=== PATIENT | male | born 1970 | race African-American/Black ===

== ENCOUNTER 2018-01-17 12:11 | Inpatient (IN) | payer OTHER ==
[2018-01-17 12:35] VITALS: BMI 20.7
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
[2018-01-17] MEDS ORDERED: chlordiazePOXIDE HCL 25 MG CAPSULE PO ONE (14:57)
[2018-01-17] MEDS ORDERED: MAGNESIUM CITRATE 300 ML BOTTLE PO PRN (14:57)
[2018-01-17] MEDS ORDERED: MAGNESIUM HYDROX 2400MG/30ML ORAL SUSPENSION 30 ML CUP PO PRN (14:57)
[2018-01-17] MEDS ORDERED: guaiFENesin/D-METHORPHAN HB 10 ML UNIT-DOSE CUPS PO PRN (14:57)
[2018-01-17] MEDS ORDERED: MENTHOL/PHENOL 1 EACH UD MM PRN (14:57)
[2018-01-17] MEDS ORDERED: LOPERAMIDE HCL 2 MG CAPSULE PO PRN (14:57)
[2018-01-17] MEDS ORDERED: MAG HYDROX/AL HYDROX/SIMETH 30 ML UNIT-DOSE CUP PO PRN (14:57)
[2018-01-17] MEDS ORDERED: P-EPHED 60MG/TRIPROLIDI 2.5MG TABLET PO PRN (14:57)
[2018-01-17] MEDS ORDERED: chlordiazePOXIDE HCL 25 MG CAPSULE PO PRN (14:57)
[2018-01-17] MEDS ORDERED: METHADONE HCL 10 MG TABLET (FOR DETOX USE ONLY) PO ONE ×2 (14:57→23:00)
[2018-01-17] MEDS ORDERED: ACETAMINOPHEN 325 MG TABLET (FP) PO PRN (14:57)
[2018-01-17] MEDS ORDERED: IBUPROFEN 400 MG TABLET (FP) PO PRN (14:57)
[2018-01-17] MEDS ORDERED: hydrOXYzine PAMOATE 25 MG CAPSULE (FP) PO PRN (14:57)
[2018-01-17] MEDS: chlordiazePOXIDE HCL 25 MG CAPSULE PO SCH ×2 (17:02→22:05)
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
[2018-01-17] MEDS: MELATONIN 5 MG TABLETS PO SCH (22:05)
[2018-01-17] MEDS: BACITRACIN 15 GM TUBE TOPICAL OINTMENT TP SCH (22:05)
[2018-01-17] MEDS: TRIAMCINOLONE ACET 0.1% ORAL 5 GM TUBE DT SCH (22:06)
[2018-01-17] MEDS: THIAMINE HCL 100 MG TABLET (FP) PO SCH (22:06)
[2018-01-18] MEDS: chlordiazePOXIDE HCL 25 MG CAPSULE PO SCH ×4 (05:37→22:10)
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
[2018-01-18] MEDS ORDERED: BACITRACIN 0.9 GM PACKET ONE (09:13)
[2018-01-18] MEDS ORDERED: METHADONE HCL 10 MG TABLET (FOR DETOX USE ONLY) PO SCH (10:00)
[2018-01-18] MEDS: PRENATAL VITAMINS W/ FOLIC ACID TABLET (FP) PO SCH (10:15)
[2018-01-18] MEDS: BACITRACIN 15 GM TUBE TOPICAL OINTMENT TP SCH (10:16)
[2018-01-18 11:13] LABS: HEMATOCRIT 40.8 % (35.4-49); HEMOGLOBIN 13.5 GM/dL (11.7-16.9); MCH 28.3 pg (25.7-33.7); MEAN CELL VOLUME 85.7 fl (80-96); MEAN PLT VOLUME 7.2 fl (7.5-11.1); PLATELET COUNT 432 K/MM3 (134-434); RBC 4.77 M/mm3 (4.00-5.60); RDW 14.4 % (11.9-15.9); WHITE BLOOD COUNT 4.6 K/mm3 (4.0-10.0)
[2018-01-18 11:15] LABS: URINE APPEARANCE TURBID; URINE BILIRUBIN NEGATIVE (<2.0 mg/dL); URINE BLOOD NEGATIVE (NEGATIVE); URINE GLUCOSE (UA) NEGATIVE (NEGATIVE); URINE KETONE NEGATIVE (NEGATIVE); URINE LEUK ESTERASE NEGATIVE (NEGATIVE); URINE NITRITE NEGATIVE (NEGATIVE); URINE PROTEIN NEGATIVE (NEGATIVE); URINE UROBILINOGEN NEGATIVE mg/dL (0.2-1.0)
[2018-01-18 11:19] LABS: URINE COLOR DK YELLOW
[2018-01-18 11:20] LABS: CHLORIDE 107 mmol/L (98-107); POTASSIUM 4.2 mmol/L (3.5-5.1); SODIUM 143 mmol/L (136-145)
[2018-01-18 12:09] LABS: ALBUMIN 2.8 g/dl (3.4-5.0); ALK PHOS 93 U/L (45-117); ANION GAP 11 (8-16); BILIRUBIN,TOTAL 0.2 mg/dL (0.2-1.0); BLOOD UREA NITROGEN 14 mg/dL (7-18); CALCIUM 8.3 mg/dL (8.5-10.1); CO2 25 mmol/L (21-32); GLUCOSE,RANDOM 110 mg/dL (74-106); SGOT/AST 13 U/L (15-37); SGPT/ALT 16 U/L (12-78); TOT PROT 6.3 g/dl (6.4-8.2)
[2018-01-18 12:38] LABS: SICKLE CELL SCREEN NEGATIVE (NEGATIVE)
--- NOTE | 2018-01-18 13:09 | PN ---
[facility] CIWA - CIWA Score Nausea/Vomitin-Mild Nausea/No Vomiting Muscle Tremors: 4-Moderate,w/Arms Extend Anxiety: 4-Mod. Anxious/Guarded Agitation: 4-Moderately Restless Paroxysmal Sweats: 1-Minimal Palms Moist Orientation: 0-Oriented Tacttile Disturbances: 0-None Auditory Disturbances: 0-None Visual Disturbances: 0-None Headache: 0-None Present CIWA-Ar Total Score: 14 S COWS - Scale Resting Pulse: 0= [place] 80 or Below Sweatin= Chills/Flushing Restless Observation: 1= Difficult to Sit Still Pupil Size: 0= Normal to Room Light Bone or Joint Aches: 1= Mild Discomfort Runny Nose/ Eye Tearin= None GI Upset > 30mins: 1= Stomach Cramp Tremor Observation of Outstretched Hands: 1= Tremor [place], Not Seen Yawning Observation: 1= 1-2x During Session Anxiety or Irritability: 1=Feels Anxious/Irritable Goose Flesh Skin: 0=Smooth Skin COWS Score: 7 [facility] Progress Note (SOAP) Subjective: mild joint ache body ache tremor sweat mild gi distress Objective: 01/18/18 13:08 Vital Signs Temperature 99 F 01/18/18 10:00 Pulse Rate 85 01/18/18 10:00 Respiratory Rate 18 01/18/18 10:00 Blood Pressure 124/68 01/18/18 10:00 O2 Sat by Pulse Oximetry (%) Laboratory Last Values WBC 4.6 K/mm3 (4.0-10.0) 01/18/18 07:45 RBC 4.77 M/mm3 (4.00-5.60) 01/18/18 07:45 Hgb 13.5 GM/dL (11.7-16.9) 01/18/18 07:45 Hct 40.8 % (35.4-49) 01/18/18 07:45 MCV 85.7 fl (80-96) 01/18/18 07:45 MCH 28.3 pg (25.7-33.7) 01/18/18 07:45 MCHC 33.0 g/dl (32.0-35.9) 01/18/18 07:45 RDW 14.4 % (11.9-15.9) 01/18/18 07:45 Plt Count 432 K/MM3 (134-434) 01/18/18 07:45 MPV 7.2 fl (7.5-11.1) L 01/18/18 07:45 Sickle Cell Screen Negative (NEGATIVE) 01/18/18 07:45 Sodium 143 mmol/L (136-145) 01/18/18 07:45 Potassium 4.2 mmol/L (3.5-5.1) 01/18/18 07:45 Chloride 107 mmol/L (98-107) 01/18/18 07:45 Carbon Dioxide 25 mmol/L (21-32) 01/18/18 07:45 Anion Gap 11 (8-16) 01/18/18 07:45 BUN 14 mg/dL (7-18) 01/18/18 07:45 Creatinine 1.0 mg/dL (0.7-1.3) 01/18/18 07:45 Creat Clearance w eGFR > 60 (>60) 01/18/18 07:45 Random Glucose 110 mg/dL (74-106) H 01/18/18 07:45 Calcium 8.3 mg/dL (8.5-10.1) L 01/18/18 07:45 Total Bilirubin 0.2 mg/dL (0.2-1.0) 01/18/18 07:45 AST 13 U/L (15-37) L 01/18/18 07:45 ALT 16 U/L (12-78) 01/18/18 07:45 Alkaline Phosphatase 93 U/L (45-117) 01/18/18 07:45 Total Protein 6.3 g/dl (6.4-8.2) L 01/18/18 07:45 Albumin 2.8 g/dl (3.4-5.0) L 01/18/18 07:45 Urine Color Dk yellow 01/18/18 07:45 Urine Appearance Turbid 01/18/18 07:45 Urine pH 5.0 (5.0-8.0) 01/18/18 07:45 Ur Specific [place] 1.025 (1.001-1.035) 01/18/18 07:45 Urine Protein Negative (NEGATIVE) 01/18/18 07:45 Urine Glucose (UA) Negative (NEGATIVE) 01/18/18 07:45 Urine Ketones Negative (NEGATIVE) 01/18/18 07:45 Urine Blood Negative (NEGATIVE) 01/18/18 07:45 Urine Nitrite Negative (NEGATIVE) 01/18/18 07:45 Urine Bilirubin Negative (<2.0 mg/dL) 01/18/18 07:45 Urine Urobilinogen Negative mg/dL (0.2-1.0) 01/18/18 07:45 Ur Leukocyte Esterase Negative (NEGATIVE) 01/18/18 07:45 lab noted Assessment: 01/18/18 13:09 withdrawal sx Plan: continue detox
[2018-01-18] MEDS: TRIAMCINOLONE ACET 0.1% ORAL 5 GM TUBE DT SCH ×2 (17:04→22:10)
[2018-01-18] MEDS: MELATONIN 5 MG TABLETS PO SCH (22:10)
[2018-01-18] MEDS: THIAMINE HCL 100 MG TABLET (FP) PO SCH (22:10)
[2018-01-19] MEDS: chlordiazePOXIDE HCL 25 MG CAPSULE PO SCH ×2 (05:15→10:29)
--- NOTE | 2018-01-19 09:10 | EKG ---
Test Reason : Blood Pressure : / mmHG Vent. Rate : 078 BPM Atrial Rate : 078 BPM P-R Int : 150 ms QRS Dur : 082 ms QT Int : 386 ms P-R-T Axes : 085 084 075 degrees QTc Int : 440 ms NORMAL SINUS RHYTHM RIGHT ATRIAL ENLARGEMENT MINIMAL VOLTAGE CRITERIA FOR LVH, MAY BE NORMAL VARIANT BORDERLINE ECG NO PREVIOUS ECGS AVAILABLE Confirmed by MARY SAN MD ([id number]) on 01/19/2018 9:09:51 AM Referred By: Confirmed By:MARY SAN MD
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
[2018-01-19] MEDS: PRENATAL VITAMINS W/ FOLIC ACID TABLET (FP) PO SCH (10:28)
[2018-01-19] MEDS: TRIAMCINOLONE ACET 0.1% ORAL 5 GM TUBE DT SCH ×2 (10:28→22:55)
[2018-01-19] MEDS: BACITRACIN 15 GM TUBE TOPICAL OINTMENT TP SCH (10:28)
[2018-01-19] MEDS: METHADONE HCL 5 MG TABLET (FOR DETOX USE ONLY) PO SCH (10:29)
[2018-01-19] MEDS: chlordiazePOXIDE 5 MG CAPSULE PO SCH ×2 (18:08→22:06)
[2018-01-19] MEDS: THIAMINE HCL 100 MG TABLET (FP) PO SCH (22:06)
[2018-01-19] MEDS: MELATONIN 5 MG TABLETS PO SCH (22:07)
[2018-01-20] MEDS: chlordiazePOXIDE 5 MG CAPSULE PO SCH ×2 (05:50→10:12)
[2018-01-20] MEDS: METHADONE HCL 5 MG TABLET (FOR DETOX USE ONLY) PO SCH (10:11)
[2018-01-20] MEDS: TRIAMCINOLONE ACET 0.1% ORAL 5 GM TUBE DT SCH ×2 (10:11→22:10)
[2018-01-20] MEDS: PRENATAL VITAMINS W/ FOLIC ACID TABLET (FP) PO SCH (10:11)
[2018-01-20] MEDS: BACITRACIN 0.9 GM PACKET TP SCH (10:11)
--- NOTE | 2018-01-20 10:33 | PN ---
[facility] Progress Note (SOAP) Subjective: ALERT,IRRITABLE,ANXIOUS,INTERRUPTED SLEEP,PAIN IN THE BODY Objective: 01/20/18 10:36 Vital Signs Temperature 98.6 F 01/20/18 09:45 Pulse Rate 92 H 01/20/18 09:45 Respiratory Rate 16 01/20/18 09:45 Blood Pressure 123/60 01/20/18 09:45 O2 Sat by Pulse Oximetry (%) 01/20/18 10:37 FASTING BLOOD GLUCOSE PENDING Assessment: 01/20/18 10:37 WITHDRAWAL SYMPTOM Plan: CONTINUE DETOX
[2018-01-20] MEDS: chlordiazePOXIDE HCL 10 MG CAPSULE PO SCH ×2 (17:38→22:07)
[2018-01-20] MEDS: THIAMINE HCL 100 MG TABLET (FP) PO SCH (22:08)
[2018-01-20] MEDS: MELATONIN 5 MG TABLETS PO SCH (22:08)
[2018-01-21] MEDS: chlordiazePOXIDE HCL 10 MG CAPSULE PO SCH ×2 (05:35→11:10)
--- NOTE | 2018-01-21 09:43 | PN ---
S Progress Note (SOAP) Subjective: ALERT,IRRITABLE,ANXIOUS,INTERRUPTED SLEEP Objective: 01/21/18 09:42 Vital Signs Temperature 97.7 F 01/21/18 06:28 Pulse Rate 68 01/21/18 06:28 Respiratory Rate 17 01/21/18 06:28 Blood Pressure 122/69 01/21/18 06:28 O2 Sat by Pulse Oximetry (%) Assessment: 01/21/18 09:42 WITHDRAWAL SYMPTOM Plan: CONTINUE DETOX,DISCHARGE IN AM
[2018-01-21] MEDS ORDERED: METHADONE HCL 10 MG TABLET (FOR DETOX USE ONLY) PO SCH (10:00)
[2018-01-21] MEDS: TRIAMCINOLONE ACET 0.1% ORAL 5 GM TUBE DT SCH ×2 (11:10→22:46)
[2018-01-21] MEDS: PRENATAL VITAMINS W/ FOLIC ACID TABLET (FP) PO SCH (11:10)
[2018-01-21] MEDS: BACITRACIN 0.9 GM PACKET TP SCH (11:10)
[2018-01-21] MEDS: THIAMINE HCL 100 MG TABLET (FP) PO SCH (22:08)
[2018-01-21] MEDS: MELATONIN 5 MG TABLETS PO SCH (22:08)
[2018-01-22] MEDS ORDERED: METHADONE HCL 5 MG TABLET (FOR DETOX USE ONLY) PO SCH (06:00)
[2018-01-22 06:11] VITALS: BP 130/76; PULSE 67; TEMP 97.7
[2018-01-22] MEDS: PRENATAL VITAMINS W/ FOLIC ACID TABLET (FP) PO SCH (09:18)
--- NOTE | 2018-01-22 09:59 | PN ---
S Progress Note (SOAP) Subjective: ALERT,NO COMPLAINT Objective: 01/22/18 09:57 Vital Signs Temperature 97.7 F 01/22/18 06:00 Pulse Rate 67 01/22/18 06:00 Respiratory Rate 18 01/22/18 06:00 Blood Pressure 130/76 01/22/18 06:00 O2 Sat by Pulse Oximetry (%) Assessment: 01/22/18 09:58 DETOX COMPLETED ,NO WITHDRAWAL SYMPTOM Plan: DISCHARGE [facility],FOLLOW UP WITH AFTER CARE PROGRAM ARRANGEMENT
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
== END 2018-01-22 09:24 | disposition home or self-care (01) | DRG 773 ==
LOC: YASAS 12:11 → Y6N 15:46
PROVIDERS: ADMIT Internal Medicine; ATTEND Internal Medicine
PROC: HZ2ZZZZ Detoxification Services for Substance Abuse Treatment (ICD-10-PCS; principal; 2018-01-17)
DX: F19.230 Other psychoactive substance dependence with withdrawal, uncomplicated (principal); F11.23 Opioid dependence with withdrawal; F10.230 Alcohol dependence with withdrawal, uncomplicated; F14.20 Cocaine dependence, uncomplicated; F17.210 Nicotine dependence, cigarettes, uncomplicated; E86.0 Dehydration; A69.0 Necrotizing ulcerative stomatitis; S63.8X2D Sprain of other part of left wrist and hand, subsequent encounter; Y04.0XXD Assault by unarmed brawl or fight, subsequent encounter
CPT/HCPCS: 36415; 80053; 81003; 82947; 85027; 85660; 86593; 93005; 93010

== ENCOUNTER 2018-02-25 11:47 | Inpatient (IN) | payer OTHER ==
[2018-02-25 12:35] VITALS: BMI 22.3
--- NOTE | 2018-02-25 14:24 | HP ---
COWS - Scale Resting Pulse: 1= SD 81-100 Sweatin= Chills/Flushing Restless Observation: 1= Difficult to Sit Still Pupil Size: 2= Moderately Dilated Bone or Joint Aches: 2= Severe Diffuse Aches Runny Nose/ Eye Tearin= Runny Nose/Eyes GI Upset > 30mins: 1= Stomach Cramp (denies diarrhea mild nausea) Tremor Observation: 2= Slight Tremor Visible Yawning Observation: 2= >3x During Session Anxiety or Irritability: 2=Irritable/Anxious Goose Flesh Skin: 0=Smooth Skin COWS Score: 16 Admission [facility] Chief Complaint: opioid withdrawal sx Allergies/Adverse Reactions: Allergies Allergy/AdvReac Type Severity Reaction Status Date / Time No Known Allergies Allergy Verified 02/25/18 14:31 History of Present Illness: 47 years old male with long history of opioid nicotine dependence has Exam Limitations: No Limitations - Ebola screening Have you traveled outside of the country in the last 21 days: No Have you had contact with anyone from an Ebola affected area: No Have you been sick,other than usual withdrawal symptoms: No Do you have a fever: No - Review of Systems Constitutional: Loss of Appetite, Changes in sleep, Unintentional Wgt. Loss, Unexplained wgt Loss EENT: reports: No Symptoms Reported, Nose Congestion, Other (nasal septal erosive by cocaine and heroin sniffy no bleeding) Respiratory: reports: No Symptoms reported Cardiac: reports: No Symptoms Reported GI: reports: Nausea, Poor Fluid Intake, Abdominal cramping : reports: No Symptoms Reported Musculoskeletal: reports: Back Pain, Joint Pain, Muscle Pain, Neck Pain Integumentary: reports: No Symptoms Reported Neuro: reports: Tremors Endocrine: reports: No Symptoms Reported Hematology: reports: No Symptoms Reported Psychiatric: reports: Judgement Intact, Orientated x3, Depressed Other Systems: Reviewed and Negative Patient History - Patient Medical History Hx Anemia: No Hx Asthma: No Hx Chronic Obstructive Pulmonary Disease (COPD): No Hx Cancer: No Hx Cardiac Disorders: No Hx Congestive Heart Failure: No Hx Hypertension: No Hx Hypercholesterolemia: No Hx Pacemaker: No HX Cerebrovascular Accident: No Hx Seizures: No Hx Diabetes: No Hx Gastrointestinal Disorders: No Hx Liver Disease: No Hx Genitourinary Disorders: No Hx Sexually Transmitted Disorders: No Hx Renal Disease (ESRD): No Hx Thyroid Disease: No Hx Human Immunodeficiency Virus (HIV): No Hx Hepatitis C: No Hx Depression: Yes Hx Suicide Attempt: No Hx Bipolar Disorder: No Hx Schizophrenia: No - Patient Surgical History Past Surgical History: No Hx Neurologic Surgery: No Hx Cataract Extraction: No Hx Cardiac Surgery: No Hx Lung Surgery: No Hx Breast Surgery: No Hx Breast Biopsy: No Hx Abdominal Surgery: No Hx Appendectomy: No Hx Cholecystectomy: No Hx Genitourinary Surgery: No Hx Orthopedic Surgery: No - PPD History Previous Implant?: Yes Documented Results: Negative w/proof Implanted On Prior [facility] Admission?: Yes Date: 01/19/18 PPD to be Administered?: No - Smoking Cessation Smoking history: Current every day smoker Have you smoked in the past 12 months: Yes Aproximately how many cigarettes per day: 20 Cigars Per Day: 0 Hx Chewing Tobacco Use: No Initiated information on smoking cessation: Yes 'Breaking Loose' booklet given: 02/25/18 - Substance & Tx. History Hx Alcohol Use: No Hx Substance Use: Yes Substance Use Type: Opiates Hx Substance Use Treatment: Yes (12/2017 [facility] Family Disease History - Family Disease History Family Disease History: Other: Father (living,healthy), Mother (living, healthy) , Brother (four - living - healthy), Sister (three - living - healthy), Son ( three - adult - healthy), Daughter (three - adult -healthy) Admission Physical Exam S - Vital Signs Vital Signs: Vital Signs - 24 hr 02/25/18 12:32 Temperature 97.6 F Pulse Rate 93 H Respiratory 20 Rate Blood Pressure 124/72 - Physical General Appearance: Yes: Appropriately Dressed, Mild Distress, Thin, Tremorous, Irritable, Sweating, Anxious HEENTM: Yes: Hearing grossly Normal, Normocephalic, Normal Voice Respiratory: Yes: Chest Non-Tender, Lungs Clear, Normal Breath Sounds, No Respiratory Distress, No Accessory Muscle Use Neck: Yes: Supple, Trachea in good position Breast: Yes: Breasts Symetrical Cardiology: Yes: Regular Rhythm, S1, S2, Tachycardia Abdominal: Yes: Non Tender, Flat, Increased Bowel Sounds Genitourinary: Yes: Within Normal Limits Back: Yes: Normal Inspection Musculoskeletal: Yes: full range of Motion, Gait Steady, Back pain, Muscle Pain Extremities: Yes: Normal Inspection, Normal Range of Motion, Non-Tender, Tremors Neurological: Yes: Fully Oriented, Motor Strength 5/5, Normal Response, Depressed Affect Integumentary: Yes: Warm Lymphatic: Yes: Within Normal Limits - Diagnostic (1) Depression (emotion) Current Visit: Yes Status: Suspected Qualifiers: Depression Type: dysthymia Qualified Code(s): F34.1 - Dysthymic disorder (2) Nicotine dependence Current Visit: Yes Status: Acute Qualifiers: Nicotine product type: cigarettes Substance use status: in withdrawal Qualified Code(s): F17.213 - Nicotine dependence, cigarettes, with withdrawal (3) Opioid dependence with withdrawal Current Visit: Yes Status: Acute Cleared for Admission [facility] - Detox or Rehab [facility] Level of Care: Medically Managed Detox Regimen/Protocol: Methadone [facility] Breath Alcohol Content Breath Alcohol Content: 0 Urine Drug Screen - Control Is Test Valid: Yes - Results Drug Screen Negative: No Urine Drug Screen Results: SUPRIYA-Cocaine, OPI-Opiates
[2018-02-25] MEDS ORDERED: MAGNESIUM HYDROX 2400MG/30ML ORAL SUSPENSION 30 ML CUP PO PRN (14:32)
[2018-02-25] MEDS ORDERED: NICOTINE POLACRILEX 4 MG GUM BC PRN (14:32)
[2018-02-25] MEDS ORDERED: MENTHOL/PHENOL 1 EACH UD MM PRN (14:32)
[2018-02-25] MEDS ORDERED: LOPERAMIDE HCL 2 MG CAPSULE PO PRN (14:32)
[2018-02-25] MEDS ORDERED: ACETAMINOPHEN 325 MG TABLET (FP) PO PRN (14:32)
[2018-02-25] MEDS ORDERED: guaiFENesin/D-METHORPHAN HB 10 ML UNIT-DOSE CUPS PO PRN (14:32)
[2018-02-25] MEDS ORDERED: MAGNESIUM CITRATE 300 ML BOTTLE PO PRN (14:32)
[2018-02-25] MEDS ORDERED: P-EPHED 60MG/TRIPROLIDI 2.5MG TABLET PO PRN (14:32)
[2018-02-25] MEDS ORDERED: MAG HYDROX/AL HYDROX/SIMETH 30 ML UNIT-DOSE CUP PO PRN (14:32)
[2018-02-25] MEDS ORDERED: METHADONE HCL 10 MG TABLET (FOR DETOX USE ONLY) PO ONE ×2 (16:45→23:00)
[2018-02-25] MEDS: diazePAM 5 MG TABLET PO PRN ×2 (17:13→22:14)
[2018-02-25] MEDS: NICOTINE 21 MG/24 HOURS TOPICAL PATCH TD SCH (17:14)
[2018-02-25 18:26] LABS: HEMATOCRIT 42.1 % (35.4-49); MCH 28.7 pg (25.7-33.7); MCHC 33.2 g/dl (32.0-35.9); MEAN CELL VOLUME 86.3 fl (80-96); MEAN PLT VOLUME 7.7 fl (7.5-11.1); PLATELET COUNT 313 K/MM3 (134-434); RBC 4.87 M/mm3 (4.00-5.60); WHITE BLOOD COUNT 4.3 K/mm3 (4.0-10.0)
[2018-02-25 19:31] LABS: ALBUMIN 3.4 g/dl (3.4-5.0); ANION GAP 5 (8-16); BILIRUBIN,TOTAL 0.4 mg/dL (0.2-1.0); BLOOD UREA NITROGEN 14 mg/dL (7-18); CALCIUM 8.4 mg/dL (8.5-10.1); CHLORIDE 108 mmol/L (98-107); CO2 28 mmol/L (21-32); GLUCOSE,RANDOM 79 mg/dL (74-106); SGPT/ALT 26 U/L (12-78); SODIUM 141 mmol/L (136-145); TOT PROT 6.7 g/dl (6.4-8.2)
[2018-02-25 19:32] LABS: ALK PHOS 107 U/L (45-117)
[2018-02-25 19:45] LABS: POTASSIUM 4.4 mmol/L (3.5-5.1); SGOT/AST 25 U/L (15-37)
[2018-02-25] MEDS: THIAMINE HCL 100 MG TABLET (FP) PO SCH (22:12)
[2018-02-25] MEDS: MELATONIN 5 MG TABLETS PO PRN (22:16)
[2018-02-25 23:45] LABS: URINE APPEARANCE TURBID; URINE BILIRUBIN NEGATIVE (<2.0 mg/dL); URINE COLOR YELLOW; URINE GLUCOSE (UA) NEGATIVE (NEGATIVE); URINE KETONE NEGATIVE (NEGATIVE); URINE LEUK ESTERASE NEGATIVE (NEGATIVE); URINE NITRITE NEGATIVE (NEGATIVE); URINE PROTEIN NEGATIVE (NEGATIVE)
--- NOTE | 2018-02-26 09:23 | CONSULT ---
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 This is one of multiple admissions for patient. Pt. admitted to for alcohol and cocaine dependence. Substance Abuse History: Smoking Cessation. Smoking history: Current every day smoker. Have you smoked in the past 12 months: Yes. Aproximately how many cigarettes per day: 20. Cigars Per Day: 0. Hx Chewing Tobacco Use: No. Initiated information on smoking cessation: Yes. 'Breaking Loose' booklet given : 02/25/18. - Substance & Tx. History. Hx Alcohol Use: No. Hx Substance Use: Yes. Substance Use Type: Opiates. Hx Substance Use Treatment: Yes (12/2017 [facility] Psychiatric History: Patient denies h/o psychiatric hospitalizations, outpatient care, and suicide attempt. Mental Status Exam - Mental Status Exam Alert and Oriented to: Time, Place, Person Cognitive Function: Good Patient Appearance: Well Groomed Mood: Euthymic Affect: Mood Congruent Patient Behavior: Appropriate, Cooperative Speech Pattern: Appropriate Voice Loudness: Normal Thought Process: Goal Oriented Thought Disorder: Not Present Hallucinations: Denies Suicidal Ideation: Denies Homicidal Ideation: Denies Insight/Judgement: Poor Sleep: Fair Appetite: Fair Muscle strength/Tone: Normal Gait/Station: Normal Psychiatric Findings - Problem List ([place] 1, 2,3) (1) Nicotine dependence Current Visit: Yes Status: Acute Qualifiers: Nicotine product type: cigarettes Substance use status: in withdrawal Qualified Code(s): F17.213 - Nicotine dependence, cigarettes, with withdrawal (2) Opioid dependence with withdrawal Current Visit: Yes Status: Acute (3) Cocaine dependence Current Visit: Yes Status: Acute Qualifiers: Substance use status: uncomplicated Qualified Code(s): F14.20 - Cocaine dependence, uncomplicated - Initial Treatment Plan Initial Treatment Plan: Psychoeducation provided. Detoxification in progress. Vistaril 50mg q4h for anxiety. Benefits and side effects discussed. Verbal consent given. Observation.
[2018-02-26] MEDS ORDERED: METHADONE HCL 10 MG TABLET (FOR DETOX USE ONLY) PO ONE (10:00)
[2018-02-26] MEDS: PRENATAL VITAMINS W/ FOLIC ACID TABLET (FP) PO SCH (10:23)
[2018-02-26] MEDS: diazePAM 5 MG TABLET PO PRN ×3 (10:23→20:24)
[2018-02-26] MEDS: NICOTINE 21 MG/24 HOURS TOPICAL PATCH TD SCH (10:23)
--- NOTE | 2018-02-26 11:12 | PN ---
BHS COWS - Scale Resting Pulse: 1= SD 81-100 Sweatin= Chills/Flushing Restless Observation: 3= Extraneous Movement Pupil Size: 2= Moderately Dilated Bone or Joint Aches: 1= Mild Discomfort Runny Nose/ Eye Tearin= None GI Upset > 30mins: 0= None Tremor Observation of Outstretched Hands: 1= Tremor [place], Not Seen Yawning Observation: 1= 1-2x During Session Anxiety or Irritability: 2=Irritable/Anxious Goose Flesh Skin: 0=Smooth Skin COWS Score: 12 BHS Progress Note (SOAP) Subjective: ANXIETY,SWEATS,IRRITABILITY,DEPRESSED MOOD,FATIGUE. ALERT O X 3. Objective: 02/26/18 11:11 Vital Signs Temperature 97.5 F L 02/26/18 09:18 Pulse Rate 88 02/26/18 09:18 Respiratory Rate 17 02/26/18 09:18 Blood Pressure 122/73 02/26/18 09:18 O2 Sat by Pulse Oximetry (%) Laboratory Tests 02/25/18 02/25/18 02/25/18 15:00 15:00 15:00 WBC 4.3 RBC 4.87 Hgb 14.0 Hct 42.1 MCV 86.3 MCH 28.7 MCHC 33.2 RDW 15.0 Plt Count 313 D MPV 7.7 Sodium 141 Potassium 4.4 Chloride 108 H Carbon Dioxide 28 Anion Gap 5 L BUN 14 Creatinine 1.0 Creat Clearance w eGFR > 60 Random Glucose 79 D Calcium 8.4 L Total Bilirubin 0.4 D AST 25 D ALT 26 D Alkaline Phosphatase 107 Total Protein 6.7 Albumin 3.4 D Urine Color Urine Appearance Urine pH Ur Specific [place] Urine Protein Urine Glucose (UA) Urine Ketones Urine Blood Urine Nitrite Urine Bilirubin Urine Urobilinogen Ur Leukocyte Esterase RPR Titer Nonreactive 02/25/18 23:48 WBC RBC Hgb Hct MCV MCH MCHC RDW Plt Count MPV Sodium Potassium Chloride Carbon Dioxide Anion Gap BUN Creatinine Creat Clearance w eGFR Random Glucose Calcium Total Bilirubin AST ALT Alkaline Phosphatase Total Protein Albumin Urine Color Yellow Urine Appearance Turbid Urine pH 5.0 Ur Specific [place] 1.031 Urine Protein Negative Urine Glucose (UA) Negative Urine Ketones Negative Urine Blood Negative Urine Nitrite Negative Urine Bilirubin Negative Urine Urobilinogen 2.0 Ur Leukocyte Esterase Negative RPR Titer Assessment: 02/26/18 11:11 WITHDRAWAL SX Plan: CONTINUE DETOX
--- NOTE | 2018-02-26 11:32 | EKG ---
Test Reason : Blood Pressure : / mmHG Vent. Rate : 079 BPM Atrial Rate : 079 BPM P-R Int : 152 ms QRS Dur : 080 ms QT Int : 398 ms P-R-T Axes : 079 076 067 degrees QTc Int : 456 ms NORMAL SINUS RHYTHM VOLTAGE CRITERIA FOR LEFT VENTRICULAR HYPERTROPHY ABNORMAL ECG WHEN COMPARED WITH ECG OF 17-JAN-2018 16:08, NO SIGNIFICANT CHANGE WAS FOUND Confirmed by CECY HURTADO, BOB ([id number]) on 02/26/2018 11:31:27 AM Referred By: Confirmed By:BOB SAM MD
[2018-02-26] MEDS: THIAMINE HCL 100 MG TABLET (FP) PO SCH (22:29)
[2018-02-26] MEDS: MELATONIN 5 MG TABLETS PO PRN (22:43)
[2018-02-27] MEDS ORDERED: METHADONE HCL 5 MG TABLET (FOR DETOX USE ONLY) PO ONE (10:00)
[2018-02-27] MEDS: PRENATAL VITAMINS W/ FOLIC ACID TABLET (FP) PO SCH (10:00)
[2018-02-27] MEDS: diazePAM 5 MG TABLET PO PRN (10:00)
[2018-02-27] MEDS: NICOTINE 21 MG/24 HOURS TOPICAL PATCH TD SCH (10:03)
--- NOTE | 2018-02-27 12:33 | PN ---
BHS COWS - Scale Resting Pulse: 0= [place] 80 or Below Sweatin=Flushed/Facial Moisture Restless Observation: 3= Extraneous Movement Pupil Size: 0= Normal to Room Light Bone or Joint Aches: 4=Acute Joint/Muscle Pain Runny Nose/ Eye Tearin= None GI Upset > 30mins: 0= None Tremor Observation of Outstretched Hands: 1= Tremor [place], Not Seen Yawning Observation: 0= None Anxiety or Irritability: 2=Irritable/Anxious Goose Flesh Skin: 0=Smooth Skin COWS Score: 12 BHS Progress Note (SOAP) Subjective: ANXIETY,IRRITABILITY,RESTLESSNESS, INTERMITTENT SLEEP. Objective: 02/27/18 12:33 Vital Signs 02/27/18 02/27/18 06:11 10:00 Temperature 96.5 F L 98.7 F Pulse Rate 73 80 Respiratory 18 20 Rate Blood Pressure 122/67 120/80 Laboratory Tests 02/25/18 02/25/18 02/25/18 15:00 15:00 15:00 WBC 4.3 RBC 4.87 Hgb 14.0 Hct 42.1 MCV 86.3 MCH 28.7 MCHC 33.2 RDW 15.0 Plt Count 313 D MPV 7.7 Sodium 141 Potassium 4.4 Chloride 108 H Carbon Dioxide 28 Anion Gap 5 L BUN 14 Creatinine 1.0 Creat Clearance w eGFR > 60 Random Glucose 79 D Calcium 8.4 L Total Bilirubin 0.4 D AST 25 D ALT 26 D Alkaline Phosphatase 107 Total Protein 6.7 Albumin 3.4 D Urine Color Urine Appearance Urine pH Ur Specific [place] Urine Protein Urine Glucose (UA) Urine Ketones Urine Blood Urine Nitrite Urine Bilirubin Urine Urobilinogen Ur Leukocyte Esterase RPR Titer Nonreactive 02/25/18 23:48 WBC RBC Hgb Hct MCV MCH MCHC RDW Plt Count MPV Sodium Potassium Chloride Carbon Dioxide Anion Gap BUN Creatinine Creat Clearance w eGFR Random Glucose Calcium Total Bilirubin AST ALT Alkaline Phosphatase Total Protein Albumin Urine Color Yellow Urine Appearance Turbid Urine pH 5.0 Ur Specific [place] 1.031 Urine Protein Negative Urine Glucose (UA) Negative Urine Ketones Negative Urine Blood Negative Urine Nitrite Negative Urine Bilirubin Negative Urine Urobilinogen 2.0 Ur Leukocyte Esterase Negative RPR Titer Assessment: 02/27/18 12:33 WITHDRAWAL SX Plan: CONTINUE DETOX
[2018-02-27] MEDS: THIAMINE HCL 100 MG TABLET (FP) PO SCH (22:27)
[2018-02-27] MEDS: hydrOXYzine PAMOATE 50 MG CAPSULE (FP) PO PRN (22:28)
[2018-02-28] MEDS: diazePAM 5 MG TABLET PO PRN (09:40)
[2018-02-28] MEDS: IBUPROFEN 400 MG TABLET (FP) PO PRN (09:40)
[2018-02-28] MEDS ORDERED: METHADONE HCL 5 MG TABLET (FOR DETOX USE ONLY) PO ONE (10:00)
[2018-02-28] MEDS: PRENATAL VITAMINS W/ FOLIC ACID TABLET (FP) PO SCH (10:23)
[2018-02-28] MEDS: NICOTINE 21 MG/24 HOURS TOPICAL PATCH TD SCH (10:26)
--- NOTE | 2018-02-28 13:49 | PN ---
BHS Progress Note (SOAP) Subjective: Body Aches, Fatigue, Tremors. Objective: PATIENT A & O X 2 (UNCERTAIN ABOUT CURRENT DAY / DATE). NO ACUTE DISTRESS. 02/28/18 13:46 Vital Signs Temperature 96 F L 02/28/18 09:21 Pulse Rate 74 02/28/18 09:21 Respiratory Rate 20 02/28/18 09:21 Blood Pressure 117/75 02/28/18 09:21 O2 Sat by Pulse Oximetry (%) Laboratory Tests 02/25/18 02/25/18 02/25/18 15:00 15:00 15:00 WBC 4.3 RBC 4.87 Hgb 14.0 Hct 42.1 MCV 86.3 MCH 28.7 MCHC 33.2 RDW 15.0 Plt Count 313 D MPV 7.7 Sodium 141 Potassium 4.4 Chloride 108 H Carbon Dioxide 28 Anion Gap 5 L BUN 14 Creatinine 1.0 Creat Clearance w eGFR > 60 Random Glucose 79 D Calcium 8.4 L Total Bilirubin 0.4 D AST 25 D ALT 26 D Alkaline Phosphatase 107 Total Protein 6.7 Albumin 3.4 D Urine Color Urine Appearance Urine pH Ur Specific [place] Urine Protein Urine Glucose (UA) Urine Ketones Urine Blood Urine Nitrite Urine Bilirubin Urine Urobilinogen Ur Leukocyte Esterase RPR Titer Nonreactive 02/25/18 23:48 WBC RBC Hgb Hct MCV MCH MCHC RDW Plt Count MPV Sodium Potassium Chloride Carbon Dioxide Anion Gap BUN Creatinine Creat Clearance w eGFR Random Glucose Calcium Total Bilirubin AST ALT Alkaline Phosphatase Total Protein Albumin Urine Color Yellow Urine Appearance Turbid Urine pH 5.0 Ur Specific [place] 1.031 Urine Protein Negative Urine Glucose (UA) Negative Urine Ketones Negative Urine Blood Negative Urine Nitrite Negative Urine Bilirubin Negative Urine Urobilinogen 2.0 Ur Leukocyte Esterase Negative RPR Titer LABS NOTED. Assessment: 02/28/18 13:48 WITHDRAWAL SYMPTOMS. Plan: CONTINUE DETOX.
[2018-02-28] MEDS: THIAMINE HCL 100 MG TABLET (FP) PO SCH (22:20)
[2018-02-28] MEDS: hydrOXYzine PAMOATE 50 MG CAPSULE (FP) PO PRN (22:21)
[2018-03-01] MEDS: IBUPROFEN 400 MG TABLET (FP) PO PRN (09:32)
[2018-03-01] MEDS ORDERED: METHADONE HCL 10 MG TABLET (FOR DETOX USE ONLY) PO ONE (10:00)
[2018-03-01] MEDS: PRENATAL VITAMINS W/ FOLIC ACID TABLET (FP) PO SCH (10:31)
[2018-03-01] MEDS: NICOTINE 21 MG/24 HOURS TOPICAL PATCH TD SCH (10:32)
--- NOTE | 2018-03-01 12:02 | PN ---
BHS Progress Note (SOAP) Subjective: ANXIETY,SWEATS AND BODY ACHES. DECREASED IRRITABILITY. Objective: 03/01/18 12:01 Vital Signs Temperature 96.9 F L 03/01/18 09:25 Pulse Rate 74 03/01/18 09:25 Respiratory Rate 18 03/01/18 09:25 Blood Pressure 119/70 03/01/18 09:25 O2 Sat by Pulse Oximetry (%) Laboratory Tests 02/25/18 02/25/18 02/25/18 15:00 15:00 15:00 WBC 4.3 RBC 4.87 Hgb 14.0 Hct 42.1 MCV 86.3 MCH 28.7 MCHC 33.2 RDW 15.0 Plt Count 313 D MPV 7.7 Sodium 141 Potassium 4.4 Chloride 108 H Carbon Dioxide 28 Anion Gap 5 L BUN 14 Creatinine 1.0 Creat Clearance w eGFR > 60 Random Glucose 79 D Calcium 8.4 L Total Bilirubin 0.4 D AST 25 D ALT 26 D Alkaline Phosphatase 107 Total Protein 6.7 Albumin 3.4 D Urine Color Urine Appearance Urine pH Ur Specific [place] Urine Protein Urine Glucose (UA) Urine Ketones Urine Blood Urine Nitrite Urine Bilirubin Urine Urobilinogen Ur Leukocyte Esterase RPR Titer Nonreactive 02/25/18 23:48 WBC RBC Hgb Hct MCV MCH MCHC RDW Plt Count MPV Sodium Potassium Chloride Carbon Dioxide Anion Gap BUN Creatinine Creat Clearance w eGFR Random Glucose Calcium Total Bilirubin AST ALT Alkaline Phosphatase Total Protein Albumin Urine Color Yellow Urine Appearance Turbid Urine pH 5.0 Ur Specific [place] 1.031 Urine Protein Negative Urine Glucose (UA) Negative Urine Ketones Negative Urine Blood Negative Urine Nitrite Negative Urine Bilirubin Negative Urine Urobilinogen 2.0 Ur Leukocyte Esterase Negative RPR Titer Assessment: 03/01/18 12:02 WITHDRAWAL SX Plan: CONTINUE DETOX FLEXERIL DIRECTED
[2018-03-01] MEDS: CYCLOBENZAPRINE HCL 10 MG TABLET (FP) PO SCH ×2 (13:03→22:21)
[2018-03-01] MEDS: THIAMINE HCL 100 MG TABLET (FP) PO SCH (22:21)
[2018-03-01] MEDS: hydrOXYzine PAMOATE 50 MG CAPSULE (FP) PO PRN (22:22)
[2018-03-02] MEDS ORDERED: METHADONE HCL 5 MG TABLET (FOR DETOX USE ONLY) PO ONE (06:00)
[2018-03-02] MEDS: CYCLOBENZAPRINE HCL 10 MG TABLET (FP) PO SCH (06:08)
[2018-03-02 09:11] VITALS: BP 119/71; PULSE 75; TEMP 96.9
[2018-03-02] MEDS: PRENATAL VITAMINS W/ FOLIC ACID TABLET (FP) PO SCH (10:21)
[2018-03-02] MEDS: NICOTINE 21 MG/24 HOURS TOPICAL PATCH TD SCH (10:22)
--- NOTE | 2018-03-02 13:01 | PN ---
S Progress Note (SOAP) Subjective: "I feel good" Objective: 03/02/18 13:01 A & O x 3 comfortable, no distress Last Vital Signs Temp Pulse Resp BP Pulse Ox 96.9 F L 75 18 119/71 03/02/18 09:10 03/02/18 09:10 03/02/18 09:10 03/02/18 09:10 Assessment: 03/02/18 13:01 safely and successfully completed detox Plan: For discharge
--- NOTE | 2018-03-02 13:08 | DS ---
[facility] Detox Discharge Summary Admission Date: 02/25/18 Discharge Date: 03/02/18 - History Additional Comments: Pt A & O x 3, being d/c. Pt will do O/P rehab at [facility] - Physical Exam Results Vital Signs: Vital Signs Temperature 96.9 F L 03/02/18 09:10 Pulse Rate 75 03/02/18 09:10 Respiratory Rate 18 03/02/18 09:10 Blood Pressure 119/71 03/02/18 09:10 O2 Sat by Pulse Oximetry (%) Pertinent Admission Physical Exam Findings: withdrawal sx - Treatment Hospital Course: Detox Protocol Followed, Detoxed Safely, Responded well, Discharged Condition Good Patient has Accepted a Rehab Referral to: O/P at [facility] - Medication Discharge Medications: Ambulatory Orders NK [No Known Home Medication] 02/25/18 - Diagnosis (1) Opioid dependence with uncomplicated intoxication Status: Acute (2) Cocaine dependence, uncomplicated Status: Acute (3) Nicotine dependence Status: Chronic Qualifiers: Nicotine product type: cigarettes Substance use status: in withdrawal Qualified Code(s): F17.213 - Nicotine dependence, cigarettes, with withdrawal (4) Depression (emotion) Status: Suspected Qualifiers: Depression Type: dysthymia Qualified Code(s): F34.1 - Dysthymic disorder - AMA Did Patient Leave Against Medical Advice: No
== END 2018-03-02 10:39 | disposition home or self-care (01) | DRG 773 ==
LOC: YASAS 11:47 → Y3N 16:15
PROVIDERS: ADMIT Internal Medicine; ATTEND Internal Medicine
PROC: HZ2ZZZZ Detoxification Services for Substance Abuse Treatment (ICD-10-PCS; principal; 2018-02-25)
DX: F11.23 Opioid dependence with withdrawal (principal); F14.20 Cocaine dependence, uncomplicated; F17.210 Nicotine dependence, cigarettes, uncomplicated; F34.1 Dysthymic disorder; E86.0 Dehydration
CPT/HCPCS: 36415; 80053; 81003; 85027; 86593; 93005; 93010

== ENCOUNTER 2018-09-25 13:01 | Inpatient (IN) | payer OTHER ==
[2018-09-25 13:30] VITALS: BMI 21.0
--- NOTE | 2018-09-25 14:35 | HP ---
COWS - Scale Resting Pulse: 0= [place] 80 or Below Sweatin=Flushed/Facial Moisture Restless Observation: 3= Extraneous Movement Pupil Size: 0= Normal to Room Light Bone or Joint Aches: 2= Severe Diffuse Aches Runny Nose/ Eye Tearin= Runny Nose/Eyes GI Upset > 30mins: 1= Stomach Cramp Tremor Observation: 0= None Yawning Observation: 0= None Anxiety or Irritability: 2=Irritable/Anxious Goose Flesh Skin: 0=Smooth Skin COWS Score: 12 CIWA Score Nausea/Vomitin-No Nausea/No Vomiting Muscle Tremors: None Anxiety: 4-Mod. Anxious/Guarded Agitation: 4-Moderately Restless Paroxysmal Sweats: 2 Orientation: 0-Oriented Tacttile Disturbances: 0-None Auditory Disturbances: 1-Very Mild Visual Disturbances: 1-Very Mild Sensitivity Headache: 0-None Present CIWA-Ar Total Score: 12 - Admission Criteria [facility] Guidelines: Admission for Medically Managed Detox: Requires at least one of the followin. CIWA greater than 12 2. Seizures within the past 24 hours 3. Delirium tremens within the past 24 hours 4. Hallucinations within the past 24 hours 5. Acute intervention needed for co occurring medical disorder 6. Acute intervention needed for co occurring psychiatric disorder 7. Severe withdrawal that cannot be handled at a lower level of care (continued vomiting, continued diarrhea, abnormal vital signs) requiring intravenous medication and/or fluids 8. Admission ROS [facility] - [facility] Allergies/Adverse Reactions: Allergies Allergy/AdvReac Type Severity Reaction Status Date / Time No Known Allergies Allergy Verified 09/25/18 15:15 History of Present Illness: PATIENT HERE REQUESTING DETOX FROM HEROIN USE, REPORTS 7-8 BAGS/DAY DENIES IVDU , USE REPORTED X 20 YEARS , INTERMITTENT PERIODS OF SOBRIETY , LONGEST A FEW MONTHS , DETOX X 4 MOST RECENTLY 1 MO AGO AT [facility] ,REHAB X 1 ABOUT 7 MO AGO @ [facility] , LATEST USE THIS MORNING, CURRENT SYMPTOMS ABOVE. etoh USE - REPORTS 6 -PK/DAY X MANY YEARS, DENIES SEIZURES, BLACKOUTS, FALLS , LATEST USE YESTERDAY . UTOX + SUPRIYA, OPI COCAINE : 1 BAG /DAY TOBACCO : 1 PPD X 30 YEARS BAC0.000 PMHX:CHRONIC BACK PAIN PSHX : DENIES PSYCH : DENIES MEDS : DENIES HOMELESS , UNEMPLOYED Exam Limitations: Clinical Condition - Ebola screening Have you traveled outside of the country in the last 21 days: No Have you had contact with anyone from an Ebola affected area: No Have you been sick,other than usual withdrawal symptoms: No Do you have a fever: No - Review of Systems Constitutional: See HPI EENT: reports: Tearing, Nose Congestion Respiratory: reports: Shortness of Breath (INTERMITTENT) Cardiac: reports: No Symptoms Reported GI: reports: See HPI : reports: No Symptoms Reported Musculoskeletal: reports: Back Pain Integumentary: reports: No Symptoms Reported Neuro: reports: See HPI Psychiatric: reports: Orientated x3 (IRRITABLE THROUGHOUT INTERVIEW, ASSESSMENT DIFFICULT), Agitated, Anxious Patient History - Patient Medical History Hx Anemia: No Hx Asthma: No Hx Chronic Obstructive Pulmonary Disease (COPD): No Hx Cancer: No Hx Cardiac Disorders: No Hx Congestive Heart Failure: No Hx Hypertension: No Hx Hypercholesterolemia: No Hx Pacemaker: No HX Cerebrovascular Accident: No Hx Seizures: No Hx Diabetes: No Hx Gastrointestinal Disorders: No Hx Liver Disease: No Hx Genitourinary Disorders: No Hx Sexually Transmitted Disorders: No Hx Renal Disease (ESRD): No Hx Thyroid Disease: No Hx Human Immunodeficiency Virus (HIV): No Hx Hepatitis C: No Hx Depression: Yes Hx Suicide Attempt: No Hx Bipolar Disorder: No Hx Schizophrenia: No - Patient Surgical History Past Surgical History: No Hx Neurologic Surgery: No Hx Cataract Extraction: No Hx Cardiac Surgery: No Hx Lung Surgery: No Hx Breast Surgery: No Hx Breast Biopsy: No Hx Abdominal Surgery: No Hx Appendectomy: No Hx Cholecystectomy: No Hx Genitourinary Surgery: No Hx Section: No Hx Orthopedic Surgery: No Anesthesia Reaction: No - PPD History Date: 01/19/18 Results: 0 mm - Smoking Cessation Smoking history: Current every day smoker Have you smoked in the past 12 months: Yes Aproximately how many cigarettes per day: 20 Cigars Per Day: 0 Hx Chewing Tobacco Use: No Initiated information on smoking cessation: No - Substances Abused Heroin Route: Inhalation Frequency: Daily Amount used: 7-8 bags Age of first use: 18 Date of Last Use: 09/25/18 Cocaine Route: Smoking Frequency: Daily Amount used: $100 Age of first use: 25 Date of Last Use: 09/24/18 Family Disease History - Family Disease History Family Disease History: Other: Father (living,healthy), Mother (living, healthy) , Brother (four - living - healthy), Sister (three - living - healthy), Son ( three - adult - healthy), Daughter (three - adult -healthy) Admission Physical Exam [facility] - Vital Signs Vital Signs: Vital Signs - 24 hr 09/25/18 13:29 Temperature 97.5 F L Pulse Rate 77 Respiratory 17 Rate Blood Pressure 116/67 - Physical General Appearance: Yes: Moderate Distress, Irritable, Anxious HEENTM: Yes: EOMI, Normocephalic, Normal Voice, Pharynx Normal, Rhinorrhea, Other (POOR DENTITION) Respiratory: Yes: Chest Non-Tender, Lungs Clear, Normal Breath Sounds, No Respiratory Distress, No Accessory Muscle Use Neck: Yes: No masses,lesions,Nodules, Trachea in good position Breast: Yes: Breast Exam Deferred Cardiology: Yes: Regular Rhythm, Regular Rate, S1, S2 Abdominal: Yes: Normal Bowel Sounds, Soft Musculoskeletal: Yes: full range of Motion, Gait Steady Neurological: Yes: Motor Strength 5/5, Depressed Affect Integumentary: Yes: Normal Color, Dry, Warm - Diagnostic (1) Cocaine dependence Current Visit: No Status: Chronic Qualifiers: Substance use status: uncomplicated Qualified Code(s): F14.20 - Cocaine dependence, uncomplicated (2) Opioid dependence with withdrawal Current Visit: No Status: Acute (3) Nicotine dependence Current Visit: No Status: Chronic Qualifiers: Nicotine product type: cigarettes Substance use status: in withdrawal Qualified Code(s): F17.213 - Nicotine dependence, cigarettes, with withdrawal (4) Alcohol dependence with uncomplicated withdrawal Current Visit: No Status: Acute BHS Breath Alcohol Content Breath Alcohol Content: 0 Urine Drug Screen - Results Drug Screen Negative: No Urine Drug Screen Results: SUPRIYA-Cocaine, OPI-Opiates
[2018-09-25] MEDS ORDERED: MAG HYDROX/AL HYDROX/SIMETH 30 ML UNIT-DOSE CUP PO PRN (14:39)
[2018-09-25] MEDS ORDERED: MAGNESIUM CITRATE 300 ML BOTTLE PO PRN (14:39)
[2018-09-25] MEDS ORDERED: ACETAMINOPHEN 325 MG TABLET (FP) PO PRN (14:39)
[2018-09-25] MEDS ORDERED: MENTHOL/PHENOL 1 EACH UD MM PRN (14:39)
[2018-09-25] MEDS ORDERED: IBUPROFEN 400 MG TABLET (FP) PO PRN (14:39)
[2018-09-25] MEDS ORDERED: MAGNESIUM HYDROX 2400MG/30ML ORAL SUSPENSION 30 ML CUP PO PRN (14:39)
[2018-09-25] MEDS ORDERED: P-EPHED 60MG/TRIPROLIDI 2.5MG TABLET PO PRN (14:39)
[2018-09-25] MEDS ORDERED: guaiFENesin/D-METHORPHAN HB 10 ML UNIT-DOSE CUPS PO PRN (14:39)
[2018-09-25] MEDS ORDERED: METHADONE HCL 10 MG TABLET (FOR DETOX USE ONLY) PO ONE ×2 (16:45→23:00)
[2018-09-25] MEDS: diazePAM 5 MG TABLET PO PRN ×2 (17:45→22:31)
[2018-09-25] MEDS: THIAMINE HCL 100 MG TABLET (FP) PO SCH (22:30)
[2018-09-26] MEDS: diazePAM 5 MG TABLET PO PRN ×2 (02:28→22:06)
[2018-09-26] MEDS ORDERED: METHADONE HCL 10 MG TABLET (FOR DETOX USE ONLY) PO ONE (10:00)
[2018-09-26] MEDS: PRENATAL VITAMINS W/ FOLIC ACID TABLET (FP) PO SCH (10:11)
[2018-09-26 10:52] LABS: HEMATOCRIT 40.6 % (35.4-49); MCH 27.7 pg (25.7-33.7); MEAN CELL VOLUME 86.4 fl (80-96); MEAN PLT VOLUME 7.7 fl (7.5-11.1); PLATELET COUNT 253 K/MM3 (134-434); RDW 14.3 % (11.9-15.9)
[2018-09-26 11:10] LABS: ALBUMIN 2.8 g/dl (3.4-5.0); ALK PHOS 93 U/L (45-117); ANION GAP 5 MMOL/L (8-16); BILIRUBIN,TOTAL 0.3 mg/dL (0.2-1); BLOOD UREA NITROGEN 13 mg/dL (7-18); CALCIUM 8.4 mg/dL (8.5-10.1); CHLORIDE 106 mmol/L (98-107); CO2 28 mmol/L (21-32); GLUCOSE,RANDOM 86 mg/dL (74-106); POTASSIUM 4.1 mmol/L (3.5-5.1); SGOT/AST 16 U/L (15-37); SGPT/ALT 24 U/L (13-61); SODIUM 140 mmol/L (136-145); TOT PROT 5.8 g/dl (6.4-8.2)
--- NOTE | 2018-09-26 11:20 | PN ---
BHS COWS - Scale Resting Pulse: 0= [place] 80 or Below Sweatin= Chills/Flushing Restless Observation: 3= Extraneous Movement Pupil Size: 0= Normal to Room Light Bone or Joint Aches: 2= Severe Diffuse Aches Runny Nose/ Eye Tearin= None GI Upset > 30mins: 0= None Tremor Observation of Outstretched Hands: 1= Tremor [place], Not Seen Yawning Observation: 0= None Anxiety or Irritability: 2=Irritable/Anxious Goose Flesh Skin: 0=Smooth Skin COWS Score: 9 BHS Progress Note (SOAP) Subjective: PT C/O "UP ALL NIGHT", RESTLESSNESS, CHILLS,SWEATS. Objective: 09/26/18 11:19 Vital Signs 09/26/18 09/26/18 09/26/18 03:30 06:26 06:27 Temperature 97.5 F L Pulse Rate 59 L Respiratory 18 18 18 Rate Blood Pressure 99/66 09/26/18 09:37 Temperature 97.2 F L Pulse Rate 75 Respiratory 18 Rate Blood Pressure 109/60 Laboratory Tests 09/26/18 09/26/18 07:50 07:50 WBC 5.0 RBC 4.70 Hgb 13.0 Hct 40.6 MCV 86.4 MCH 27.7 MCHC 32.0 RDW 14.3 Plt Count 253 MPV 7.7 Sodium 140 Potassium 4.1 Chloride 106 Carbon Dioxide 28 Anion Gap 5 L BUN 13 Creatinine 1.0 Creat Clearance w eGFR > 60 Random Glucose 86 Calcium 8.4 L Total Bilirubin 0.3 AST 16 ALT 24 Alkaline Phosphatase 93 Total Protein 5.8 L Albumin 2.8 L Assessment: 09/26/18 11:20 WITHDRAWAL SX Plan: CONTINUE DETOX INCREASE PO FLUIDS
--- NOTE | 2018-09-26 17:33 | EKG ---
Test Reason : Blood Pressure : / mmHG Vent. Rate : 073 BPM Atrial Rate : 073 BPM P-R Int : 148 ms QRS Dur : 078 ms QT Int : 378 ms P-R-T Axes : 085 086 076 degrees QTc Int : 416 ms NORMAL SINUS RHYTHM RIGHT ATRIAL ENLARGEMENT MINIMAL VOLTAGE CRITERIA FOR LVH, MAY BE NORMAL VARIANT BORDERLINE ECG WHEN COMPARED WITH ECG OF 25-FEB-2018 17:26, NO SIGNIFICANT CHANGE WAS FOUND Confirmed by MD TYLER, KIRSTEN ([id number]) on 09/26/2018 5:32:39 PM Referred By: Confirmed By:KIRSTEN SCOTT MD
[2018-09-26] MEDS: THIAMINE HCL 100 MG TABLET (FP) PO SCH (22:06)
[2018-09-26] MEDS: MELATONIN 5 MG TABLETS PO PRN (22:06)
[2018-09-27] MEDS: diazePAM 5 MG TABLET PO PRN ×2 (08:33→22:13)
[2018-09-27] MEDS ORDERED: METHADONE HCL 5 MG TABLET (FOR DETOX USE ONLY) PO ONE (10:00)
[2018-09-27] MEDS: PRENATAL VITAMINS W/ FOLIC ACID TABLET (FP) PO SCH (10:19)
--- NOTE | 2018-09-27 13:49 | PN ---
BHS COWS - Scale Resting Pulse: 0= [place] 80 or Below Sweatin=Flushed/Facial Moisture Restless Observation: 3= Extraneous Movement Pupil Size: 0= Normal to Room Light Bone or Joint Aches: 2= Severe Diffuse Aches Runny Nose/ Eye Tearin= Runny Nose/Eyes GI Upset > 30mins: 3= Vomiting/Diarrhea Tremor Observation of Outstretched Hands: 2= Slight Tremor Visible Yawning Observation: 0= None Anxiety or Irritability: 2=Irritable/Anxious Goose Flesh Skin: 0=Smooth Skin COWS Score: 16 BHS Progress Note (SOAP) Subjective: Tremor, body aches, back pain, diarrhea, interrupted sleep Objective: 09/27/18 13:47 Last Vital Signs Temp Pulse Resp BP Pulse Ox 97.4 F L 80 18 125/69 09/27/18 13:18 09/27/18 13:18 09/27/18 13:18 09/27/18 13:18 Laboratory Tests 09/26/18 09/26/18 09/26/18 07:50 07:50 07:50 WBC 5.0 RBC 4.70 Hgb 13.0 Hct 40.6 MCV 86.4 MCH 27.7 MCHC 32.0 RDW 14.3 Plt Count 253 MPV 7.7 Sodium 140 Potassium 4.1 Chloride 106 Carbon Dioxide 28 Anion Gap 5 L BUN 13 Creatinine 1.0 Creat Clearance w eGFR > 60 Random Glucose 86 Calcium 8.4 L Total Bilirubin 0.3 AST 16 ALT 24 Alkaline Phosphatase 93 Total Protein 5.8 L Albumin 2.8 L RPR Titer Nonreactive Labs reviewed Assessment: 09/27/18 13:47 Withdrawal symptoms Plan: Continue detox Encouraged PO water intake Admission UA ordered
[2018-09-27] MEDS: THIAMINE HCL 100 MG TABLET (FP) PO SCH (22:13)
[2018-09-27] MEDS: MELATONIN 5 MG TABLETS PO PRN (22:13)
[2018-09-28 01:32] LABS: URINE APPEARANCE CLEAR; URINE BILIRUBIN NEGATIVE (<2.0 mg/dL); URINE COLOR LTYELLOW; URINE GLUCOSE (UA) NEGATIVE (NEGATIVE); URINE KETONE NEGATIVE (NEGATIVE); URINE LEUK ESTERASE NEGATIVE (NEGATIVE); URINE NITRITE NEGATIVE (NEGATIVE); URINE PROTEIN NEGATIVE (NEGATIVE); URINE UROBILINOGEN NEGATIVE mg/dL (0.2-1.0)
--- NOTE | 2018-09-28 09:51 | PN ---
BHS Progress Note (SOAP) Subjective: feeling better no body aches no gi distress Objective: 09/28/18 09:52 Vital Signs Temperature 98.6 F 09/28/18 09:20 Pulse Rate 71 09/28/18 09:20 Respiratory Rate 20 09/28/18 09:20 Blood Pressure 113/65 09/28/18 09:20 O2 Sat by Pulse Oximetry (%) Laboratory Last Values WBC 5.0 K/mm3 (4.0-10.0) 09/26/18 07:50 RBC 4.70 M/mm3 (4.00-5.60) 09/26/18 07:50 Hgb 13.0 GM/dL (11.7-16.9) 09/26/18 07:50 Hct 40.6 % (35.4-49) 09/26/18 07:50 MCV 86.4 fl (80-96) 09/26/18 07:50 MCH 27.7 pg (25.7-33.7) 09/26/18 07:50 MCHC 32.0 g/dl (32.0-35.9) 09/26/18 07:50 RDW 14.3 % (11.9-15.9) 09/26/18 07:50 Plt Count 253 K/MM3 (134-434) 09/26/18 07:50 MPV 7.7 fl (7.5-11.1) 09/26/18 07:50 Sodium 140 mmol/L (136-145) 09/26/18 07:50 Potassium 4.1 mmol/L (3.5-5.1) 09/26/18 07:50 Chloride 106 mmol/L (98-107) 09/26/18 07:50 Carbon Dioxide 28 mmol/L (21-32) 09/26/18 07:50 Anion Gap 5 MMOL/L (8-16) L 09/26/18 07:50 BUN 13 mg/dL (7-18) 09/26/18 07:50 Creatinine 1.0 mg/dL (0.55-1.3) 09/26/18 07:50 Creat Clearance w eGFR > 60 (>60) 09/26/18 07:50 Random Glucose 86 mg/dL (74-106) 09/26/18 07:50 Calcium 8.4 mg/dL (8.5-10.1) L 09/26/18 07:50 Total Bilirubin 0.3 mg/dL (0.2-1) 09/26/18 07:50 AST 16 U/L (15-37) 09/26/18 07:50 ALT 24 U/L (13-61) 09/26/18 07:50 Alkaline Phosphatase 93 U/L (45-117) 09/26/18 07:50 Total Protein 5.8 g/dl (6.4-8.2) L 09/26/18 07:50 Albumin 2.8 g/dl (3.4-5.0) L 09/26/18 07:50 Urine Color Ltyellow 09/28/18 00:05 Urine Appearance Clear 09/28/18 00:05 Urine pH 5.0 (5.0-8.0) 09/28/18 00:05 Ur Specific [place] 1.018 (1.010-1.035) 09/28/18 00:05 Urine Protein Negative (NEGATIVE) 09/28/18 00:05 Urine Glucose (UA) Negative (NEGATIVE) 09/28/18 00:05 Urine Ketones Negative (NEGATIVE) 09/28/18 00:05 Urine Blood Negative (NEGATIVE) 09/28/18 00:05 Urine Nitrite Negative (NEGATIVE) 09/28/18 00:05 Urine Bilirubin Negative (<2.0 mg/dL) 09/28/18 00:05 Urine Urobilinogen Negative mg/dL (0.2-1.0) 09/28/18 00:05 Ur Leukocyte Esterase Negative (NEGATIVE) 09/28/18 00:05 RPR Titer Nonreactive (NONREACTIVE) 09/26/18 07:50 lab noted Assessment: 09/28/18 10:01 withdrawal sx Plan: continue detox
[2018-09-28] MEDS ORDERED: METHADONE HCL 10 MG TABLET (FOR DETOX USE ONLY) PO ONE (10:00)
[2018-09-28] MEDS: PRENATAL VITAMINS W/ FOLIC ACID TABLET (FP) PO SCH (10:14)
[2018-09-28] MEDS ORDERED: BACLOFEN 10 MG TABLET (FP) PO ONE (10:20)
[2018-09-28] MEDS: MELATONIN 5 MG TABLETS PO PRN (22:14)
[2018-09-28] MEDS: BACLOFEN 10 MG TABLET (FP) PO SCH (22:14)
[2018-09-28] MEDS: THIAMINE HCL 100 MG TABLET (FP) PO SCH (22:14)
[2018-09-29] MEDS: BACLOFEN 10 MG TABLET (FP) PO SCH (05:11)
[2018-09-29] MEDS ORDERED: METHADONE HCL 5 MG TABLET (FOR DETOX USE ONLY) PO ONE (06:00)
[2018-09-29 06:15] VITALS: BP 119/67; PULSE 65; TEMP 97.9
--- NOTE | 2018-09-29 11:11 | DS ---
[facility] Detox Discharge Summary Admission Date: 09/25/18 Discharge Date: 09/29/18 - History Present History: Alcohol Dependence, Cocaine Dependence, Opioid Dependence - Physical Exam Results Vital Signs: Vital Signs Temperature 97.9 F 09/29/18 06:14 Pulse Rate 65 09/29/18 06:14 Respiratory Rate 16 09/29/18 06:14 Blood Pressure 119/67 09/29/18 06:14 O2 Sat by Pulse Oximetry (%) Pertinent Admission Physical Exam Findings: Pt was admitted for heroin withdrawal detox- pt completed detox protocol with methadone taper. Pt was also given Valium prn for alcohol withdrawal. pt to attend [facility] outpt - Treatment Hospital Course: Detox Protocol Followed, Detoxed Safely, Responded well, Discharged Condition Good - Medication Discharge Medications: Ambulatory Orders NK [No Known Home Medication] 02/25/18 - AMA Did Patient Leave Against Medical Advice: Yes
== END 2018-09-29 09:16 | disposition home or self-care (01) | DRG 773 ==
LOC: YASAS 13:01 → Y3N 16:25
PROC: HZ2ZZZZ Detoxification Services for Substance Abuse Treatment (ICD-10-PCS; principal; 2018-09-25)
DX: F11.23 Opioid dependence with withdrawal (principal); F10.230 Alcohol dependence with withdrawal, uncomplicated; F14.20 Cocaine dependence, uncomplicated; F17.213 Nicotine dependence, cigarettes, with withdrawal; F34.1 Dysthymic disorder; M54.9 Dorsalgia, unspecified; G89.29 Other chronic pain; Z59.0 Homelessness
CPT/HCPCS: 36415; 80053; 81003; 85027; 86593; 93005; 93010; J0475

== ENCOUNTER 2018-11-11 12:32 | Inpatient (IN) | payer OTHER ==
[2018-11-11 13:13] VITALS: BMI 21.9
--- NOTE | 2018-11-11 16:03 | HP ---
COWS - Scale Resting Pulse: 0= [place] 80 or Below Sweatin=Flushed/Facial Moisture Restless Observation: 1= Difficult to Sit Still Pupil Size: 1= Pupils >than Normal Bone or Joint Aches: 2= Severe Diffuse Aches Runny Nose/ Eye Tearin= Nasal Congestion GI Upset > 30mins: 2= Nausea/Diarrhea Tremor Observation: 2= Slight Tremor Visible Yawning Observation: 0= None Anxiety or Irritability: 2=Irritable/Anxious Goose Flesh Skin: 0=Smooth Skin COWS Score: 13 CIWA Score - Admission Criteria OASAS Guidelines: Admission for Medically Managed Detox: Requires at least one of the followin. CIWA greater than 12 2. Seizures within the past 24 hours 3. Delirium tremens within the past 24 hours 4. Hallucinations within the past 24 hours 5. Acute intervention needed for co occurring medical disorder 6. Acute intervention needed for co occurring psychiatric disorder 7. Severe withdrawal that cannot be handled at a lower level of care (continued vomiting, continued diarrhea, abnormal vital signs) requiring intravenous medication and/or fluids 8. Admission ROS S - HPI Chief Complaint: I need to stop using heroin and alcohol - I keep messing up when I use them. Allergies/Adverse Reactions: Allergies Allergy/AdvReac Type Severity Reaction Status Date / Time No Known Allergies Allergy Verified 11/11/18 14:26 History of Present Illness: 48 y/o m pt with longstanding h/o heroin dep and alcohol abuse seeking detox. Exam Limitations: No Limitations - Ebola screening Have you traveled outside of the country in the last 21 days: No Have you had contact with anyone from an Ebola affected area: No Have you been sick,other than usual withdrawal symptoms: No Do you have a fever: No - Review of Systems Constitutional: Unintentional Wgt. Loss EENT: reports: Nose Congestion Respiratory: reports: No Symptoms reported Cardiac: reports: No Symptoms Reported GI: reports: Nausea, Abdominal cramping : reports: No Symptoms Reported Musculoskeletal: reports: Back Pain Neuro: reports: Dizziness Endocrine: reports: No Symptoms Reported Hematology: reports: No Symptoms Reported Psychiatric: reports: Anxious Other Systems: Reviewed and Negative Patient History - Patient Medical History Hx Anemia: No Hx Asthma: No Hx Chronic Obstructive Pulmonary Disease (COPD): No Hx Cancer: No Hx Cardiac Disorders: No Hx Congestive Heart Failure: No Hx Hypertension: No Hx Hypercholesterolemia: No Hx Pacemaker: No HX Cerebrovascular Accident: No Hx Seizures: No Hx Diabetes: No Hx Gastrointestinal Disorders: No Hx Liver Disease: No Hx Genitourinary Disorders: No Hx Sexually Transmitted Disorders: No Hx Renal Disease (ESRD): No Hx Thyroid Disease: No Hx Human Immunodeficiency Virus (HIV): No Hx Hepatitis C: No Hx Depression: No Hx Suicide Attempt: No Hx Bipolar Disorder: No Hx Schizophrenia: No - Patient Surgical History Past Surgical History: No Hx Neurologic Surgery: No Hx Cataract Extraction: No Hx Cardiac Surgery: No Hx Lung Surgery: No Hx Breast Surgery: No Hx Breast Biopsy: No Hx Abdominal Surgery: No Hx Appendectomy: No Hx Cholecystectomy: No Hx Genitourinary Surgery: No Hx Section: No Hx Orthopedic Surgery: No Anesthesia Reaction: No - PPD History Previous Implant?: Yes Documented Results: Negative w/proof Implanted On Prior [facility] Admission?: Yes Date: 01/19/18 Results: 0 mm - Reproductive History Patient is a Female of Child Bearing Age (11 -55 yrs old): No - Smoking Cessation Smoking history: Current every day smoker Have you smoked in the past 12 months: Yes Aproximately how many cigarettes per day: 20 Cigars Per Day: 0 Hx Chewing Tobacco Use: No Initiated information on smoking cessation: Yes 'Breaking Loose' booklet given: 11/11/18 - Substance & Tx. History Hx Alcohol Use: Yes Hx Substance Use: Yes Substance Use Type: Alcohol, Heroin Hx Substance Use Treatment: Yes - Substances Abused Heroin Route: Inhalation Frequency: Daily Amount used: 7 bags Age of first use: 21 Date of Last Use: 11/10/18 Alcohol-beer Route: Oral Frequency: 3-6 times per week Amount used: 1-6 pk, Age of first use: 18 Date of Last Use: 11/10/18 Alcohol Route: Oral Frequency: 3-6 times per week Amount used: 1 -6 pk/day Age of first use: 18 Date of Last Use: 11/10/18 Family Disease History - Family Disease History Family Disease History: Other: Father (living,healthy), Mother (living, healthy) , Brother (four - living - healthy), Sister (three - living - healthy), Son ( three - adult - healthy), Daughter (three - adult -healthy) Admission Physical Exam BHS - Vital Signs Vital Signs: Vital Signs - 24 hr 11/11/18 13:12 Temperature 98.5 F Pulse Rate 75 Respiratory 20 Rate Blood Pressure 113/66 - Physical General Appearance: Yes: Disheveled, Thin, Tremorous, Irritable, Anxious HEENTM: Yes: EOMI, Hearing grossly Normal, Normal Voice, IAN, Nasal Congestion , Other (swelling of left upper lip with abrasion) Respiratory: Yes: Chest Non-Tender, Lungs Clear, Normal Breath Sounds, No Respiratory Distress Neck: Yes: Supple, Trachea in good position Breast: Yes: Within Normal Limits Cardiology: Yes: Regular Rhythm, Regular Rate, S1, S2 Abdominal: Yes: Flat, Soft, Increased Bowel Sounds Genitourinary: Yes: Within Normal Limits Back: Yes: Decreased Range of Motion Musculoskeletal: Yes: Back pain Extremities: Yes: Tremors Neurological: Yes: market research specialist II-XII NML intact, Fully Oriented, Alert, Motor Strength 5/5 Integumentary: Yes: Moist Lymphatic: Yes: Within Normal Limits - Diagnostic (1) Alcohol abuse Current Visit: Yes Status: Chronic (2) Opioid dependence with uncomplicated intoxication Current Visit: Yes Status: Chronic (3) Cocaine dependence Current Visit: Yes Status: Chronic Qualifiers: Substance use status: uncomplicated Qualified Code(s): F14.20 - Cocaine dependence, uncomplicated (4) Depression (emotion) Current Visit: Yes Status: Chronic Qualifiers: Depression Type: dysthymia Qualified Code(s): F34.1 - Dysthymic disorder (5) Nicotine dependence Current Visit: Yes Status: Chronic Qualifiers: Nicotine product type: cigarettes Substance use status: in withdrawal Qualified Code(s): F17.213 - Nicotine dependence, cigarettes, with withdrawal Cleared for Admission [facility] - Detox or Rehab [facility] Level of Care: Medically Managed Detox Regimen/Protocol: Methadone [facility] Breath Alcohol Content Breath Alcohol Content: 0 Urine Drug Screen - Results Drug Screen Negative: No Urine Drug Screen Results: SUPRIYA-Cocaine, OPI-Opiates
[2018-11-11] MEDS ORDERED: LOPERAMIDE HCL 2 MG CAPSULE PO PRN (16:22)
[2018-11-11] MEDS ORDERED: MAG HYDROX/AL HYDROX/SIMETH 30 ML UNIT-DOSE CUP PO PRN (16:22)
[2018-11-11] MEDS ORDERED: NICOTINE POLACRILEX 4 MG GUM BC PRN (16:22)
[2018-11-11] MEDS ORDERED: hydrOXYzine PAMOATE 25 MG CAPSULE (FP) PO PRN (16:22)
[2018-11-11] MEDS ORDERED: MAGNESIUM CITRATE 300 ML BOTTLE PO PRN (16:22)
[2018-11-11] MEDS ORDERED: guaiFENesin/D-METHORPHAN HB 10 ML UNIT-DOSE CUPS PO PRN (16:22)
[2018-11-11] MEDS ORDERED: MENTHOL/PHENOL 1 EACH UD MM PRN (16:22)
[2018-11-11] MEDS ORDERED: P-EPHED 60MG/TRIPROLIDI 2.5MG TABLET PO PRN (16:22)
[2018-11-11] MEDS ORDERED: ACETAMINOPHEN 325 MG TABLET (FP) PO PRN (16:22)
[2018-11-11] MEDS ORDERED: MAGNESIUM HYDROX 2400MG/30ML ORAL SUSPENSION 30 ML CUP PO PRN (16:22)
[2018-11-11] MEDS ORDERED: METHADONE HCL 10 MG TABLET (FOR DETOX USE ONLY) PO ONE ×2 (16:45→23:00)
[2018-11-11] MEDS: IBUPROFEN 400 MG TABLET (FP) PO PRN (18:00)
[2018-11-11] MEDS: diazePAM 5 MG TABLET PO PRN (19:45)
[2018-11-11] MEDS: THIAMINE HCL 100 MG TABLET (FP) PO SCH (22:20)
[2018-11-11] MEDS: BACITRACIN 0.9 GM PACKET TP SCH (22:22)
[2018-11-12] MEDS: diazePAM 5 MG TABLET PO PRN ×2 (02:35→23:43)
[2018-11-12] MEDS ORDERED: METHADONE HCL 10 MG TABLET (FOR DETOX USE ONLY) PO ONE (10:00)
[2018-11-12] MEDS: BACITRACIN 0.9 GM PACKET TP SCH ×2 (10:12→22:32)
[2018-11-12] MEDS: PRENATAL VITAMINS W/ FOLIC ACID TABLET (FP) PO SCH (10:12)
[2018-11-12] MEDS: NICOTINE 21 MG/24 HOURS TOPICAL PATCH TD SCH (10:13)
[2018-11-12 10:15] LABS: HEMATOCRIT 39.3 % (35.4-49); HEMOGLOBIN 13.5 GM/dL (11.7-16.9); MCH 29.6 pg (25.7-33.7); MCHC 34.3 g/dl (32.0-35.9); MEAN CELL VOLUME 86.4 fl (80-96); MEAN PLT VOLUME 8.3 fl (7.5-11.1); PLATELET COUNT 413 K/MM3 (134-434); RBC 4.55 M/mm3 (4.00-5.60); RDW 13.9 % (11.9-15.9)
[2018-11-12 10:40] LABS: ALBUMIN 3.3 g/dl (3.4-5.0); ALK PHOS 98 U/L (45-117); ANION GAP 7 MMOL/L (8-16); BILIRUBIN,TOTAL 0.4 mg/dL (0.2-1); BLOOD UREA NITROGEN 18 mg/dL (7-18); CALCIUM 8.6 mg/dL (8.5-10.1); CHLORIDE 106 mmol/L (98-107); CO2 28 mmol/L (21-32); CREATININE 1.2 mg/dL (0.55-1.3); GLUCOSE,RANDOM 117 mg/dL (74-106); POTASSIUM 4.6 mmol/L (3.5-5.1); SGOT/AST 23 U/L (15-37); SGPT/ALT 31 U/L (13-61); SODIUM 141 mmol/L (136-145); TOT PROT 6.8 g/dl (6.4-8.2)
[2018-11-12] MEDS: IBUPROFEN 400 MG TABLET (FP) PO PRN ×2 (11:40→17:45)
--- NOTE | 2018-11-12 11:59 | EKG ---
Test Reason : Blood Pressure : / mmHG Vent. Rate : 072 BPM Atrial Rate : 072 BPM P-R Int : 158 ms QRS Dur : 080 ms QT Int : 398 ms P-R-T Axes : 082 079 062 degrees QTc Int : 435 ms NORMAL SINUS RHYTHM ST ELEVATION, CONSIDER EARLY REPOLARIZATION BORDERLINE ECG WHEN COMPARED WITH ECG OF 25-SEP-2018 17:10, NO SIGNIFICANT CHANGE WAS FOUND Confirmed by CECY HURTADO, BOB ([id number]) on 11/12/2018 11:59:24 AM Referred By: Confirmed By:BOB SAM MD
--- NOTE | 2018-11-12 15:34 | PN ---
BHS COWS - Scale Resting Pulse: 2= [place] 101-120 Sweatin= Chills/Flushing Restless Observation: 1= Difficult to Sit Still Pupil Size: 0= Normal to Room Light Bone or Joint Aches: 0= None Runny Nose/ Eye Tearin= Nasal Congestion GI Upset > 30mins: 1= Stomach Cramp Tremor Observation of Outstretched Hands: 0= None Yawning Observation: 1= 1-2x During Session Anxiety or Irritability: 2=Irritable/Anxious Goose Flesh Skin: 3=Piloerection COWS Score: 12 BHS Progress Note (SOAP) Subjective: Sweating, Interrupted Sleep, Stomach Cramping, Nasal Congestion. Objective: PATIENT A & O X 3, OBSERVED AMBULATING ON UNIT. IN NO ACUTE DISTRESS. 11/12/18 15:30 Vital Signs Temperature 97.3 F L 11/12/18 13:55 Pulse Rate 74 11/12/18 13:55 Respiratory Rate 18 11/12/18 13:55 Blood Pressure 115/62 11/12/18 13:55 O2 Sat by Pulse Oximetry (%) Laboratory Tests 11/12/18 11/12/18 05:50 05:50 WBC 5.0 RBC 4.55 Hgb 13.5 Hct 39.3 MCV 86.4 MCH 29.6 MCHC 34.3 RDW 13.9 Plt Count 413 D MPV 8.3 Sodium 141 Potassium 4.6 Chloride 106 Carbon Dioxide 28 Anion Gap 7 L BUN 18 Creatinine 1.2 Creat Clearance w eGFR > 60 Random Glucose 117 H Calcium 8.6 Total Bilirubin 0.4 AST 23 ALT 31 Alkaline Phosphatase 98 Total Protein 6.8 Albumin 3.3 L LABS NOTED. RPR RESULT PENDING. 11/12/18 15:33 Assessment: 11/12/18 15:30 WITHDRAWAL SYMPTOMS. Plan: CONTINUE DETOX. INCREASE DAILY PO FLUID INTAKE. PRN ACTIFED FOR NASAL CONGESTION.
[2018-11-12] MEDS: THIAMINE HCL 100 MG TABLET (FP) PO SCH (22:32)
[2018-11-12] MEDS: MELATONIN 5 MG TABLETS PO PRN (23:43)
[2018-11-13] MEDS ORDERED: METHADONE HCL 5 MG TABLET (FOR DETOX USE ONLY) PO ONE (10:00)
[2018-11-13] MEDS: PRENATAL VITAMINS W/ FOLIC ACID TABLET (FP) PO SCH (10:41)
[2018-11-13] MEDS: BACITRACIN 0.9 GM PACKET TP SCH ×2 (10:41→21:12)
[2018-11-13] MEDS: NICOTINE 21 MG/24 HOURS TOPICAL PATCH TD SCH (10:41)
[2018-11-13] MEDS: IBUPROFEN 400 MG TABLET (FP) PO PRN (10:44)
--- NOTE | 2018-11-13 11:59 | PN ---
BHS COWS - Scale Resting Pulse: 0= [place] 80 or Below Sweatin=Flushed/Facial Moisture Restless Observation: 1= Difficult to Sit Still Pupil Size: 0= Normal to Room Light Bone or Joint Aches: 1= Mild Discomfort Runny Nose/ Eye Tearin= Nasal Congestion GI Upset > 30mins: 1= Stomach Cramp Tremor Observation of Outstretched Hands: 2= Slight Tremor Visible Yawning Observation: 2= >3x During Session Anxiety or Irritability: 2=Irritable/Anxious Goose Flesh Skin: 0=Smooth Skin COWS Score: 12 BHS Progress Note (SOAP) Subjective: sweats shakes interrupted sleep body aches agitation Objective: 11/13/18 11:58 Vital Signs Temperature 98.2 F 11/13/18 09:56 Pulse Rate 80 11/13/18 09:56 Respiratory Rate 18 11/13/18 09:56 Blood Pressure 145/85 11/13/18 09:56 O2 Sat by Pulse Oximetry (%) Laboratory Tests 11/12/18 11/12/18 05:50 05:50 WBC 5.0 RBC 4.55 Hgb 13.5 Hct 39.3 MCV 86.4 MCH 29.6 MCHC 34.3 RDW 13.9 Plt Count 413 D MPV 8.3 Sodium 141 Potassium 4.6 Chloride 106 Carbon Dioxide 28 Anion Gap 7 L BUN 18 Creatinine 1.2 Creat Clearance w eGFR > 60 Random Glucose 117 H Calcium 8.6 Total Bilirubin 0.4 AST 23 ALT 31 Alkaline Phosphatase 98 Total Protein 6.8 Albumin 3.3 L aaox3 ambulating no acute distress Assessment: 11/13/18 11:59 withdrawal sx Plan: continue detox increase fluids
[2018-11-13] MEDS ORDERED: CYCLOBENZAPRINE HCL 5 MG TABLET PO PRN (20:51)
[2018-11-13] MEDS: MELATONIN 5 MG TABLETS PO PRN (21:13)
[2018-11-13] MEDS: THIAMINE HCL 100 MG TABLET (FP) PO SCH (21:13)
[2018-11-14] MEDS ORDERED: METHADONE HCL 5 MG TABLET (FOR DETOX USE ONLY) PO ONE (10:00)
[2018-11-14] MEDS: PRENATAL VITAMINS W/ FOLIC ACID TABLET (FP) PO SCH (10:07)
[2018-11-14] MEDS: NICOTINE 21 MG/24 HOURS TOPICAL PATCH TD SCH (10:07)
[2018-11-14] MEDS: BACITRACIN 0.9 GM PACKET TP SCH (10:07)
--- NOTE | 2018-11-14 12:03 | PN ---
BHS Progress Note (SOAP) Subjective: Lip pain, interrupted sleep and malaise Objective: 11/14/18 11:57 Vital Signs - 8 hr 11/14/18 11/14/18 08:21 09:47 Temperature 98.1 F 98.2 F Pulse Rate 71 87 Respiratory 18 18 Rate Blood Pressure 132/73 123/65 Laboratory Last Values WBC 5.0 K/mm3 (4.0-10.0) 11/12/18 05:50 RBC 4.55 M/mm3 (4.00-5.60) 11/12/18 05:50 Hgb 13.5 GM/dL (11.7-16.9) 11/12/18 05:50 Hct 39.3 % (35.4-49) 11/12/18 05:50 MCV 86.4 fl (80-96) 11/12/18 05:50 MCH 29.6 pg (25.7-33.7) 11/12/18 05:50 MCHC 34.3 g/dl (32.0-35.9) 11/12/18 05:50 RDW 13.9 % (11.9-15.9) 11/12/18 05:50 Plt Count 413 K/MM3 (134-434) D 11/12/18 05:50 MPV 8.3 fl (7.5-11.1) 11/12/18 05:50 Sodium 141 mmol/L (136-145) 11/12/18 05:50 Potassium 4.6 mmol/L (3.5-5.1) 11/12/18 05:50 Chloride 106 mmol/L (98-107) 11/12/18 05:50 Carbon Dioxide 28 mmol/L (21-32) 11/12/18 05:50 Anion Gap 7 MMOL/L (8-16) L 11/12/18 05:50 BUN 18 mg/dL (7-18) 11/12/18 05:50 Creatinine 1.2 mg/dL (0.55-1.3) 11/12/18 05:50 Creat Clearance w eGFR > 60 (>60) 11/12/18 05:50 Random Glucose 117 mg/dL (74-106) H 11/12/18 05:50 Calcium 8.6 mg/dL (8.5-10.1) 11/12/18 05:50 Total Bilirubin 0.4 mg/dL (0.2-1) 11/12/18 05:50 AST 23 U/L (15-37) 11/12/18 05:50 ALT 31 U/L (13-61) 11/12/18 05:50 Alkaline Phosphatase 98 U/L (45-117) 11/12/18 05:50 Total Protein 6.8 g/dl (6.4-8.2) 11/12/18 05:50 Albumin 3.3 g/dl (3.4-5.0) L 11/12/18 05:50 RPR Titer Nonreactive (NONREACTIVE) 11/12/18 05:50 Labs noted, no panic values Mild lip swelling Assessment: 11/14/18 12:03 Withdrawal sx Canker sore Plan: Continue detox
[2018-11-14 13:22] VITALS: BP 134/76; PULSE 84; TEMP 99.5
--- NOTE | 2018-11-14 17:11 | DS ---
[facility] Detox Discharge Summary Admission Date: 11/11/18 Discharge Date: 11/14/18 - History Present History: Alcohol Dependence, Opioid Dependence Pertinent Past History: pt left AMA b/c of the weather- snow later today. - Physical Exam Results Vital Signs: Vital Signs Temperature 99.5 F 11/14/18 13:21 Pulse Rate 84 11/14/18 13:21 Respiratory Rate 16 11/14/18 13:21 Blood Pressure 134/76 11/14/18 13:21 O2 Sat by Pulse Oximetry (%) - Treatment Hospital Course: Detox Protocol Followed - Medication Discharge Medications: Ambulatory Orders NK [No Known Home Medication] 02/25/18 - AMA Did Patient Leave Against Medical Advice: Yes
[2018-11-15] MEDS ORDERED: METHADONE HCL 10 MG TABLET (FOR DETOX USE ONLY) PO ONE (10:00)
[2018-11-16] MEDS ORDERED: METHADONE HCL 5 MG TABLET (FOR DETOX USE ONLY) PO ONE (06:00)
== END 2018-11-14 17:00 | disposition left against medical advice (07) | DRG 770 ==
LOC: YASAS 12:32 → Y6N 16:32
PROVIDERS: ADMIT Neuromusculoskeletal Medicine & OMM; ATTEND Neuromusculoskeletal Medicine & OMM
PROC: HZ2ZZZZ Detoxification Services for Substance Abuse Treatment (ICD-10-PCS; principal; 2018-11-11)
DX: F11.23 Opioid dependence with withdrawal (principal); F10.230 Alcohol dependence with withdrawal, uncomplicated; F14.20 Cocaine dependence, uncomplicated; F17.213 Nicotine dependence, cigarettes, with withdrawal; F34.1 Dysthymic disorder; K12.0 Recurrent oral aphthae; M54.5 Low back pain; G89.29 Other chronic pain; Z59.0 Homelessness
CPT/HCPCS: 36415; 80053; 85027; 86593; 93005; 93010

== ENCOUNTER 2019-02-05 13:51 | Inpatient (IN) | payer OTHER ==
[2019-02-05 15:01] VITALS: BMI 23.1
--- NOTE | 2019-02-05 16:30 | HP ---
COWS - Scale Resting Pulse: 0= [place] 80 or Below Sweatin= Chills/Flushing Restless Observation: 3= Extraneous Movement Pupil Size: 0= Normal to Room Light Bone or Joint Aches: 2= Severe Diffuse Aches Runny Nose/ Eye Tearin= Runny Nose/Eyes GI Upset > 30mins: 2= Nausea/Diarrhea Tremor Observation: 0= None Yawning Observation: 0= None Anxiety or Irritability: 2=Irritable/Anxious Goose Flesh Skin: 0=Smooth Skin COWS Score: 12 CIWA Score Nausea/Vomitin Muscle Tremors: None Anxiety: 4-Mod. Anxious/Guarded Agitation: 1-Slight > Activity Paroxysmal Sweats: 3 Orientation: 0-Oriented Tacttile Disturbances: 0-None Auditory Disturbances: 1-Very Mild Visual Disturbances: 2-Mild Sensitivity Headache: 0-None Present CIWA-Ar Total Score: 14 - Admission Criteria OASAS Guidelines: Admission for Medically Managed Detox: Requires at least one of the followin. CIWA greater than 12 2. Seizures within the past 24 hours 3. Delirium tremens within the past 24 hours 4. Hallucinations within the past 24 hours 5. Acute intervention needed for co occurring medical disorder 6. Acute intervention needed for co occurring psychiatric disorder 7. Severe withdrawal that cannot be handled at a lower level of care (continued vomiting, continued diarrhea, abnormal vital signs) requiring intravenous medication and/or fluids 8. Admission ROS [facility] Allergies/Adverse Reactions: Allergies Allergy/AdvReac Type Severity Reaction Status Date / Time fish derived Allergy Verified 02/05/19 14:56 History of Present Illness: PATIENT HERE REQUESTING DETOX FROM HEROIN USE, REPORTS 7 BAGS/DAY DENIES IVDU , USE REPORTED X 20 YEARS ,LATEST USE WAS THE DAY BEFORE YESTERDAY, CURRENT SYMPTOMS ABOVE , REPORTS INTERMITTENT PERIODS OF SOBRIETY , LONGEST A FEW MONTHS , DETOX X 5 MOST RECENTLY october 2018 at this facility / etoh USE - REPORTS 6 -PK/DAY X MANY YEARS, DENIES SEIZURES, BLACKOUTS, FALLS , LATEST USE day before YESTERDAY . UTOX + SUPRIYA, OPI COCAINE : 1 BAG /DAY TOBACCO : 1 PPD X 30 YEARS BAC0.000 PMHX:CHRONIC BACK PAIN PSHX : DENIES PSYCH : DENIES MEDS : DENIES HOMELESS , UNEMPLOYED Exam Limitations: No Limitations - Ebola screening Have you traveled outside of the country in the last 21 days: No (N) Have you had contact with anyone from an Ebola affected area: No Do you have a fever: No - Review of Systems Constitutional: See HPI EENT: reports: See HPI Respiratory: reports: No Symptoms reported Cardiac: reports: No Symptoms Reported GI: reports: See HPI : reports: No Symptoms Reported Musculoskeletal: reports: See HPI Integumentary: reports: No Symptoms Reported Neuro: reports: See HPI Endocrine: reports: No Symptoms Reported Psychiatric: reports: Orientated x3, Agitated, Anxious Patient History - Patient Medical History Hx Anemia: No Hx Asthma: No Hx Chronic Obstructive Pulmonary Disease (COPD): No Hx Cancer: No Hx Cardiac Disorders: No Hx Congestive Heart Failure: No Hx Hypertension: No Hx Hypercholesterolemia: No Hx Pacemaker: No HX Cerebrovascular Accident: No Hx Seizures: No Hx Diabetes: No Hx Gastrointestinal Disorders: No Hx Liver Disease: No Hx Genitourinary Disorders: No Hx Sexually Transmitted Disorders: No Hx Renal Disease (ESRD): No Hx Thyroid Disease: No Hx Human Immunodeficiency Virus (HIV): No Hx Hepatitis C: No Hx Depression: No Hx Suicide Attempt: No Hx Bipolar Disorder: No Hx Schizophrenia: No - Patient Surgical History Past Surgical History: No Hx Neurologic Surgery: No Hx Cataract Extraction: No Hx Cardiac Surgery: No Hx Lung Surgery: No Hx Breast Surgery: No Hx Breast Biopsy: No Hx Abdominal Surgery: No Hx Appendectomy: No Hx Cholecystectomy: No Hx Genitourinary Surgery: No Hx Section: No Hx Orthopedic Surgery: No Anesthesia Reaction: No - PPD History Date: 01/19/18 Results: 0 mm - Smoking Cessation Smoking history: Current every day smoker Have you smoked in the past 12 months: Yes Aproximately how many cigarettes per day: 20 Cigars Per Day: 0 Hx Chewing Tobacco Use: No Initiated information on smoking cessation: No - Substances abused Heroin Substance route: Inhalation Frequency: Daily Amount used: 7 bags Age of first use: 19 Date of last use: 02/04/19 Family Disease History - Family Disease History Family Disease History: Other: Father (living,healthy), Mother (living, healthy) , Brother (four - living - healthy), Sister (three - living - healthy), Son ( three - adult - healthy), Daughter (three - adult -healthy) Admission Physical Exam [facility] - Vital Signs Vital Signs: Vital Signs - 24 hr 02/05/19 14:52 Temperature 98.1 F Pulse Rate 72 Respiratory 18 Rate Blood Pressure 113/72 - Physical General Appearance: Yes: Disheveled, Irritable, Anxious, Other (sleeping , awakened by verbal stimuli after several attempts) HEENTM: Yes: EOMI, Hearing grossly Normal, Normocephalic, Normal Voice, Nasal Congestion, Rhinorrhea, Other (poor dentition , many missing teeth) Respiratory: Yes: Chest Non-Tender, Lungs Clear, Decreased Breath Sounds Neck: Yes: No masses,lesions,Nodules, Trachea in good position Cardiology: Yes: Regular Rhythm, Regular Rate, S1, S2 Abdominal: Yes: Non Tender, Soft Back: Yes: Normal Inspection Musculoskeletal: Yes: full range of Motion Extremities: Yes: Normal Range of Motion, Non-Tender Neurological: Yes: Fully Oriented, Alert, Motor Strength 5/5 Integumentary: Yes: Normal Color, Warm - Diagnostic (1) Alcohol dependence with uncomplicated withdrawal Current Visit: Yes Status: Acute (2) Opioid dependence with uncomplicated intoxication Current Visit: Yes Status: Acute (3) Cocaine dependence Current Visit: Yes Status: Chronic Qualifiers: Substance use status: uncomplicated Qualified Code(s): F14.20 - Cocaine dependence, uncomplicated (4) Nicotine dependence Current Visit: Yes Status: Chronic Qualifiers: Nicotine product type: cigarettes Breathalyzer - Breathalyzer Breathalyzer: 0 Urine Drug Screen - Test Device Lot number: [id number] Expiration date: 09/25/20 - Control Is test valid?: Yes - Results Drug screen NEGATIVE: No Urine drug screen results: SUPRIYA-Cocaine, MOP-Opiates Inpatient Rehab Admission - Rehab Decision to Admit Inpatient rehab admission?: No
[2019-02-05] MEDS ORDERED: cloNIDine HCL 0.1 MG TABLET PO PRN (16:35)
[2019-02-05] MEDS ORDERED: MAG HYDROX/AL HYDROX/SIMETH 30 ML UNIT-DOSE CUP PO PRN (16:35)
[2019-02-05] MEDS ORDERED: chlordiazePOXIDE HCL 10 MG CAPSULE PO PRN (16:35)
[2019-02-05] MEDS ORDERED: MAGNESIUM CITRATE 300 ML BOTTLE PO PRN (16:35)
[2019-02-05] MEDS ORDERED: NICOTINE POLACRILEX 2 MG GUM BUC PRN (16:35)
[2019-02-05] MEDS ORDERED: METHOCARBAMOL 500 MG TABLET PO PRN (16:35)
[2019-02-05] MEDS ORDERED: ACETAMINOPHEN 325 MG TABLET (FP) PO PRN ×2 (16:35)
[2019-02-05] MEDS ORDERED: BISMUTH SUBSALICYLATE 524 MG/30 ML UD PO PRN (16:35)
[2019-02-05] MEDS ORDERED: MELATONIN 5 MG TABLETS PO PRN (16:35)
[2019-02-05] MEDS ORDERED: IBUPROFEN 400 MG TABLET (FP) PO PRN (16:35)
[2019-02-05] MEDS ORDERED: MENTHOL/PHENOL 1 EACH UD MM PRN (16:35)
[2019-02-05] MEDS ORDERED: MAGNESIUM HYDROX 2400MG/30ML ORAL SUSPENSION 30 ML CUP PO PRN (16:35)
--- NOTE | 2019-02-05 19:16 | PN ---
[facility] Progress Note Note: EKG reviewed. No significant changes from 03/15- EKG.
[2019-02-05] MEDS: THIAMINE HCL 100 MG TABLET (FP) PO SCH (22:29)
[2019-02-05] MEDS: chlordiazePOXIDE HCL 25 MG CAPSULE PO SCH (22:31)
[2019-02-05] MEDS ORDERED: METHADONE HCL 10 MG TABLET (FOR DETOX USE ONLY) PO ONE (23:00)
[2019-02-06] MEDS: chlordiazePOXIDE HCL 25 MG CAPSULE PO SCH ×2 (05:44→12:46)
[2019-02-06] MEDS ORDERED: METHADONE HCL 5 MG TABLET (FOR DETOX USE ONLY) PO ONE (10:00)
[2019-02-06] MEDS: PRENATAL VITAMINS W/ FOLIC ACID TABLET (FP) PO SCH (10:02)
--- NOTE | 2019-02-06 10:43 | PN ---
[facility] CIWA - CIWA Score Nausea/Vomitin Muscle Tremors: 2 Anxiety: 2 Agitation: 2 Paroxysmal Sweats: 2 Orientation: 0-Oriented Tacttile Disturbances: 1-Very Mild Itch/Numbness Auditory Disturbances: 0-None Visual Disturbances: 0-None Headache: 2-Mild CIWA-Ar Total Score: 14 S COWS - Scale Resting Pulse: 0= [place] 80 or Below Sweatin= Chills/Flushing Restless Observation: 1= Difficult to Sit Still Pupil Size: 0= Normal to Room Light Bone or Joint Aches: 2= Severe Diffuse Aches Runny Nose/ Eye Tearin= Nasal Congestion GI Upset > 30mins: 2= Nausea/Diarrhea Tremor Observation of Outstretched Hands: 2= Slight Tremor Visible Yawning Observation: 0= None Anxiety or Irritability: 2=Irritable/Anxious Goose Flesh Skin: 0=Smooth Skin COWS Score: 11 [facility] Progress Note (SOAP) Subjective: Nausea, sweats, low back pain and interrupted sleep Objective: 02/06/19 10:42 Vital Signs 02/06/19 02/06/19 03:30 06:29 Temperature 98.1 F Pulse Rate 67 Respiratory 18 18 Rate Blood Pressure 106/66 Labs pending Assessment: 02/06/19 10:42 Withdrawal sx Plan: Continue detox
[2019-02-06 11:02] LABS: ALBUMIN 3.1 g/dl (3.4-5.0); ALK PHOS 92 U/L (45-117); ANION GAP 4 MMOL/L (8-16); BILIRUBIN,TOTAL 0.3 mg/dL (0.2-1); BLOOD UREA NITROGEN 11 mg/dL (7-18); CALCIUM 8.4 mg/dL (8.5-10.1); CHLORIDE 108 mmol/L (98-107); CO2 29 mmol/L (21-32); CREATININE 1.1 mg/dL (0.55-1.3); GLUCOSE,RANDOM 74 mg/dL (74-106); POTASSIUM 4.4 mmol/L (3.5-5.1); SGOT/AST 25 U/L (15-37); SGPT/ALT 40 U/L (13-61); SODIUM 141 mmol/L (136-145); TOT PROT 6.1 g/dl (6.4-8.2)
[2019-02-06 11:04] LABS: HEMATOCRIT 42.4 % (35.4-49); HEMOGLOBIN 13.9 GM/dL (11.7-16.9); MCH 28.3 pg (25.7-33.7); MCHC 32.9 g/dl (32.0-35.9); MEAN CELL VOLUME 85.9 fl (80-96); MEAN PLT VOLUME 7.7 fl (7.5-11.1); PLATELET COUNT 333 K/MM3 (134-434); RBC 4.93 M/mm3 (4.00-5.60); RDW 13.8 % (11.9-15.9); WHITE BLOOD COUNT 5.1 K/mm3 (4.0-10.0)
[2019-02-06] MEDS: chlordiazePOXIDE 5 MG CAPSULE PO SCH (22:15)
[2019-02-06] MEDS: THIAMINE HCL 100 MG TABLET (FP) PO SCH (22:15)
[2019-02-07] MEDS: chlordiazePOXIDE 5 MG CAPSULE PO SCH ×2 (05:46→13:16)
[2019-02-07] MEDS ORDERED: guaiFENesin 200 MG/10 ML 10 ML UNIT-DOSE CUPS PO PRN (09:55)
[2019-02-07] MEDS ORDERED: METHADONE HCL 10 MG TABLET (FOR DETOX USE ONLY) PO ONE (10:00)
[2019-02-07] MEDS: LIDOCAINE 5% TOPICAL PATCH TP SCH (10:22)
[2019-02-07] MEDS: PRENATAL VITAMINS W/ FOLIC ACID TABLET (FP) PO SCH (10:22)
--- NOTE | 2019-02-07 11:59 | PN ---
S CIWA - CIWA Score Nausea/Vomitin-No Nausea/No Vomiting Muscle Tremors: None Anxiety: 2 Agitation: 2 Paroxysmal Sweats: No Perspiration Orientation: 0-Oriented Tacttile Disturbances: 0-None Auditory Disturbances: 0-None Visual Disturbances: 0-None Headache: 0-None Present CIWA-Ar Total Score: 4 [facility] COWS - Scale Resting Pulse: 0= [place] 80 or Below Sweatin= No chills or Flushing Restless Observation: 1= Difficult to Sit Still Pupil Size: 0= Normal to Room Light Bone or Joint Aches: 2= Severe Diffuse Aches Runny Nose/ Eye Tearin= Runny Nose/Eyes GI Upset > 30mins: 0= None Tremor Observation of Outstretched Hands: 0= None Yawning Observation: 0= None Anxiety or Irritability: 2=Irritable/Anxious Goose Flesh Skin: 0=Smooth Skin COWS Score: 7 [facility] Progress Note (SOAP) Subjective: PATIENT C/O DRY COUGH, LEFT HIP PAIN AND BODY ACHES, ANXIETY AND MILD RESTLESSNESS. Objective: 02/07/19 11:56 Laboratory Tests 02/06/19 02/06/19 02/06/19 07:30 07:30 07:30 WBC 5.1 RBC 4.93 Hgb 13.9 Hct 42.4 MCV 85.9 MCH 28.3 MCHC 32.9 RDW 13.8 Plt Count 333 MPV 7.7 Sodium 141 Potassium 4.4 Chloride 108 H Carbon Dioxide 29 Anion Gap 4 L BUN 11 Creatinine 1.1 Creat Clearance w eGFR 71.45 Random Glucose 74 Calcium 8.4 L Total Bilirubin 0.3 AST 25 ALT 40 Alkaline Phosphatase 92 Total Protein 6.1 L Albumin 3.1 L RPR Titer Nonreactive Vital Signs Temperature 98.2 F 02/07/19 09:24 Pulse Rate 102 H 02/07/19 09:24 Respiratory Rate 18 02/07/19 09:24 Blood Pressure 125/85 02/07/19 09:24 O2 Sat by Pulse Oximetry (%) PE: ALERT AND ORIENTED X 3 SKIN WARM AND DRY CAR S1S2 RESP CTA BL, NO RHONCHI OR WHEEZING EXT FULL ROM, NO TREMORS, AMB AD COMPA LEFT HIP WITH MILD TACTILE TENDERNESS, NO REDNESS OR SWELLING MILDLY ANXIOUS/RESTLESS Assessment: 02/07/19 11:58 WITHDRAWAL SX LEFT HIP DISCOMFORT Plan: CONTINUE DETOX ENCOURAGE ORAL FLUIDS ROBITUSSIN PRN FOR COUGH LIDOCAINE PATCH TO LEFT HIP MONITOR CLINICALLY
[2019-02-07] MEDS ORDERED: chlordiazePOXIDE HCL 10 MG CAPSULE PO PRN (21:00)
[2019-02-07] MEDS ORDERED: LIDOCAINE PATCH REMOVAL MC SCH (22:00)
[2019-02-07] MEDS: THIAMINE HCL 100 MG TABLET (FP) PO SCH (22:12)
[2019-02-07] MEDS: chlordiazePOXIDE HCL 10 MG CAPSULE PO SCH (22:12)
[2019-02-08] MEDS ORDERED: METHADONE HCL 5 MG TABLET (FOR DETOX USE ONLY) PO ONE (06:00)
[2019-02-08] MEDS: chlordiazePOXIDE HCL 10 MG CAPSULE PO SCH (06:47)
[2019-02-08] MEDS ORDERED: chlordiazePOXIDE HCL 10 MG CAPSULE PO SCH (10:00)
[2019-02-08] MEDS: LIDOCAINE 5% TOPICAL PATCH TP SCH (10:09)
[2019-02-08] MEDS: PRENATAL VITAMINS W/ FOLIC ACID TABLET (FP) PO SCH (10:09)
--- NOTE | 2019-02-08 10:40 | EKG ---
Test Reason : Blood Pressure : / mmHG Vent. Rate : 088 BPM Atrial Rate : 088 BPM P-R Int : 160 ms QRS Dur : 080 ms QT Int : 362 ms P-R-T Axes : 078 079 068 degrees QTc Int : 438 ms NORMAL SINUS RHYTHM POSSIBLE LEFT ATRIAL ENLARGEMENT LEFT VENTRICULAR HYPERTROPHY ABNORMAL ECG WHEN COMPARED WITH ECG OF 12-NOV-2018 02:52, NO SIGNIFICANT CHANGE WAS FOUND Confirmed by CECY HURTADO, BOB ([id number]) on 02/08/2019 10:40:24 AM Referred By: Confirmed By:BOB SAM MD
--- NOTE | 2019-02-08 13:27 | DS ---
[facility] Detox Discharge Summary Admission Date: 02/05/19 Discharge Date: 02/08/19 - History Present History: Alcohol Dependence, Cannabis Dependence, Cocaine Dependence, Opioid Dependence - Physical Exam Results Vital Signs: Vital Signs Temperature 98.0 F 02/08/19 09:48 Pulse Rate 103 H 02/08/19 09:48 Respiratory Rate 18 02/08/19 09:48 Blood Pressure 126/75 02/08/19 09:48 O2 Sat by Pulse Oximetry (%) - Treatment Hospital Course: Detox Protocol Followed, Detoxed Safely, Responded well, Discharged Condition Good, Rehab Referral Accepted - Medication Discharge Medications: Ambulatory Orders NK [No Known Home Medication] 02/25/18 - Diagnosis (1) Alcohol dependence with uncomplicated withdrawal Current Visit: Yes Status: Chronic (2) Cocaine dependence Current Visit: Yes Status: Chronic Qualifiers: Substance use status: uncomplicated Qualified Code(s): F14.20 - Cocaine dependence, uncomplicated (3) Nicotine dependence Current Visit: Yes Status: Chronic Qualifiers: Nicotine product type: cigarettes Substance use status: uncomplicated Qualified Code(s): F17.210 - Nicotine dependence, cigarettes, uncomplicated (4) Dehydration Current Visit: No Status: Acute (5) Opioid dependence with withdrawal Current Visit: Yes Status: Chronic (6) Chronic back pain Current Visit: No Status: Chronic (7) Cocaine dependence, uncomplicated Current Visit: No Status: Chronic (8) Depression (emotion) Current Visit: No Status: Chronic Qualifiers: Depression Type: dysthymia Qualified Code(s): F34.1 - Dysthymic disorder (9) Injury of hand, left Current Visit: No Status: Chronic Qualifiers: Encounter type: subsequent encounter Qualified Code(s): S69.92XD - Unspecified injury of left wrist, hand and finger(s), subsequent encounter - AMA Did Patient Leave Against Medical Advice: No (referred to [facility])
[2019-02-08 14:03] VITALS: BP 126/68; PULSE 94; TEMP 97.9
== END 2019-02-08 03:08 | disposition other institution (70) | DRG 773 ==
LOC: YASAS 13:51 → Y6N 16:58
PROVIDERS: ADMIT Surgery; ATTEND Surgery
PROC: HZ2ZZZZ Detoxification Services for Substance Abuse Treatment (ICD-10-PCS; principal; 2019-02-05)
DX: F11.23 Opioid dependence with withdrawal (principal); F10.230 Alcohol dependence with withdrawal, uncomplicated; F14.20 Cocaine dependence, uncomplicated; F17.210 Nicotine dependence, cigarettes, uncomplicated; F34.1 Dysthymic disorder; E86.0 Dehydration; M54.5 Low back pain; G89.29 Other chronic pain; M25.552 Pain in left hip; Z91.013 Allergy to seafood; Z59.0 Homelessness
CPT/HCPCS: 36415; 80053; 85027; 86593; 93005; 93010

== ENCOUNTER 2019-02-08 15:11 | Inpatient (IN) | payer OTHER ==
--- NOTE | 2019-02-08 14:22 | HP ---
[facility] Rehab Assess/Revision - Admission History Ad[facility] - Findings Detox History & Physical reviewed: Yes Concur with findings: Yes Inpatient Rehab Admission - Rehab Decision to Admit Inpatient rehab admission?: Yes - Initial Determination Are CD services needed?: Yes Free of communicable disease: Yes Not in need of hospitalization: Yes - Rehab Admission Criteria Previous failed treatment: Yes Poor recovery environment: Yes Comorbidities: Yes Lacks judgement: Yes Patient is meeting Inpatient Rehab admission criteria:: Yes
[~2019-02-08 15:11] MED LIST: ACETAMINOPHEN 325 MG TABLET (FP) PO PRN; IBUPROFEN 400 MG TABLET (FP) PO PRN; LOPERAMIDE HCL 2 MG CAPSULE PO PRN; MAG HYDROX/AL HYDROX/SIMETH 30 ML UNIT-DOSE CUP PO PRN; MAGNESIUM CITRATE 300 ML BOTTLE PO PRN; MAGNESIUM HYDROX 2400MG/30ML ORAL SUSPENSION 30 ML CUP PO PRN; MENTHOL/PHENOL 1 EACH UD MM PRN; P-EPHED 60MG/TRIPROLIDI 2.5MG TABLET PO PRN; guaiFENesin 200 MG/10 ML 10 ML UNIT-DOSE CUPS PO PRN; hydrOXYzine PAMOATE 50 MG CAPSULE (FP) PO PRN
[2019-02-08] MEDS ORDERED: MELATONIN 5 MG TABLETS PO PRN (22:00)
[2019-02-08] MEDS: THIAMINE HCL 100 MG TABLET (FP) PO SCH (22:11)
[2019-02-09] MEDS: PRENATAL VITAMINS W/ FOLIC ACID TABLET (FP) PO SCH (09:59)
[2019-02-09] MEDS: THIAMINE HCL 100 MG TABLET (FP) PO SCH (21:41)
[2019-02-10] MEDS: PRENATAL VITAMINS W/ FOLIC ACID TABLET (FP) PO SCH (10:22)
[2019-02-10] MEDS: THIAMINE HCL 100 MG TABLET (FP) PO SCH (21:54)
[2019-02-11 07:30] VITALS: BP 117/74; PULSE 63; TEMP 98.1
--- NOTE | 2019-02-11 09:51 | PN ---
[facility] Progress Note (SOAP) Subjective: patient is leaving for personal reasons; does not want to disclose. Objective: No neurological deficits noted; lungs clear, heart sounds audible, regular, abd soft, non-tender, non-distended, +BS. Medically stable for discharge. 02/11/19 09:49 Vital Signs (72 hours) 02/09/19 02/09/19 02/10/19 00:30 07:20 00:30 Temperature 98.1 F Pulse Rate 71 Respiratory 18 18 18 Rate Blood Pressure 112/71 02/10/19 02/10/19 02/11/19 03:30 07:14 07:29 Temperature 98.3 F 98.1 F Pulse Rate 75 63 Respiratory 18 18 18 Rate Blood Pressure 130/78 117/74 Assessment: Diagnoses: ETOH dependence, chronic Cocaine dependence, chronic Back pain, chronic 02/11/19 09:52 Plan: Client states he will go to [place], [place] to see family, then return to [facility] to find a detention. States he will seek support at [facility]. Does not have a primary care provider. Does not need any home medications renewed. Encouraged patient to find outpatient treatment program.
[2019-02-11] MEDS: PRENATAL VITAMINS W/ FOLIC ACID TABLET (FP) PO SCH (10:15)
== END 2019-02-11 09:55 | disposition left against medical advice (07) | DRG 770 ==
LOC: YASAS 15:11 → Y3W 15:12
PROVIDERS: ADMIT Neuromusculoskeletal Medicine & OMM; ATTEND Neuromusculoskeletal Medicine & OMM
PROC: HZ42ZZZ Group Counseling for Substance Abuse Treatment, Cognitive-Behavioral (ICD-10-PCS; principal; 2019-02-08)
DX: F10.230 Alcohol dependence with withdrawal, uncomplicated (principal); F11.23 Opioid dependence with withdrawal; F14.20 Cocaine dependence, uncomplicated; F17.210 Nicotine dependence, cigarettes, uncomplicated; Z59.0 Homelessness

== ENCOUNTER 2019-07-28 11:23 | Inpatient (IN) | payer OTHER ==
[2019-07-28 13:54] VITALS: BMI 21.2
--- NOTE | 2019-07-28 14:23 | HP ---
COWS - Scale Resting Pulse: 0= [place] 80 or Below Sweatin= Chills/Flushing Restless Observation: 1= Difficult to Sit Still Pupil Size: 1= Pupils >than Normal Bone or Joint Aches: 2= Severe Diffuse Aches Runny Nose/ Eye Tearin= Runny Nose/Eyes GI Upset > 30mins: 1= Stomach Cramp Tremor Observation: 1= Tremor Ong, Not Seen Yawning Observation: 1= 1-2x During Session Anxiety or Irritability: 2=Irritable/Anxious Goose Flesh Skin: 0=Smooth Skin COWS Score: 12 CIWA Score Nausea/Vomitin-Mild Nausea/No Vomiting Muscle Tremors: 3 Anxiety: 3 Agitation: 3 Paroxysmal Sweats: 1-Minimal Palms Moist Orientation: 0-Oriented Tacttile Disturbances: 0-None Auditory Disturbances: 0-None Visual Disturbances: 0-None Headache: 2-Mild CIWA-Ar Total Score: 13 - Admission Criteria OASAS Guidelines: Admission for Medically Managed Detox: Requires at least one of the followin. CIWA greater than 12 2. Seizures within the past 24 hours 3. Delirium tremens within the past 24 hours 4. Hallucinations within the past 24 hours 5. Acute intervention needed for co occurring medical disorder 6. Acute intervention needed for co occurring psychiatric disorder 7. Severe withdrawal that cannot be handled at a lower level of care (continued vomiting, continued diarrhea, abnormal vital signs) requiring intravenous medication and/or fluids 8. Patient presents the following: CIWA greater than 12 Admission Criteria Met: Admission criteria met Admitting History and Physical - Primary Care Physician PCP: denies - Smoking History Smoking history: Current every day smoker Have you smoked in the past 12 months: Yes Aproximately how many cigarettes per day: 10 - Alcohol/Substance Use Hx Alcohol Use: Yes Admission ROS [facility] Chief Complaint: Evaristo Leon is a 49 year old male presenting for heroin, alcohol, and cocaine detox. Allergies/Adverse Reactions: Allergies Allergy/AdvReac Type Severity Reaction Status Date / Time fish derived Allergy Verified 07/28/19 13:51 History of Present Illness: Evaristo Leon is a 49 year old male presenting for heroin, alcohol, and cocaine detox. Heroin: 10 bags/day. Last use yesterday, daily user. Has been using for "years" . Denies IVDU. Intranasal use. Denies overdose. States has a Narcan kit at home and knows how to use it. Denies ever being on a methadone program. Longest period of sobriety: 1.5 years. Alcohol: 6 pack/day. 12oz bottles. Denies hard alcohol. Last drink yesterday. Daily drinker. Has been drinking since he was 18 years old. Denies seizures, blackout, falls, head hits. Cocaine: "a few bags/day" Has been to detox and rehab in the past. Did not complete most recent rehab. He is unsure of what his plans are after detox but may want to be on a methadone program and complete rehab. Medical History: denies Psychiatric History: denies Surgical History: denies Meds: denies Smoking: few cigarettes/day, does not nicotine patch. Social: lives in a fdc. 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 Exam Limitations: No Limitations - Ebola screening Have you traveled outside of the country in the last 21 days: No (N) Have you had contact with anyone from an Ebola affected area: No Do you have a fever: No - Review of Systems Constitutional: Chills, Loss of Appetite EENT: reports: No Symptoms Reported Respiratory: reports: No Symptoms reported Cardiac: reports: No Symptoms Reported GI: reports: Nausea : reports: No Symptoms Reported Musculoskeletal: reports: Back Pain Integumentary: reports: No Symptoms Reported Neuro: reports: No Symptoms reported Endocrine: reports: No Symptoms Reported Hematology: reports: No Symptoms Reported Psychiatric: reports: Orientated x3, Agitated, Anxious Patient History - Patient Medical History Hx Anemia: No Hx Asthma: No Hx Chronic Obstructive Pulmonary Disease (COPD): No Hx Cancer: No Hx Cardiac Disorders: No Hx Congestive Heart Failure: No Hx Hypertension: No Hx Hypercholesterolemia: No Hx Pacemaker: No HX Cerebrovascular Accident: No Hx Seizures: No Hx Diabetes: No Hx Gastrointestinal Disorders: No Hx Liver Disease: No Hx Genitourinary Disorders: No Hx Sexually Transmitted Disorders: No Hx Renal Disease (ESRD): No Hx Thyroid Disease: No Hx Human Immunodeficiency Virus (HIV): No Hx Hepatitis C: No Hx Depression: No Hx Suicide Attempt: No Hx Bipolar Disorder: No Hx Schizophrenia: No - Patient Surgical History Past Surgical History: No Hx Neurologic Surgery: No Hx Cataract Extraction: No Hx Cardiac Surgery: No Hx Lung Surgery: No Hx Breast Surgery: No Hx Breast Biopsy: No Hx Abdominal Surgery: No Hx Appendectomy: No Hx Cholecystectomy: No Hx Genitourinary Surgery: No Hx Section: No Hx Orthopedic Surgery: No Anesthesia Reaction: No - PPD History Previous Implant?: Yes Documented Results: Negative w/o proof Date: 02/08/19 Results: 0 mm PPD to be Administered?: No - Smoking Cessation Smoking history: Current every day smoker Have you smoked in the past 12 months: Yes Aproximately how many cigarettes per day: 10 Cigars Per Day: 0 Hx Chewing Tobacco Use: No Initiated information on smoking cessation: Yes 'Breaking Loose' booklet given: 07/28/19 - Substance & Tx. History Hx Alcohol Use: Yes Hx Substance Use: Yes Substance Use Type: Alcohol, Heroin - Substances abused Heroin Substance route: Inhalation Frequency: Daily Amount used: 10 bags Age of first use: 19 Date of last use: 07/27/19 Alcohol Frequency: Daily Amount used: 6 pk beer Age of first use: 18 Date of last use: 07/27/19 Admission Physical Exam [facility] - Vital Signs Vital Signs: Vital Signs - 24 hr 07/28/19 13:52 Temperature 98.0 F Pulse Rate 67 Respiratory 18 Rate Blood Pressure 123/74 - Physical General Appearance: Yes: Disheveled, Mild Distress HEENTM: Yes: EOMI, Normocephalic, Normal Voice, IAN, Pharynx Normal Respiratory: Yes: Chest Non-Tender, Lungs Clear, Normal Breath Sounds, No Respiratory Distress, No Accessory Muscle Use Neck: Yes: No masses,lesions,Nodules, Trachea in good position Breast: Yes: Breast Exam Deferred Cardiology: Yes: Regular Rhythm, Regular Rate, S1, S2 Abdominal: Yes: Normal Bowel Sounds, Non Tender, Flat, Soft Genitourinary: Yes: Within Normal Limits Back: Yes: Normal Inspection Musculoskeletal: Yes: full range of Motion, Back pain 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 NML intact, Fully Oriented, Alert, Motor Strength 5/5, Normal Response Integumentary: Yes: Normal Color, Dry, Warm Lymphatic: Yes: Within Normal Limits Cleared for Admission [facility] - Detox or Rehab [facility] Level of Care: Medically Managed Detox Regimen/Protocol: Methadone/Librium Breathalyzer - Breathalyzer Breathalyzer: 0 Urine Drug Screen - Test Device Lot number: [id number] Expiration date: 03/26/21 - Control Is test valid?: Yes - Results Drug screen NEGATIVE: No Urine drug screen results: THC-Marijuana, SUPRIYA-Cocaine, MOP-Opiates Inpatient Rehab Admission - Rehab Decision to Admit Inpatient rehab admission?: No
--- NOTE | 2019-07-28 14:49 | PN ---
Teaching Attending Note Name of Resident: Ranjit Garcia ATTENDING PHYSICIAN STATEMENT I saw and evaluated the patient. I reviewed the resident's note and discussed the case with the resident. I agree with the resident's findings and plan as documented. SUBJECTIVE: 49yo with alcohol and heroin use disorders- also uses cocaine. LAst here in 01/2019 for detox. OBJECTIVE: Vital Signs - 24 hr 07/28/19 13:52 Temperature 98.0 F Pulse Rate 67 Respiratory 18 Rate Blood Pressure 123/74 tremulous alert and oriented ASSESSMENT AND PLAN: alcohol use disorder- librium detox protocol Opioid use disorder- methadone detox
[2019-07-28] MEDS ORDERED: cloNIDine HCL 0.1 MG TABLET PO PRN (14:55)
[2019-07-28] MEDS ORDERED: hydrOXYzine PAMOATE 25 MG CAPSULE (FP) PO PRN (14:55)
[2019-07-28] MEDS ORDERED: MAG HYDROX/AL HYDROX/SIMETH 30 ML UNIT-DOSE CUP PO PRN (14:55)
[2019-07-28] MEDS ORDERED: chlordiazePOXIDE HCL 10 MG CAPSULE PO PRN (14:55)
[2019-07-28] MEDS ORDERED: MAGNESIUM HYDROX 2400MG/30ML ORAL SUSPENSION 30 ML CUP PO PRN (14:55)
[2019-07-28] MEDS ORDERED: MAGNESIUM CITRATE 300 ML BOTTLE PO PRN (14:55)
[2019-07-28] MEDS ORDERED: BISMUTH SUBSALICYLATE 262 MG/15 ML BTL PO PRN (14:55)
[2019-07-28] MEDS ORDERED: ACETAMINOPHEN 325 MG TABLET (FP) PO PRN ×2 (14:55)
[2019-07-28] MEDS ORDERED: MENTHOL/PHENOL 1 EACH UD MM PRN (14:55)
[2019-07-28] MEDS ORDERED: METHADONE HCL 10 MG TABLET (FOR DETOX USE ONLY) PO ONE (15:55)
[2019-07-28] MEDS: THIAMINE HCL 100 MG TABLET (FP) PO SCH (21:18)
[2019-07-28] MEDS: MELATONIN 5 MG TABLETS PO PRN (21:18)
[2019-07-28] MEDS: chlordiazePOXIDE HCL 25 MG CAPSULE PO SCH (21:18)
[2019-07-28] MEDS: IBUPROFEN 400 MG TABLET (FP) PO PRN (21:18)
[2019-07-29] MEDS: chlordiazePOXIDE HCL 25 MG CAPSULE PO SCH ×3 (05:35→22:21)
[2019-07-29] MEDS ORDERED: ONDANSETRON *ODT* 4 MG TABLET SL ONE (08:13)
[2019-07-29] MEDS ORDERED: METHADONE HCL 10 MG TABLET (FOR DETOX USE ONLY) ONE (09:46)
[2019-07-29] MEDS ORDERED: METHADONE HCL 5 MG TABLET (FOR DETOX USE ONLY) ONE (09:46)
[2019-07-29] MEDS ORDERED: METHADONE (DETOX) 20 MG, METHADONE (DETOX) 5 MG PO ONE (10:00)
[2019-07-29] MEDS: PRENATAL VITAMINS W/ FOLIC ACID TABLET (FP) PO SCH (10:15)
[2019-07-29 10:46] LABS: HEMATOCRIT 40.4 % (35.4-49); HEMOGLOBIN 13.6 GM/dL (11.7-16.9); MCH 28.7 pg (25.7-33.7); MCHC 33.5 g/dl (32.0-35.9); MEAN CELL VOLUME 85.4 fl (80-96); MEAN PLT VOLUME 7.9 fl (7.5-11.1); PLATELET COUNT 280 K/MM3 (134-434); RBC 4.73 M/mm3 (4.00-5.60); RDW 14.1 % (11.9-15.9); WHITE BLOOD COUNT 3.8 K/mm3 (4.0-10.0)
[2019-07-29 11:04] LABS: BILIRUBIN,TOTAL 0.6 mg/dL (0.2-1); BLOOD UREA NITROGEN 13.2 mg/dL (7-18); CALCIUM 8.5 mg/dL (8.5-10.1); POTASSIUM 4.2 mmol/L (3.5-5.1); TOT PROT 5.8 g/dl (6.4-8.2)
--- NOTE | 2019-07-29 13:01 | PN ---
[facility] CIWA - CIWA Score Nausea/Vomitin Muscle Tremors: 1-None Visible, but [place] Anxiety: 3 Agitation: 1-Slight > Activity Paroxysmal Sweats: 2 Orientation: 0-Oriented Tacttile Disturbances: 2-Mild Itch/Numbness/Burn Auditory Disturbances: 0-None Visual Disturbances: 0-None Headache: 0-None Present CIWA-Ar Total Score: 12 S COWS - Scale Resting Pulse: 0= [place] 80 or Below Sweatin= Chills/Flushing Restless Observation: 1= Difficult to Sit Still Pupil Size: 0= Normal to Room Light Bone or Joint Aches: 1= Mild Discomfort Runny Nose/ Eye Tearin= Runny Nose/Eyes GI Upset > 30mins: 2= Nausea/Diarrhea Tremor Observation of Outstretched Hands: 1= Tremor [place], Not Seen Yawning Observation: 1= 1-2x During Session Anxiety or Irritability: 2=Irritable/Anxious Goose Flesh Skin: 0=Smooth Skin COWS Score: 11 [facility] Progress Note (SOAP) Subjective: c/o of anxious, nausea , back pain, chills, sweats Objective: 07/29/19 12:54 Vital Signs Temperature 97.9 F 07/29/19 09:29 Pulse Rate 76 07/29/19 09:29 Respiratory Rate 16 07/29/19 09:29 Blood Pressure 106/61 07/29/19 09:29 O2 Sat by Pulse Oximetry (%) Laboratory Last Values WBC 3.8 K/mm3 (4.0-10.0) L 07/29/19 08:00 RBC 4.73 M/mm3 (4.00-5.60) 07/29/19 08:00 Hgb 13.6 GM/dL (11.7-16.9) 07/29/19 08:00 Hct 40.4 % (35.4-49) 07/29/19 08:00 MCV 85.4 fl (80-96) 07/29/19 08:00 MCH 28.7 pg (25.7-33.7) 07/29/19 08:00 MCHC 33.5 g/dl (32.0-35.9) 07/29/19 08:00 RDW 14.1 % (11.9-15.9) 07/29/19 08:00 Plt Count 280 K/MM3 (134-434) 07/29/19 08:00 MPV 7.9 fl (7.5-11.1) 07/29/19 08:00 Sodium 141 mmol/L (136-145) 07/29/19 08:00 Potassium 4.2 mmol/L (3.5-5.1) 07/29/19 08:00 Chloride 108 mmol/L (98-107) H 07/29/19 08:00 Carbon Dioxide 29 mmol/L (21-32) 07/29/19 08:00 Anion Gap 5 MMOL/L (8-16) L 07/29/19 08:00 BUN 13.2 mg/dL (7-18) 07/29/19 08:00 Creatinine 1.0 mg/dL (0.55-1.3) 07/29/19 08:00 Est GFR (CKD-EPI)AfAm 101.98 07/29/19 08:00 Est GFR (CKD-EPI)NonAf 87.99 07/29/19 08:00 Random Glucose 93 mg/dL (74-106) 07/29/19 08:00 Calcium 8.5 mg/dL (8.5-10.1) 07/29/19 08:00 Total Bilirubin 0.6 mg/dL (0.2-1) 07/29/19 08:00 AST 16 U/L (15-37) 07/29/19 08:00 ALT 22 U/L (13-61) 07/29/19 08:00 Alkaline Phosphatase 90 U/L (45-117) 07/29/19 08:00 Total Protein 5.8 g/dl (6.4-8.2) L 07/29/19 08:00 Albumin 3.0 g/dl (3.4-5.0) L 07/29/19 08:00 RPR Titer Nonreactive (NONREACTIVE) 07/29/19 08:00 labs review Assessment: 07/29/19 12:55 Aox3 no acute distress no JVD no adventitious breath sounds full ROM no gait abnormality, ambulating in unit withdrawal sx Plan: continue detox continue to monitor
--- NOTE | 2019-07-29 14:05 | PN ---
S Progress Note Note: Patient very irritable. Patient reports he does not wish to take the librium the way is administered as per protocol re: capsules are open and given with juice. Reinforced protocol with patient verbalizes understanding. Continue to monitor.
[2019-07-29] MEDS: THIAMINE HCL 100 MG TABLET (FP) PO SCH (22:21)
[2019-07-30] MEDS: chlordiazePOXIDE 5 MG CAPSULE PO SCH ×3 (06:36→22:28)
[2019-07-30] MEDS ORDERED: METHADONE HCL 10 MG TABLET (FOR DETOX USE ONLY) PO ONE (10:00)
[2019-07-30] MEDS: PRENATAL VITAMINS W/ FOLIC ACID TABLET (FP) PO SCH (10:12)
--- NOTE | 2019-07-30 13:28 | PN ---
S CIWA - CIWA Score Nausea/Vomitin Muscle Tremors: 2 Anxiety: 3 Agitation: 1-Slight > Activity Paroxysmal Sweats: 1-Minimal Palms Moist Orientation: 0-Oriented Tacttile Disturbances: 0-None Auditory Disturbances: 0-None Visual Disturbances: 0-None Headache: 0-None Present CIWA-Ar Total Score: 9 BHS COWS - Scale Resting Pulse: 0= IN 80 or Below Sweatin= Chills/Flushing Restless Observation: 1= Difficult to Sit Still Pupil Size: 0= Normal to Room Light Bone or Joint Aches: 0= None Runny Nose/ Eye Tearin= None GI Upset > 30mins: 2= Nausea/Diarrhea Tremor Observation of Outstretched Hands: 2= Slight Tremor Visible Yawning Observation: 0= None Anxiety or Irritability: 2=Irritable/Anxious Goose Flesh Skin: 0=Smooth Skin COWS Score: 8 BHS Progress Note (SOAP) Subjective: Patient c/o anxiety, restlessness, nausea/diarrhea and chills. Objective: 07/30/19 13:27 Vital Signs Temperature 98.2 F 07/30/19 13:02 Pulse Rate 68 07/30/19 13:02 Respiratory Rate 18 07/30/19 13:02 Blood Pressure 124/80 07/30/19 13:02 O2 Sat by Pulse Oximetry (%) Laboratory Tests 07/29/19 07/29/19 07/29/19 08:00 08:00 08:00 WBC 3.8 L RBC 4.73 Hgb 13.6 Hct 40.4 MCV 85.4 MCH 28.7 MCHC 33.5 RDW 14.1 Plt Count 280 MPV 7.9 Sodium 141 Potassium 4.2 Chloride 108 H Carbon Dioxide 29 Anion Gap 5 L BUN 13.2 Creatinine 1.0 Est GFR (CKD-EPI)AfAm 101.98 Est GFR (CKD-EPI)NonAf 87.99 Random Glucose 93 Calcium 8.5 Total Bilirubin 0.6 AST 16 ALT 22 Alkaline Phosphatase 90 Total Protein 5.8 L Albumin 3.0 L RPR Titer Nonreactive PE alert and oriented x 3 skin warm, mild moisture to palms +perrla, eoms intact bl gi nt, nd ext full rom, mild tremors anxious Assessment: 07/30/19 13:28 Opiod/ETOH withdrawal symptoms Plan: continue detox encourage oral fluids and supportive medications monitor clinically
[2019-07-30] MEDS: IBUPROFEN 400 MG TABLET (FP) PO PRN (19:52)
[2019-07-30] MEDS: MELATONIN 5 MG TABLETS PO PRN (22:11)
[2019-07-30] MEDS: THIAMINE HCL 100 MG TABLET (FP) PO SCH (22:11)
[2019-07-31] MEDS ORDERED: chlordiazePOXIDE HCL 10 MG CAPSULE PO PRN
[2019-07-31] MEDS: chlordiazePOXIDE HCL 10 MG CAPSULE PO SCH ×3 (06:45→21:49)
[2019-07-31] MEDS ORDERED: METHADONE HCL 10 MG TABLET (FOR DETOX USE ONLY) ONE (09:56)
[2019-07-31] MEDS ORDERED: METHADONE HCL 5 MG TABLET (FOR DETOX USE ONLY) ONE (09:56)
[2019-07-31] MEDS ORDERED: METHADONE (DETOX) 10 MG, METHADONE (DETOX) 5 MG PO ONE (10:00)
[2019-07-31] MEDS: PRENATAL VITAMINS W/ FOLIC ACID TABLET (FP) PO SCH (11:30)
--- NOTE | 2019-07-31 11:44 | PN ---
S CIWA - CIWA Score Nausea/Vomitin-No Nausea/No Vomiting Muscle Tremors: None Anxiety: 3 Agitation: 0-Normal Activity Paroxysmal Sweats: 3 Orientation: 0-Oriented Tacttile Disturbances: 0-None Auditory Disturbances: 0-None Visual Disturbances: 0-None Headache: 2-Mild CIWA-Ar Total Score: 8 BHS COWS - Scale Resting Pulse: 0= [place] 80 or Below Sweatin= Chills/Flushing Restless Observation: 1= Difficult to Sit Still Pupil Size: 0= Normal to Room Light Bone or Joint Aches: 2= Severe Diffuse Aches Runny Nose/ Eye Tearin= None GI Upset > 30mins: 0= None Tremor Observation of Outstretched Hands: 0= None Yawning Observation: 1= 1-2x During Session Anxiety or Irritability: 2=Irritable/Anxious Goose Flesh Skin: 0=Smooth Skin COWS Score: 7 S Progress Note (SOAP) Subjective: c/o anxiety, irritability, sweats, headache. Objective: 07/31/19 11:43 Vital Signs 07/31/19 07/31/19 06:00 09:34 Temperature 97.7 F 97.6 F Pulse Rate 85 70 Respiratory 18 18 Rate Blood Pressure 124/67 131/79 Lab Results WBC 3.8 K/mm3 (4.0-10.0) L 07/29/19 08:00 RBC 4.73 M/mm3 (4.00-5.60) 07/29/19 08:00 Hgb 13.6 GM/dL (11.7-16.9) 07/29/19 08:00 Hct 40.4 % (35.4-49) 07/29/19 08:00 MCV 85.4 fl (80-96) 07/29/19 08:00 MCHC 33.5 g/dl (32.0-35.9) 07/29/19 08:00 RDW 14.1 % (11.9-15.9) 07/29/19 08:00 Plt Count 280 K/MM3 (134-434) 07/29/19 08:00 Sodium 141 mmol/L (136-145) 07/29/19 08:00 Potassium 4.2 mmol/L (3.5-5.1) 07/29/19 08:00 Chloride 108 mmol/L (98-107) H 07/29/19 08:00 Carbon Dioxide 29 mmol/L (21-32) 07/29/19 08:00 Anion Gap 5 MMOL/L (8-16) L 07/29/19 08:00 BUN 13.2 mg/dL (7-18) 07/29/19 08:00 Creatinine 1.0 mg/dL (0.55-1.3) 07/29/19 08:00 Random Glucose 93 mg/dL (74-106) 07/29/19 08:00 Calcium 8.5 mg/dL (8.5-10.1) 07/29/19 08:00 Labs noted. Assessment: 07/31/19 11:43 AOX3, in no acute respiratory distress. Full ROM, ambulating in the unt. Withdrawal symptoms. Plan: continue detox.
[2019-07-31] MEDS: METHOCARBAMOL 500 MG TABLET PO PRN (15:41)
[2019-07-31] MEDS: THIAMINE HCL 100 MG TABLET (FP) PO SCH (21:49)
[2019-07-31] MEDS: MELATONIN 5 MG TABLETS PO PRN (21:50)
[2019-07-31] MEDS: IBUPROFEN 400 MG TABLET (FP) PO PRN (21:51)
[2019-08-01] MEDS ORDERED: chlordiazePOXIDE HCL 10 MG CAPSULE PO ONE (05:00)
[2019-08-01] MEDS ORDERED: METHADONE HCL 10 MG TABLET (FOR DETOX USE ONLY) PO ONE (10:00)
[2019-08-01] MEDS: PRENATAL VITAMINS W/ FOLIC ACID TABLET (FP) PO SCH (10:14)
[2019-08-01] MEDS: IBUPROFEN 400 MG TABLET (FP) PO PRN ×2 (10:16→21:03)
[2019-08-01] MEDS: METHOCARBAMOL 500 MG TABLET PO PRN ×2 (12:53→18:14)
--- NOTE | 2019-08-01 15:44 | PN ---
[facility] CIWA - CIWA Score Nausea/Vomitin-Mild Nausea/No Vomiting Muscle Tremors: 2 Anxiety: 2 Agitation: 0-Normal Activity Paroxysmal Sweats: 3 Orientation: 0-Oriented Tacttile Disturbances: 0-None Auditory Disturbances: 0-None Visual Disturbances: 0-None Headache: 0-None Present CIWA-Ar Total Score: 8 [facility] COWS - Scale Resting Pulse: 0= NE 80 or Below Sweatin=Flushed/Facial Moisture Restless Observation: 0= Sits Still Pupil Size: 0= Normal to Room Light Bone or Joint Aches: 1= Mild Discomfort Runny Nose/ Eye Tearin= Nasal Congestion GI Upset > 30mins: 0= None Tremor Observation of Outstretched Hands: 1= Tremor [place], Not Seen Yawning Observation: 0= None Anxiety or Irritability: 0= None Goose Flesh Skin: 0=Smooth Skin COWS Score: 5 [facility] Progress Note (SOAP) Subjective: sweats Objective: 08/01/19 15:43 slight tremors flushed skin Vital Signs Temperature 98.2 F 08/01/19 12:47 Pulse Rate 63 08/01/19 12:47 Respiratory Rate 18 08/01/19 12:47 Blood Pressure 125/74 08/01/19 12:47 O2 Sat by Pulse Oximetry (%) Assessment: 08/01/19 15:43 withdrawal sx Plan: continue detox for d/c in a.m
[2019-08-01] MEDS: THIAMINE HCL 100 MG TABLET (FP) PO SCH (21:03)
[2019-08-01] MEDS: MELATONIN 5 MG TABLETS PO PRN (21:04)
[2019-08-02] MEDS ORDERED: METHADONE HCL 5 MG TABLET (FOR DETOX USE ONLY) PO ONE (06:00)
--- NOTE | 2019-08-02 09:02 | DS ---
[facility] Detox Discharge Summary Admission Date: 07/28/19 Discharge Date: 08/02/19 - History Present History: Alcohol Dependence, Opioid Dependence - Physical Exam Results Vital Signs: Vital Signs Temperature 97.5 F L 08/02/19 06:00 Pulse Rate 62 08/02/19 06:00 Respiratory Rate 18 08/02/19 06:00 Blood Pressure 120/70 08/02/19 06:00 O2 Sat by Pulse Oximetry (%) Pertinent Admission Physical Exam Findings: pt arrived in withdrawals Laboratory Tests 07/29/19 07/29/19 07/29/19 08:00 08:00 08:00 WBC 3.8 L RBC 4.73 Hgb 13.6 Hct 40.4 MCV 85.4 MCH 28.7 MCHC 33.5 RDW 14.1 Plt Count 280 MPV 7.9 Sodium 141 Potassium 4.2 Chloride 108 H Carbon Dioxide 29 Anion Gap 5 L BUN 13.2 Creatinine 1.0 Est GFR (CKD-EPI)AfAm 101.98 Est GFR (CKD-EPI)NonAf 87.99 Random Glucose 93 Calcium 8.5 Total Bilirubin 0.6 AST 16 ALT 22 Alkaline Phosphatase 90 Total Protein 5.8 L Albumin 3.0 L RPR Titer Nonreactive today pt is aaox3 ambulating no acute distress no s/s of withdrawals - Treatment Hospital Course: Detox Protocol Followed, Detoxed Safely, Responded well, Discharged Condition Good, Rehab Referral Accepted Patient has Accepted a Rehab Referral to: pt referred to [facility] [place] rehab - Medication Discharge Medications: Ambulatory Orders NK [No Known Home Medication] 02/25/18 - Diagnosis (1) Alcohol dependence with uncomplicated withdrawal Current Visit: Yes Status: Chronic (2) Chronic back pain Current Visit: Yes Status: Chronic Qualifiers: Back pain location: back pain in unspecified location Back pain laterality : unspecified Qualified Code(s): M54.9 - Dorsalgia, unspecified; G89.29 - Other chronic pain (3) Cocaine dependence Current Visit: Yes Status: Chronic Qualifiers: Substance use status: uncomplicated Qualified Code(s): F14.20 - Cocaine dependence, uncomplicated (4) Cocaine dependence, uncomplicated Current Visit: Yes Status: Chronic (5) Depression (emotion) Current Visit: No Status: Chronic Qualifiers: Depression Type: dysthymia Qualified Code(s): F34.1 - Dysthymic disorder (6) Nicotine dependence Current Visit: Yes Status: Chronic Qualifiers: Nicotine product type: cigarettes Substance use status: uncomplicated Qualified Code(s): F17.210 - Nicotine dependence, cigarettes, uncomplicated (7) Opioid dependence with withdrawal Current Visit: Yes Status: Chronic - AMA Did Patient Leave Against Medical Advice: No
[2019-08-02] MEDS: PRENATAL VITAMINS W/ FOLIC ACID TABLET (FP) PO SCH (10:11)
[2019-08-02] MEDS: METHOCARBAMOL 500 MG TABLET PO PRN (10:13)
[2019-08-02 16:44] VITALS: BP 104/62; PULSE 57; TEMP 98.2
== END 2019-08-02 17:18 | disposition home or self-care (01) | DRG 773 ==
LOC: YASAS 11:23 → Y6N 15:44
PROVIDERS: ADMIT Surgery; ATTEND Surgery
PROC: HZ2ZZZZ Detoxification Services for Substance Abuse Treatment (ICD-10-PCS; principal; 2019-07-28)
DX: F11.23 Opioid dependence with withdrawal (principal); F10.230 Alcohol dependence with withdrawal, uncomplicated; F14.20 Cocaine dependence, uncomplicated; F17.210 Nicotine dependence, cigarettes, uncomplicated; F34.1 Dysthymic disorder; M54.9 Dorsalgia, unspecified; G89.29 Other chronic pain; G25.1 Drug-induced tremor; Z91.013 Allergy to seafood; Z59.0 Homelessness
CPT/HCPCS: 36415; 80053; 85027; 86593; Q0162

== ENCOUNTER 2019-08-02 17:31 | Inpatient (IN) | payer OTHER ==
[~2019-08-02 17:31] MED LIST changes: +NICOTINE POLACRILEX 4 MG GUM BUC PRN
[2019-08-02] MEDS: MELATONIN 5 MG TABLETS PO PRN (21:23)
[2019-08-02] MEDS: THIAMINE HCL 100 MG TABLET (FP) PO SCH (21:23)
[2019-08-03] MEDS ORDERED: NICOTINE 21 MG/24 HOURS TOPICAL PATCH TD SCH (10:00)
[2019-08-03] MEDS ORDERED: PRENATAL VITAMINS W/ FOLIC ACID TABLET (FP) PO SCH (10:00)
--- NOTE | 2019-08-03 16:40 | HOSP ---
Subjective - Review of Symptoms Subjective: Called at 4:30pm, patient wants to leave AMA from rehab from heroin, cocaine, alcohol, marijuana (been here for 1 day). Upon arrival to the floor, patient is sitting in chair appearing slightly agitated but comfortable. Reports that he wants to leave. Does not want to give a reason for wanting to leave. States that his pants are soaking wet and cannot leave while his pants are wet. He elects to wait until his pants are dry, likely tomorrow morning, before leaving. Physical Examination Vital Signs: Vital Signs Temperature 97.7 F 08/03/19 06:51 Pulse Rate 72 08/03/19 06:51 Respiratory Rate 18 08/03/19 06:51 Blood Pressure 117/69 08/03/19 06:51 O2 Sat by Pulse Oximetry (%) Visit type - Emergency Visit Emergency Visit: No - New Patient This patient is new to me today: No - Critical Care Critical Care patient: No
[2019-08-03] MEDS: THIAMINE HCL 100 MG TABLET (FP) PO SCH (21:20)
[2019-08-03] MEDS: MELATONIN 5 MG TABLETS PO PRN (21:20)
[2019-08-04 06:55] VITALS: BP 142/78; PULSE 65; TEMP 98
--- NOTE | 2019-08-04 12:28 | DS ---
[facility] Rehab Discharge Summary - [facility] Rehab Discharge Summary Admission Date: 08/02/19 Discharge Date: 08/04/19 - History Present History: Alcohol dependence, Cocaine dependence, Opioid dependence Additional Comments: Pt is a 49 y/o male admitted to rehab after completing detox on . Pt terminated treatment in rehab and left earlier this morning. Pt was not physically seen by this provider today before exiting. Pertinent Past History: Chronic back pain - Discharge Physical Exam Vital Signs: Vital Signs Temperature 98.0 F 08/04/19 06:54 Pulse Rate 65 08/04/19 06:54 Respiratory Rate 18 08/04/19 06:54 Blood Pressure 142/78 08/04/19 06:54 O2 Sat by Pulse Oximetry (%) Pertinent Admission Physical Exam Findings: unchanged from admission - Treatment Discharge Condition: Discharge condition good (per nurses notes) Hospital Course: Short rehab stay was safe referred to [facility] outpt program - Medication Discharge Medications: Ambulatory Orders NK [No Known Home Medication] 02/25/18 - Medication-Assisted Treatment (MAT) Medication-Assisted Treatment (MAT): No - Discharge Instructions Diet, activity, other medical instructions: Diet:Regular Activity: oob ad angle Other medical instructions:Pt will follow up with CD aftercare at [facility] Outpatient program on [place], [place] Pt will Follow up with primary care at [facility] outpt clinic when needed. - Follow-up Referral Minutes to complete discharge: 5 - AMA Did Patient Leave Against Medical Advice: Yes
== END 2019-08-04 08:09 | disposition left against medical advice (07) | DRG 770 ==
LOC: YASAS 17:31 → Y5N 17:32
PROVIDERS: ADMIT Neuromusculoskeletal Medicine & OMM; ATTEND Neuromusculoskeletal Medicine & OMM
PROC: HZ42ZZZ Group Counseling for Substance Abuse Treatment, Cognitive-Behavioral (ICD-10-PCS; principal; 2019-08-02)
DX: F11.20 Opioid dependence, uncomplicated (principal); F10.20 Alcohol dependence, uncomplicated; F14.20 Cocaine dependence, uncomplicated; F17.210 Nicotine dependence, cigarettes, uncomplicated; Z59.0 Homelessness

== ENCOUNTER 2019-10-25 19:37 | Inpatient (IN) | payer OTHER ==
[2019-10-25 20:36] VITALS: BMI 21.0
--- NOTE | 2019-10-25 23:08 | HP ---
CIWA Score Nausea/Vomitin-Mild Nausea/No Vomiting Muscle Tremors: 4-Moderate,w/Arms Extend Anxiety: 1-Mildly Anxious Agitation: 3 (Increased facial moisture) Paroxysmal Sweats: 3 Orientation: 0-Oriented Tacttile Disturbances: 0-None Auditory Disturbances: 0-None Visual Disturbances: 0-None Headache: 0-None Present CIWA-Ar Total Score: 12 - Admission Criteria OASAS Guidelines: Admission for Medically Managed Detox: Requires at least one of the followin. CIWA greater than 12 2. Seizures within the past 24 hours 3. Delirium tremens within the past 24 hours 4. Hallucinations within the past 24 hours 5. Acute intervention needed for co occurring medical disorder 6. Acute intervention needed for co occurring psychiatric disorder 7. Severe withdrawal that cannot be handled at a lower level of care (continued vomiting, continued diarrhea, abnormal vital signs) requiring intravenous medication and/or fluids 8. Patient presents the following: CIWA greater than 12 Admission Criteria Met: Admission criteria met Admitting History and Physical - Smoking History Smoking history: Current every day smoker Have you smoked in the past 12 months: Yes Aproximately how many cigarettes per day: 10 - Alcohol/Substance Use Hx Alcohol Use: Yes Admission ROS S - [facility] Chief Complaint: "Here to get help cause I'm using Heroin and Alcohol" Allergies/Adverse Reactions: Allergies Allergy/AdvReac Type Severity Reaction Status Date / Time fish derived Allergy Verified 07/28/19 13:51 History of Present Illness: 49 yo presents w/ Patient left rehab after 2 days and states did not relapse until the beginning of September. Denies seizures, blackouts, overdoses. TAO: 0.0 UTox: +SUPRIYA/FEN/MOP Alcohol use since age 19. Currently drinking 6-12oz beers daily, Opiate use began at age 19. Patient is currently enrolled in a Suboxone program and last picked up scripts 10 days ago. Patient informed that he would be restarted on Suboxone in a.m. and verbalizes an understanding. Cocaine use since age [age]. Currently uses 3-4 bags/day. Smokes. Nicotine use since age 12. Currently smokes 5 cig/day. PMHx: Back pain w/ sciatica RPR: 07/2019: Non-reactive EK01/25/19: Abn. MHHx: Denies MH issues. Denies thoughts of harming self or others. SHx: Chcf. Unemployed. Denies legal issues Patient Name: Evaristo Leon Date: 1970 Address: [address] [place] [address] Sex: Male Rx Written Rx Dispensed Drug Quantity Days Supply Prescriber Name 10/14/2019 10/15/2019 buprenorphine-naloxone 8-2 mg sl film 42 21 Neris Nazario (JOANA) 10/01/2019 10/01/2019 buprenorphine-naloxone 8-2 mg sl film 30 15 Stanrichelle, Elsa 09/16/2019 09/16/2019 buprenorphine-naloxone 8-2 mg sl film 30 15 Stancliff, Elsa 09/09/2019 09/09/2019 buprenorphine-naloxone 8-2 mg sl film 14 7 Juanjo, Elsa 09/02/2019 09/02/2019 buprenorphine-naloxone 8-2 mg sl film 6 2 LaksNam MD 09/02/2019 09/02/2019 chlordiazepoxide 10 mg capsule 35 3 Laks, Nam HURTADO Exam Limitations: No Limitations - Ebola screening Have you traveled outside of the country in the last 21 days: No (N) Have you had contact with anyone from an Ebola affected area: No Have you been sick,other than usual withdrawal symptoms: No Do you have a fever: No - Review of Systems Constitutional: Chills, Diaphoresis, Changes in sleep (Difficulty falling and staying asleep), Unexplained wgt Loss EENT: reports: No Symptoms Reported Respiratory: reports: Cough (off and on x 1 month. Non-producrive. Denies fever. ) Cardiac: reports: No Symptoms Reported GI: reports: Nausea, Abdominal cramping : reports: No Symptoms Reported Musculoskeletal: reports: Back Pain (radiates to (R) thigh. Intermittent dull pain. Currently "8". Laying in bed and walking makes it worse. Improves w/ pain pill.) Integumentary: reports: Other (Self scratches on hands -) Neuro: reports: Tremors Endocrine: reports: No Symptoms Reported Hematology: reports: No Symptoms Reported Psychiatric: reports: Orientated x3, Agitated, Anxious Patient History - Patient Medical History Hx Anemia: No Hx Asthma: No Hx Chronic Obstructive Pulmonary Disease (COPD): No Hx Cancer: No Hx Cardiac Disorders: No Hx Congestive Heart Failure: No Hx Hypertension: No Hx Hypercholesterolemia: No Hx Pacemaker: No HX Cerebrovascular Accident: No Hx Seizures: No Hx Diabetes: No Hx Gastrointestinal Disorders: No Hx Liver Disease: No Hx Genitourinary Disorders: No Hx Sexually Transmitted Disorders: No Hx Renal Disease (ESRD): No Hx Thyroid Disease: No Hx Human Immunodeficiency Virus (HIV): No Hx Hepatitis C: No Hx Depression: No Hx Suicide Attempt: No Hx Bipolar Disorder: No Hx Schizophrenia: No - Patient Surgical History Past Surgical History: No Hx Neurologic Surgery: No Hx Cataract Extraction: No Hx Cardiac Surgery: No Hx Lung Surgery: No Hx Breast Surgery: No Hx Breast Biopsy: No Hx Abdominal Surgery: No Hx Appendectomy: No Hx Cholecystectomy: No Hx Genitourinary Surgery: No Hx Section: No Hx Orthopedic Surgery: No Anesthesia Reaction: No - PPD History Previous Implant?: Yes Documented Results: Negative w/proof Implanted On Prior [facility] Admission?: Yes Date: 02/08/19 Results: 0 mm PPD to be Administered?: No - Smoking Cessation Smoking history: Current every day smoker Have you smoked in the past 12 months: Yes Aproximately how many cigarettes per day: 5 Cigars Per Day: 0 Hx Chewing Tobacco Use: No Initiated information on smoking cessation: Yes 'Breaking Loose' booklet given: 10/25/19 - Substance & Tx. History Hx Alcohol Use: Yes Hx Substance Use: Yes Substance Use Type: Alcohol, Cocaine, Heroin Hx Substance Use Treatment: Yes (detox, rehab, Subox) - Substances abused Heroin Substance route: Inhalation Frequency: Daily Amount used: 10 bags Age of first use: 19 Date of last use: 10/25/19 Alcohol Substance route: Oral Frequency: Daily Amount used: 6 pk beer Age of first use: 18 Date of last use: 10/24/19 Admission Physical Exam BHS - Vital Signs Vital Signs: Vital Signs - 24 hr 10/25/19 10/25/19 20:29 21:05 Temperature 98.0 F 98.0 F Pulse Rate 85 85 Respiratory 16 16 Rate Blood Pressure 106/68 106/68 - Physical General Appearance: Yes: Mild Distress, Thin, Irritable (and agitated.), Sweating (Increased facial moisture) HEENTM: Yes: EOMI (Jerking movement of eyes upon lateral gaze), Hearing grossly Normal, Normocephalic, Normal Voice, IAN (Pupils = 3 mm), Pharynx Normal, Nasal Congestion, Rhinorrhea, Other (Whitish mucous from punctum) Respiratory: Yes: Lungs Clear (Pulse ox = 98 %), Normal Breath Sounds, No Respiratory Distress Neck: Yes: No masses,lesions,Nodules, Supple Breast: Yes: Breast Exam Deferred Cardiology: Yes: Regular Rhythm, S1, S2, Bradycardia (HR: 58) Abdominal: Yes: Non Tender, Flat, Soft, Increased Bowel Sounds Genitourinary: Yes: Within Normal Limits Back: Yes: Normal Inspection Musculoskeletal: Yes: full range of Motion, Gait Steady Extremities: Yes: Normal Capillary Refill (Peripheral pulses +) Neurological: Yes: resume specialist II-XII NML intact (Jerking movement of eyes upon lateral gaze), Fully Oriented, Alert, Motor Strength 5/5, Normal Response (but yelling about waiting so long) Integumentary: Yes: Normal Color, Warm, Moist (Increased facial moisture) Lymphatic: Yes: Within Normal Limits - Diagnostic (1) Opioid dependence on agonist therapy Current Visit: Yes Status: Acute (2) Nasal congestion with rhinorrhea Current Visit: Yes Status: Acute (3) Underweight Current Visit: Yes Status: Chronic (4) Alcohol dependence with uncomplicated withdrawal Current Visit: Yes Status: Acute (5) Chronic back pain Current Visit: Yes Status: Chronic Qualifiers: Back pain location: back pain in unspecified location Back pain laterality : unspecified Qualified Code(s): M54.9 - Dorsalgia, unspecified; G89.29 - Other chronic pain (6) Cocaine dependence, uncomplicated Current Visit: Yes Status: Chronic (7) Nicotine dependence Current Visit: Yes Status: Chronic Qualifiers: Nicotine product type: cigarettes Substance use status: uncomplicated Qualified Code(s): F17.210 - Nicotine dependence, cigarettes, uncomplicated Cleared for Admission S - Detox or Rehab [facility] Level of Care: Medically Managed Detox Regimen/Protocol: Librium Claeared for Rehab Admission: No Breathalyzer - Breathalyzer Breathalyzer: 0 Urine Drug Screen - Test Device Lot number: [id number] Expiration date: 05/26/21 - Control Is test valid?: Yes - Results Drug screen NEGATIVE: No Urine drug screen results: SUPRIYA-Cocaine, FEN-Fentanyl, MOP-Opiates Inpatient Rehab Admission - Rehab Decision to Admit Inpatient rehab admission?: No
[2019-10-26] MEDS ORDERED: chlordiazePOXIDE HCL 10 MG CAPSULE PO PRN (00:04)
[2019-10-26] MEDS ORDERED: chlordiazePOXIDE HCL 25 MG CAPSULE PO ONE (00:04)
[2019-10-26] MEDS ORDERED: METHOCARBAMOL 500 MG TABLET PO PRN (00:06)
[2019-10-26] MEDS ORDERED: MAGNESIUM CITRATE 300 ML BOTTLE PO PRN (00:06)
[2019-10-26] MEDS ORDERED: MENTHOL/PHENOL 1 EACH UD MM PRN (00:06)
[2019-10-26] MEDS ORDERED: BISMUTH SUBSALICYLATE 524 MG/30 ML UD PO PRN (00:06)
[2019-10-26] MEDS ORDERED: MAG HYDROX/AL HYDROX/SIMETH 30 ML UNIT-DOSE CUP PO PRN (00:06)
[2019-10-26] MEDS ORDERED: MAGNESIUM HYDROX 2400MG/30ML ORAL SUSPENSION 30 ML CUP PO PRN (00:06)
[2019-10-26] MEDS ORDERED: ACETAMINOPHEN 325 MG TABLET (FP) PO PRN (00:06)
[2019-10-26] MEDS ORDERED: IBUPROFEN 400 MG TABLET (FP) PO PRN (00:06)
[2019-10-26] MEDS: MELATONIN 5 MG TABLETS PO PRN ×2 (01:40→21:06)
[2019-10-26] MEDS: P-EPHED 60MG/TRIPROLIDI 2.5MG TABLET PO SCH ×4 (01:45→21:06)
[2019-10-26] MEDS: chlordiazePOXIDE HCL 25 MG CAPSULE PO SCH ×3 (05:40→21:52)
--- NOTE | 2019-10-26 09:26 | PN ---
S CIWA - CIWA Score Nausea/Vomitin-No Nausea/No Vomiting Muscle Tremors: 2 Anxiety: 3 Agitation: 0-Normal Activity Paroxysmal Sweats: 3 Orientation: 0-Oriented Tacttile Disturbances: 0-None Auditory Disturbances: 0-None Visual Disturbances: 0-None Headache: 2-Mild CIWA-Ar Total Score: 10 BHS Progress Note (SOAP) Subjective: c/o chills, shakes, anxiety, and headache. Objective: 10/26/19 09:23 Vital Signs 10/26/19 06:25 Temperature 98.2 F Pulse Rate 77 Respiratory 18 Rate Blood Pressure 112/74 Labs pending. Assessment: 10/26/19 09:24 AOX3, in no respiratory distress. Full ROM, ambulating in the unit. Withdrawal symptoms. Plan: continue detox.
--- NOTE | 2019-10-26 10:14 | EKG ---
Test Reason : Blood Pressure : / mmHG Vent. Rate : 054 BPM Atrial Rate : 054 BPM P-R Int : 142 ms QRS Dur : 084 ms QT Int : 444 ms P-R-T Axes : 078 084 075 degrees QTc Int : 421 ms SINUS BRADYCARDIA SEPTAL INFARCT , AGE UNDETERMINED ABNORMAL ECG WHEN COMPARED WITH ECG OF 05-FEB-2019 17:45, VENT. RATE HAS DECREASED BY 34 BPM Confirmed by MD Maddie, Dimitri ([id number]) on 10/26/2019 10:13:53 AM Referred By: VERNON Confirmed By:Dimitri Perkins MD
[2019-10-26] MEDS: PRENATAL VITAMINS W/ FOLIC ACID TABLET (FP) PO SCH (10:36)
[2019-10-26] MEDS: BUPRENORPHINE/NALOXONE 8 MG/2 MG FILM PACKET SL SCH ×2 (10:36→21:06)
[2019-10-26] MEDS: ACETAMINOPHEN 325 MG TABLET (FP) PO PRN (10:49)
[2019-10-26 12:15] LABS: HEMATOCRIT 39.2 % (35.4-49); HEMOGLOBIN 12.8 GM/dL (11.7-16.9); MCH 27.8 pg (25.7-33.7); MCHC 32.8 g/dl (32.0-35.9); MEAN CELL VOLUME 84.9 fl (80-96); MEAN PLT VOLUME 7.5 fl (7.5-11.1); PLATELET COUNT 328 K/MM3 (134-434); RBC 4.62 M/mm3 (4.00-5.60); RDW 13.9 % (11.9-15.9)
[2019-10-26 12:23] LABS: ALBUMIN 2.8 g/dl (3.4-5.0); BILIRUBIN,TOTAL 0.4 mg/dL (0.2-1); BLOOD UREA NITROGEN 16.9 mg/dL (7-18); CALCIUM 8.4 mg/dL (8.5-10.1); CREATININE 0.9 mg/dL (0.55-1.3); POTASSIUM 4.1 mmol/L (3.5-5.1); TOT PROT 5.7 g/dl (6.4-8.2)
[2019-10-26] MEDS ORDERED: cloNIDine HCL 0.1 MG TABLET PO PRN (18:58)
--- NOTE | 2019-10-26 18:59 | PN ---
BHS Progress Note Note: pt refusing to take librium
[2019-10-26] MEDS: THIAMINE HCL 100 MG TABLET (FP) PO SCH (21:06)
[2019-10-27] MEDS ORDERED: chlordiazePOXIDE 5 MG CAPSULE PO SCH (05:00)
[2019-10-27] MEDS: P-EPHED 60MG/TRIPROLIDI 2.5MG TABLET PO SCH ×3 (06:22→22:16)
[2019-10-27] MEDS ORDERED: LORazepam 1 MG TABLET PO PRN (09:21)
--- NOTE | 2019-10-27 09:26 | PN ---
S CIWA - CIWA Score Nausea/Vomitin Muscle Tremors: 2 Anxiety: 2 Agitation: 2 Paroxysmal Sweats: 1-Minimal Palms Moist Orientation: 0-Oriented Tacttile Disturbances: 1-Very Mild Itch/Numbness Auditory Disturbances: 0-None Visual Disturbances: 0-None Headache: 1-Very Mild CIWA-Ar Total Score: 11 S Progress Note (SOAP) Subjective: alert,irritable,anxious,interrupted sleep,pain in the body Objective: 10/27/19 09:28 Vital Signs Temperature 97.7 F 10/27/19 06:18 Pulse Rate 64 10/27/19 06:18 Respiratory Rate 18 10/27/19 06:18 Blood Pressure 117/70 10/27/19 06:18 O2 Sat by Pulse Oximetry (%) Laboratory Last Values WBC 4.0 K/mm3 (4.0-10.0) 10/26/19 07:00 RBC 4.62 M/mm3 (4.00-5.60) 10/26/19 07:00 Hgb 12.8 GM/dL (11.7-16.9) 10/26/19 07:00 Hct 39.2 % (35.4-49) 10/26/19 07:00 MCV 84.9 fl (80-96) 10/26/19 07:00 MCH 27.8 pg (25.7-33.7) 10/26/19 07:00 MCHC 32.8 g/dl (32.0-35.9) 10/26/19 07:00 RDW 13.9 % (11.9-15.9) 10/26/19 07:00 Plt Count 328 K/MM3 (134-434) 10/26/19 07:00 MPV 7.5 fl (7.5-11.1) 10/26/19 07:00 Sodium 142 mmol/L (136-145) 10/26/19 07:00 Potassium 4.1 mmol/L (3.5-5.1) 10/26/19 07:00 Chloride 110 mmol/L (98-107) H 10/26/19 07:00 Carbon Dioxide 25 mmol/L (21-32) 10/26/19 07:00 Anion Gap 7 MMOL/L (8-16) L 10/26/19 07:00 BUN 16.9 mg/dL (7-18) 10/26/19 07:00 Creatinine 0.9 mg/dL (0.55-1.3) 10/26/19 07:00 Est GFR (CKD-EPI)AfAm 115.83 10/26/19 07:00 Est GFR (CKD-EPI)NonAf 99.94 10/26/19 07:00 Random Glucose 90 mg/dL (74-106) 10/26/19 07:00 Calcium 8.4 mg/dL (8.5-10.1) L 10/26/19 07:00 Total Bilirubin 0.4 mg/dL (0.2-1) 10/26/19 07:00 AST 18 U/L (15-37) 10/26/19 07:00 ALT 24 U/L (13-61) 10/26/19 07:00 Alkaline Phosphatase 80 U/L (45-117) 10/26/19 07:00 Total Protein 5.7 g/dl (6.4-8.2) L 10/26/19 07:00 Albumin 2.8 g/dl (3.4-5.0) L 10/26/19 07:00 Assessment: 10/27/19 09:29 withdrawal symptom Plan: continue detox,regimen changed to ativan by patient request
[2019-10-27] MEDS: BUPRENORPHINE/NALOXONE 8 MG/2 MG FILM PACKET SL SCH ×2 (10:14→22:16)
[2019-10-27] MEDS: PRENATAL VITAMINS W/ FOLIC ACID TABLET (FP) PO SCH (10:14)
[2019-10-27] MEDS: LORazepam 2 MG TABLET PO SCH ×3 (10:14→22:16)
[2019-10-27] MEDS: THIAMINE HCL 100 MG TABLET (FP) PO SCH (22:16)
[2019-10-27] MEDS: MELATONIN 5 MG TABLETS PO PRN (22:17)
[2019-10-28] MEDS ORDERED: chlordiazePOXIDE HCL 10 MG CAPSULE PO PRN
[2019-10-28] MEDS ORDERED: chlordiazePOXIDE HCL 10 MG CAPSULE PO SCH (05:00)
[2019-10-28] MEDS: LORazepam 2 MG TABLET PO SCH ×4 (06:09→22:12)
--- NOTE | 2019-10-28 09:42 | PN ---
S CIWA - CIWA Score Nausea/Vomitin-No Nausea/No Vomiting Muscle Tremors: None Anxiety: 3 Agitation: 0-Normal Activity Paroxysmal Sweats: 3 Orientation: 0-Oriented Tacttile Disturbances: 0-None Auditory Disturbances: 0-None Visual Disturbances: 0-None Headache: 2-Mild CIWA-Ar Total Score: 8 BHS Progress Note (SOAP) Subjective: c/o headache, sweats, and anxiety. Objective: 10/28/19 09:39 Vital Signs 10/28/19 10/28/19 10/28/19 03:30 07:05 09:22 Temperature 97.9 F 97.9 F Pulse Rate 70 77 Respiratory 18 18 18 Rate Blood Pressure 113/81 124/69 Laboratory Last Values WBC 4.0 K/mm3 (4.0-10.0) 10/26/19 07:00 RBC 4.62 M/mm3 (4.00-5.60) 10/26/19 07:00 Hgb 12.8 GM/dL (11.7-16.9) 10/26/19 07:00 Hct 39.2 % (35.4-49) 10/26/19 07:00 MCV 84.9 fl (80-96) 10/26/19 07:00 MCH 27.8 pg (25.7-33.7) 10/26/19 07:00 MCHC 32.8 g/dl (32.0-35.9) 10/26/19 07:00 RDW 13.9 % (11.9-15.9) 10/26/19 07:00 Plt Count 328 K/MM3 (134-434) 10/26/19 07:00 MPV 7.5 fl (7.5-11.1) 10/26/19 07:00 Sodium 142 mmol/L (136-145) 10/26/19 07:00 Potassium 4.1 mmol/L (3.5-5.1) 10/26/19 07:00 Chloride 110 mmol/L (98-107) H 10/26/19 07:00 Carbon Dioxide 25 mmol/L (21-32) 10/26/19 07:00 Anion Gap 7 MMOL/L (8-16) L 10/26/19 07:00 BUN 16.9 mg/dL (7-18) 10/26/19 07:00 Creatinine 0.9 mg/dL (0.55-1.3) 10/26/19 07:00 Est GFR (CKD-EPI)AfAm 115.83 10/26/19 07:00 Est GFR (CKD-EPI)NonAf 99.94 10/26/19 07:00 Random Glucose 90 mg/dL (74-106) 10/26/19 07:00 Calcium 8.4 mg/dL (8.5-10.1) L 10/26/19 07:00 Total Bilirubin 0.4 mg/dL (0.2-1) 10/26/19 07:00 AST 18 U/L (15-37) 10/26/19 07:00 ALT 24 U/L (13-61) 10/26/19 07:00 Alkaline Phosphatase 80 U/L (45-117) 10/26/19 07:00 Total Protein 5.7 g/dl (6.4-8.2) L 10/26/19 07:00 Albumin 2.8 g/dl (3.4-5.0) L 10/26/19 07:00 Labs noted. Assessment: 10/28/19 09:40 AOX3, in no acute respiratory distress. Full ROM, ambulating in the unit. Withdrawal symptoms. Plan: continue detox. Increase fluids.
[2019-10-28] MEDS: BUPRENORPHINE/NALOXONE 8 MG/2 MG FILM PACKET SL SCH ×2 (10:13→22:12)
[2019-10-28] MEDS: PRENATAL VITAMINS W/ FOLIC ACID TABLET (FP) PO SCH (10:13)
[2019-10-28 10:19] LABS: URINE APPEARANCE CLEAR; URINE BILIRUBIN NEGATIVE (NEGATIVE); URINE COLOR YELLOW; URINE GLUCOSE (UA) NEGATIVE (NEGATIVE); URINE KETONE NEGATIVE (NEGATIVE); URINE LEUK ESTERASE NEGATIVE (NEGATIVE); URINE NITRITE NEGATIVE (NEGATIVE); URINE PROTEIN NEGATIVE (NEGATIVE); URINE UROBILINOGEN 0.2 mg/dL (0.2-1.0)
[2019-10-28] MEDS: ACETAMINOPHEN 325 MG TABLET (FP) PO PRN (14:41)
[2019-10-28] MEDS: THIAMINE HCL 100 MG TABLET (FP) PO SCH (22:12)
[2019-10-29] MEDS ORDERED: chlordiazePOXIDE HCL 10 MG CAPSULE PO ONE (05:00)
[2019-10-29] MEDS: ACETAMINOPHEN 325 MG TABLET (FP) PO PRN (05:04)
[2019-10-29] MEDS: LORazepam 1 MG TABLET PO SCH ×2 (05:05→10:39)
--- NOTE | 2019-10-29 08:35 | DS ---
[facility] Detox Discharge Summary Admission Date: 10/25/19 Discharge Date: 10/29/19 - History Present History: Alcohol Dependence, Cocaine Dependence, Opioid Dependence - Physical Exam Results Vital Signs: Vital Signs Temperature 97.9 F 10/29/19 06:00 Pulse Rate 88 10/29/19 07:48 Respiratory Rate 20 10/29/19 06:00 Blood Pressure 125/66 10/29/19 07:48 O2 Sat by Pulse Oximetry (%) - Treatment Hospital Course: Detox Protocol Followed, Detoxed Safely, Responded well, Discharged Condition Good Patient has Accepted a Rehab Referral to: Keri Bowers JR - Medication Discharge Medications: Ambulatory Orders Buprenorphine HCl/Naloxone HCl [Suboxone 8 mg-2 mg Sl Tablets] 1 strip SL BID - Diagnosis (1) Alcohol dependence with uncomplicated withdrawal Current Visit: Yes Status: Chronic (2) Opioid dependence on agonist therapy Current Visit: Yes Status: Chronic (3) Chronic back pain Current Visit: Yes Status: Chronic Qualifiers: Back pain location: back pain in unspecified location Back pain laterality : unspecified Qualified Code(s): M54.9 - Dorsalgia, unspecified; G89.29 - Other chronic pain (4) Cocaine dependence, uncomplicated Current Visit: Yes Status: Chronic (5) Nicotine dependence Current Visit: Yes Status: Chronic Qualifiers: Nicotine product type: cigarettes Substance use status: uncomplicated Qualified Code(s): F17.210 - Nicotine dependence, cigarettes, uncomplicated (6) Cocaine dependence Current Visit: Yes Status: Chronic Qualifiers: Substance use status: uncomplicated Qualified Code(s): F14.20 - Cocaine dependence, uncomplicated - AMA Did Patient Leave Against Medical Advice: No
[2019-10-29] MEDS: BUPRENORPHINE/NALOXONE 8 MG/2 MG FILM PACKET SL SCH (10:39)
[2019-10-29] MEDS: PRENATAL VITAMINS W/ FOLIC ACID TABLET (FP) PO SCH (10:39)
--- NOTE | 2019-10-29 12:06 | PN ---
S Progress Note Note: Pt changed his mind doesn't want early d/c to go to rehab. States he's stayin g till tomorrow his regular d/c date.
[2019-10-29 13:14] VITALS: BP 122/73; PULSE 74; TEMP 98.1
--- NOTE | 2019-10-29 14:35 | PN ---
S Progress Note Note: Pt reconsidered and now wants to go to rehab. D/C order written.
[2019-10-30] MEDS ORDERED: LORazepam 0.5 MG TABLET PO PRN
[2019-10-30] MEDS ORDERED: LORazepam 0.5 MG TABLET PO SCH (05:00)
[2019-10-31] MEDS ORDERED: LORazepam 0.5 MG TABLET PO ONE (05:00)
== END 2019-10-29 15:05 | disposition other institution (70) | DRG 773 ==
LOC: YASAS 19:37 → Y6N 23:58
PROVIDERS: ADMIT Allergy & Immunology; ATTEND Allergy & Immunology
PROC: HZ2ZZZZ Detoxification Services for Substance Abuse Treatment (ICD-10-PCS; principal; 2019-10-25)
DX: F10.230 Alcohol dependence with withdrawal, uncomplicated (principal); F11.20 Opioid dependence, uncomplicated; F14.20 Cocaine dependence, uncomplicated; F17.210 Nicotine dependence, cigarettes, uncomplicated; M54.9 Dorsalgia, unspecified; G89.29 Other chronic pain; R00.1 Bradycardia, unspecified; R09.81 Nasal congestion; R63.6 Underweight; Z68.21 Body mass index [BMI] 21.0-21.9, adult; Z91.013 Allergy to seafood
CPT/HCPCS: 36415; 80053; 81003; 85027; 93005; 93010; J0735

== ENCOUNTER 2019-10-29 15:14 | Inpatient (IN) | payer OTHER ==
--- NOTE | 2019-10-29 15:19 | HP ---
[facility] Rehab Assess/Revision - Admission History Admitted to Rehab from: [facility] Date of Admission to Rehab: 10/29/2019 - Findings Detox History & Physical reviewed: Yes Concur with findings: Yes Inpatient Rehab Admission - Rehab Decision to Admit Inpatient rehab admission?: Yes - Initial Determination Are CD services needed?: Yes Free of communicable disease: Yes Not in need of hospitalization: Yes - Rehab Admission Criteria Previous failed treatment: Yes Poor recovery environment: Yes Comorbidities: No Lacks judgement: Yes Patient is meeting Inpatient Rehab admission criteria:: Yes
[2019-10-29] MEDS ORDERED: LOPERAMIDE HCL 2 MG CAPSULE PO PRN (15:22)
[2019-10-29] MEDS ORDERED: P-EPHED 60MG/TRIPROLIDI 2.5MG TABLET PO PRN (15:22)
[2019-10-29] MEDS ORDERED: MAGNESIUM HYDROX 2400MG/30ML ORAL SUSPENSION 30 ML CUP PO PRN (15:22)
[2019-10-29] MEDS ORDERED: MAG HYDROX/AL HYDROX/SIMETH 30 ML UNIT-DOSE CUP PO PRN (15:22)
[2019-10-29] MEDS ORDERED: hydrOXYzine PAMOATE 50 MG CAPSULE (FP) PO PRN (15:22)
[2019-10-29] MEDS ORDERED: MAGNESIUM CITRATE 300 ML BOTTLE PO PRN (15:22)
[2019-10-29] MEDS ORDERED: guaiFENesin 200 MG/10 ML 10 ML UNIT-DOSE CUPS PO PRN (15:22)
[2019-10-29] MEDS ORDERED: IBUPROFEN 400 MG TABLET (FP) PO PRN (15:22)
[2019-10-29] MEDS ORDERED: MENTHOL/PHENOL 1 EACH UD MM PRN (15:22)
--- NOTE | 2019-10-29 16:02 | PN ---
[facility] Progress Note Note: Patient admitted to rehab today for alcohol/opiod/cocaine dependence from [address] [place] [address]. Patient denies hx of mental illness but c/o feeling depressed. Denies SI/ HI. On Suboxone MAT 8mg sl BID ( Outpatient program project renewal). Detox labs reviewed. V/S WNL. Vital Signs (72 hours) 10/29/19 15:35 Temperature 98.3 F Pulse Rate 83 Respiratory 18 Rate Blood Pressure 131/78 A/P alcohol/cocaine/opiod dependence suboxone MAT Continue with Rehab services Psych consult
[2019-10-29] MEDS: THIAMINE HCL 100 MG TABLET (FP) PO SCH (21:46)
[2019-10-29] MEDS: MELATONIN 5 MG TABLETS PO PRN (21:46)
[2019-10-29] MEDS: BUPRENORPHINE/NALOXONE 8 MG/2 MG FILM PACKET SL SCH (21:46)
[2019-10-30] MEDS: PRENATAL VITAMINS W/ FOLIC ACID TABLET (FP) PO SCH (10:10)
[2019-10-30] MEDS: BUPRENORPHINE/NALOXONE 8 MG/2 MG FILM PACKET SL SCH ×2 (10:10→22:00)
--- NOTE | 2019-10-30 15:50 | CONSULT ---
[facility] Psychiatric Consult - Data Date of interview: 10/30/19 Admission source: [facility] Identifying data: Patient is approached for psychiatric evaluation. Mr Leon declines. " I will see the psychiatrist on Friday. I am too tired to talk now. I need my rest." Statements reported by nurse Iverson.
[2019-10-30] MEDS: THIAMINE HCL 100 MG TABLET (FP) PO SCH (21:59)
[2019-10-30] MEDS: MELATONIN 5 MG TABLETS PO PRN (21:59)
[2019-10-30] MEDS ORDERED: PT OWN MED DRAWER 7, Y5N ONE (23:24)
[2019-10-31] MEDS: BUPRENORPHINE/NALOXONE 8 MG/2 MG FILM PACKET SL SCH ×2 (09:51→21:45)
[2019-10-31] MEDS: PRENATAL VITAMINS W/ FOLIC ACID TABLET (FP) PO SCH (09:51)
[2019-10-31] MEDS: THIAMINE HCL 100 MG TABLET (FP) PO SCH (21:45)
[2019-10-31] MEDS: MELATONIN 5 MG TABLETS PO PRN (21:45)
[2019-11-01] MEDS: PRENATAL VITAMINS W/ FOLIC ACID TABLET (FP) PO SCH (10:21)
[2019-11-01] MEDS: BUPRENORPHINE/NALOXONE 8 MG/2 MG FILM PACKET SL SCH ×2 (10:22→21:44)
[2019-11-01] MEDS: MELATONIN 5 MG TABLETS PO PRN (21:43)
[2019-11-01] MEDS: THIAMINE HCL 100 MG TABLET (FP) PO SCH (21:43)
[2019-11-02] MEDS: BUPRENORPHINE/NALOXONE 8 MG/2 MG FILM PACKET SL SCH ×2 (10:39→21:01)
[2019-11-02] MEDS: PRENATAL VITAMINS W/ FOLIC ACID TABLET (FP) PO SCH (10:39)
[2019-11-02] MEDS: MELATONIN 5 MG TABLETS PO PRN (21:00)
[2019-11-02] MEDS: THIAMINE HCL 100 MG TABLET (FP) PO SCH (21:00)
[2019-11-03] MEDS: ACETAMINOPHEN 325 MG TABLET (FP) PO PRN (09:59)
[2019-11-03] MEDS: PRENATAL VITAMINS W/ FOLIC ACID TABLET (FP) PO SCH (09:59)
[2019-11-03] MEDS: BUPRENORPHINE/NALOXONE 8 MG/2 MG FILM PACKET SL SCH ×2 (09:59→21:02)
--- NOTE | 2019-11-03 10:53 | PN ---
S Progress Note Note: Vital Signs Temperature 98.1 F 11/03/19 06:00 Pulse Rate 64 11/03/19 06:00 Respiratory Rate 18 11/03/19 06:00 Blood Pressure 109/69 11/03/19 06:00 O2 Sat by Pulse Oximetry (%) c/o of right lateral jaw pain on palpation, which started today no parenthesia or changes in ROM Patient Aox3 no acute distress EENT WNL, + multiple caries, non-tender no adventitious breath sounds dentalgia gabapentin TID PRN for pain ibuprofen prn for pain continue to monitor for worsening symptoms
[2019-11-03] MEDS: GABAPENTIN 100 MG CAPSULE PO PRN ×2 (14:33→21:01)
[2019-11-03] MEDS: MELATONIN 5 MG TABLETS PO PRN (21:00)
[2019-11-03] MEDS: THIAMINE HCL 100 MG TABLET (FP) PO SCH (21:00)
[2019-11-04] MEDS: PRENATAL VITAMINS W/ FOLIC ACID TABLET (FP) PO SCH (10:04)
[2019-11-04] MEDS: BUPRENORPHINE/NALOXONE 8 MG/2 MG FILM PACKET SL SCH ×2 (10:04→21:01)
[2019-11-04] MEDS: GABAPENTIN 100 MG CAPSULE PO PRN ×2 (10:05→17:52)
[2019-11-04] MEDS: MELATONIN 5 MG TABLETS PO PRN (21:00)
[2019-11-04] MEDS: THIAMINE HCL 100 MG TABLET (FP) PO SCH (21:00)
[2019-11-05] MEDS: PRENATAL VITAMINS W/ FOLIC ACID TABLET (FP) PO SCH (10:29)
[2019-11-05] MEDS: BUPRENORPHINE/NALOXONE 8 MG/2 MG FILM PACKET SL SCH ×2 (10:30→21:27)
[2019-11-05] MEDS: ACETAMINOPHEN 325 MG TABLET (FP) PO PRN ×2 (12:46→21:27)
--- NOTE | 2019-11-05 13:01 | PN ---
S Progress Note Note: Patient c/o soreness to right side of neck. Afebrile, no visible swelling, redness to area. Neck supple,no jvd. Will continue to monitor clinically. Vital Signs Temperature 97.9 F 11/05/19 06:32 Pulse Rate 53 L 11/05/19 06:32 Respiratory Rate 16 11/05/19 06:32 Blood Pressure 114/68 11/05/19 06:32 O2 Sat by Pulse Oximetry (%)
[2019-11-05] MEDS: THIAMINE HCL 100 MG TABLET (FP) PO SCH (21:26)
[2019-11-05] MEDS: MELATONIN 5 MG TABLETS PO PRN (21:28)
[2019-11-06] MEDS: BUPRENORPHINE/NALOXONE 8 MG/2 MG FILM PACKET SL SCH ×2 (10:15→21:05)
[2019-11-06] MEDS: PRENATAL VITAMINS W/ FOLIC ACID TABLET (FP) PO SCH (10:15)
[2019-11-06] MEDS: MELATONIN 5 MG TABLETS PO PRN (21:04)
[2019-11-06] MEDS: THIAMINE HCL 100 MG TABLET (FP) PO SCH (21:04)
[2019-11-07] MEDS: BUPRENORPHINE/NALOXONE 8 MG/2 MG FILM PACKET SL SCH ×2 (10:21→21:04)
[2019-11-07] MEDS: PRENATAL VITAMINS W/ FOLIC ACID TABLET (FP) PO SCH (10:21)
[2019-11-07] MEDS: ACETAMINOPHEN 325 MG TABLET (FP) PO PRN (10:22)
[2019-11-07] MEDS: THIAMINE HCL 100 MG TABLET (FP) PO SCH (21:03)
[2019-11-07] MEDS: MELATONIN 5 MG TABLETS PO PRN (21:03)
[2019-11-08] MEDS: BUPRENORPHINE/NALOXONE 8 MG/2 MG FILM PACKET SL SCH ×2 (09:45→21:48)
[2019-11-08] MEDS: PRENATAL VITAMINS W/ FOLIC ACID TABLET (FP) PO SCH (09:45)
[2019-11-08] MEDS: MELATONIN 5 MG TABLETS PO PRN (21:48)
[2019-11-08] MEDS: THIAMINE HCL 100 MG TABLET (FP) PO SCH (21:48)
[2019-11-09] MEDS: BUPRENORPHINE/NALOXONE 8 MG/2 MG FILM PACKET SL SCH ×2 (09:56→21:02)
[2019-11-09] MEDS: PRENATAL VITAMINS W/ FOLIC ACID TABLET (FP) PO SCH (09:56)
[2019-11-09] MEDS: THIAMINE HCL 100 MG TABLET (FP) PO SCH (21:01)
[2019-11-09] MEDS: MELATONIN 5 MG TABLETS PO PRN (21:01)
[2019-11-10] MEDS: BUPRENORPHINE/NALOXONE 8 MG/2 MG FILM PACKET SL SCH ×2 (09:45→21:33)
[2019-11-10] MEDS: ACETAMINOPHEN 325 MG TABLET (FP) PO PRN (09:45)
[2019-11-10] MEDS: PRENATAL VITAMINS W/ FOLIC ACID TABLET (FP) PO SCH (09:45)
[2019-11-10] MEDS: MELATONIN 5 MG TABLETS PO PRN (21:31)
[2019-11-10] MEDS: THIAMINE HCL 100 MG TABLET (FP) PO SCH (21:31)
[2019-11-11] MEDS: PRENATAL VITAMINS W/ FOLIC ACID TABLET (FP) PO SCH (09:44)
[2019-11-11] MEDS: BUPRENORPHINE/NALOXONE 8 MG/2 MG FILM PACKET SL SCH ×2 (09:44→21:00)
[2019-11-11] MEDS: ACETAMINOPHEN 325 MG TABLET (FP) PO PRN (10:39)
[2019-11-11] MEDS: VITAMINS A AND D TOPICAL OINTMENT 60 GM TUBE TP SCH ×3 (12:36→23:16)
[2019-11-11] MEDS: MELATONIN 5 MG TABLETS PO PRN (21:00)
[2019-11-11] MEDS: THIAMINE HCL 100 MG TABLET (FP) PO SCH (21:00)
[2019-11-12] MEDS: VITAMINS A AND D TOPICAL OINTMENT 60 GM TUBE TP SCH ×4 (07:13→23:29)
[2019-11-12] MEDS: PRENATAL VITAMINS W/ FOLIC ACID TABLET (FP) PO SCH (10:03)
[2019-11-12] MEDS: BUPRENORPHINE/NALOXONE 8 MG/2 MG FILM PACKET SL SCH ×2 (10:03→21:29)
[2019-11-12] MEDS: ACETAMINOPHEN 325 MG TABLET (FP) PO PRN (10:04)
[2019-11-12] MEDS: MELATONIN 5 MG TABLETS PO PRN (21:28)
[2019-11-12] MEDS: THIAMINE HCL 100 MG TABLET (FP) PO SCH (21:28)
[2019-11-13] MEDS: VITAMINS A AND D TOPICAL OINTMENT 60 GM TUBE TP SCH ×3 (06:00→17:51)
[2019-11-13] MEDS: PRENATAL VITAMINS W/ FOLIC ACID TABLET (FP) PO SCH (10:52)
[2019-11-13] MEDS: BUPRENORPHINE/NALOXONE 8 MG/2 MG FILM PACKET SL SCH ×2 (10:52→21:36)
[2019-11-13] MEDS: MELATONIN 5 MG TABLETS PO PRN (21:36)
[2019-11-13] MEDS: THIAMINE HCL 100 MG TABLET (FP) PO SCH (21:36)
[2019-11-14] MEDS: VITAMINS A AND D TOPICAL OINTMENT 60 GM TUBE TP SCH ×5 (00:57→23:36)
[2019-11-14] MEDS: PRENATAL VITAMINS W/ FOLIC ACID TABLET (FP) PO SCH (09:56)
[2019-11-14] MEDS: BUPRENORPHINE/NALOXONE 8 MG/2 MG FILM PACKET SL SCH ×2 (09:57→21:45)
[2019-11-14] MEDS: MELATONIN 5 MG TABLETS PO PRN (21:45)
[2019-11-14] MEDS: THIAMINE HCL 100 MG TABLET (FP) PO SCH (21:45)
[2019-11-15] MEDS: VITAMINS A AND D TOPICAL OINTMENT 60 GM TUBE TP SCH ×4 (07:09→23:24)
[2019-11-15] MEDS: BUPRENORPHINE/NALOXONE 8 MG/2 MG FILM PACKET SL SCH ×2 (10:19→21:00)
[2019-11-15] MEDS: PRENATAL VITAMINS W/ FOLIC ACID TABLET (FP) PO SCH (10:19)
[2019-11-15] MEDS: MELATONIN 5 MG TABLETS PO PRN (21:00)
[2019-11-15] MEDS: THIAMINE HCL 100 MG TABLET (FP) PO SCH (21:00)
[2019-11-16] MEDS: VITAMINS A AND D TOPICAL OINTMENT 60 GM TUBE TP SCH (06:29)
[2019-11-16 06:36] VITALS: BP 104/66; PULSE 59; TEMP 97.9
[2019-11-16] MEDS: PRENATAL VITAMINS W/ FOLIC ACID TABLET (FP) PO SCH (09:01)
[2019-11-16] MEDS: BUPRENORPHINE/NALOXONE 8 MG/2 MG FILM PACKET SL SCH (09:01)
== END 2019-11-16 09:07 | disposition home or self-care (01) | DRG 772 ==
LOC: YASAS 15:14 → Y3W 15:15
PROVIDERS: ADMIT Neuromusculoskeletal Medicine & OMM; ATTEND Neuromusculoskeletal Medicine & OMM
PROC: HZ42ZZZ Group Counseling for Substance Abuse Treatment, Cognitive-Behavioral (ICD-10-PCS; principal; 2019-10-29)
DX: F11.20 Opioid dependence, uncomplicated (principal); F10.20 Alcohol dependence, uncomplicated; F14.20 Cocaine dependence, uncomplicated; F17.210 Nicotine dependence, cigarettes, uncomplicated; K06.9 Disorder of gingiva and edentulous alveolar ridge, unspecified; M54.2 Cervicalgia; M54.5 Low back pain; G89.29 Other chronic pain; R63.6 Underweight; Z68.21 Body mass index [BMI] 21.0-21.9, adult

== ENCOUNTER 2020-05-14 16:43 | Inpatient (IN) | payer OTHER ==
--- NOTE | 2020-05-14 18:11 | BHS.RME ---
Substance Use & Tx History - Substance Use History Heroin Substance amount: 7 bags heroin Frequency of use: Daily Substance route: Inhalation (ex: sniffing or snorting) Date of Last Use: 05/13/20 Alcohol Substance amount: 6 packs of 24 ozs of beer Frequency of use: Daily Substance route: Oral Date of Last Use: 05/13/20 Cocaine-Crack Substance amount: 80$ Frequency of use: More than 3 times per week Substance route: Smoking Date of Last Use: 05/12/20 - Last Treatment Date of last treatment: project renewal in not completed Where was last treatment: Detox Physical/Psych/Mental Status - Behavior Eye Contact: Normal Other Behaviors: Mannerisms - Cooperativeness Cooperativeness: Cooperative - Thinking Thought Processes: Logical Thought content: Future oriented - Physical Health Problems Is patient presently having any pain?: No Does patient presently have any injuries (include location): No Does patient currently have a fever: No COWS - Scale Resting Pulse: 0= ID 80 or Below Sweatin= Chills/Flushing Restless Observation: 3= Extraneous Movement Pupil Size: 1= Pupils >than Normal Bone or Joint Aches: 2= Severe Diffuse Aches Runny Nose/ Eye Tearin= Runny Nose/Eyes GI Upset > 30mins: 2= Nausea/Diarrhea Tremor Observation: 2= Slight Tremor Visible Yawning Observation: 1= 1-2x During Session Anxiety or Irritability: 2=Irritable/Anxious Goose Flesh Skin: 0=Smooth Skin COWS Score: 16 CIWA Nausea/Vomitin Muscle Tremors: 3 Anxiety: 3 Agitation: 3 Paroxysmal Sweats: 1-Minimal Palms Moist Orientation: 0-Oriented Tacttile Disturbances: 1-Very Mild Itch/Numbness Auditory Disturbances: 0-None Visual Disturbances: 0-None Headache: 2-Mild CIWA-Ar Total Score: 15
--- NOTE | 2020-05-14 18:18 | HP ---
COWS - Scale Resting Pulse: 0= [place] 80 or Below Sweatin= Chills/Flushing Restless Observation: 3= Extraneous Movement Pupil Size: 1= Pupils >than Normal Bone or Joint Aches: 2= Severe Diffuse Aches Runny Nose/ Eye Tearin= Runny Nose/Eyes GI Upset > 30mins: 2= Nausea/Diarrhea Tremor Observation: 2= Slight Tremor Visible Yawning Observation: 1= 1-2x During Session Anxiety or Irritability: 2=Irritable/Anxious Goose Flesh Skin: 0=Smooth Skin COWS Score: 16 CIWA Score Nausea/Vomitin Muscle Tremors: 3 Anxiety: 3 Agitation: 3 Paroxysmal Sweats: 1-Minimal Palms Moist Orientation: 0-Oriented Tacttile Disturbances: 1-Very Mild Itch/Numbness Auditory Disturbances: 0-None Visual Disturbances: 0-None Headache: 2-Mild CIWA-Ar Total Score: 15 - Admission Criteria [facility]ASAS Guidelines: Admission for Medically Managed Detox: Requires at least one of the followin. CIWA greater than 12 2. Seizures within the past 24 hours 3. Delirium tremens within the past 24 hours 4. Hallucinations within the past 24 hours 5. Acute intervention needed for co occurring medical disorder 6. Acute intervention needed for co occurring psychiatric disorder 7. Severe withdrawal that cannot be handled at a lower level of care (continued vomiting, continued diarrhea, abnormal vital signs) requiring intravenous medication and/or fluids 8. Admitting History and Physical - Admission Chief Complaint: i need help to stop usingd heroin,alcohol,,and cociane History of Present Illness: this 49 years old male with heroin,alcohol and cocaine dependence seeking detox,withdrawal symptom, last admission project renew History Source: Patient Limitations to Obtaining History: No Limitations - Smoking History Smoking history: Current every day smoker Have you smoked in the past 12 months: Yes Aproximately how many cigarettes per day: 10 - Alcohol/Substance Use Hx Alcohol Use: Yes Admission ROS BHS - HPI Chief Complaint: i need help to stop using heroin,alcohol,cocaine Allergies/Adverse Reactions: Allergies Allergy/AdvReac Type Severity Reaction Status Date / Time fish derived Allergy Verified 05/14/20 19:26 History of Present Illness: this 49 years old male with heroin,alcohol ,cocaine dependence seeking detox, multiple admissions in detox,last 02/2020 project renewal unemployed on disability no legal issue longest sobriety 1 year 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 Exam Limitations: No Limitations - Ebola screening Have you traveled outside of the country in the last 21 days: No Have you been sick,other than usual withdrawal symptoms: No Do you have a fever: No - Review of Systems Constitutional: Malaise, Night Sweats, Unexplained wgt Loss EENT: reports: No Symptoms Reported Respiratory: reports: No Symptoms reported Cardiac: reports: No Symptoms Reported GI: reports: Nausea, Vomiting, Abdominal cramping : reports: No Symptoms Reported Musculoskeletal: reports: Back Pain, Muscle Pain Integumentary: reports: Dryness Neuro: reports: Tremors Endocrine: reports: No Symptoms Reported Hematology: reports: No Symptoms Reported Psychiatric: reports: No Sypmtoms Reported, Judgement Intact, Mood/Affect Appropiate, Orientated x3, Anxious, Depressed, other (insomnia) Other Systems: Reviewed and Negative Patient History - Patient Medical History Hx Anemia: No Hx Asthma: No Hx Chronic Obstructive Pulmonary Disease (COPD): No Hx Cancer: No Hx Cardiac Disorders: No Hx Congestive Heart Failure: No Hx Hypertension: No Hx Hypercholesterolemia: No Hx Pacemaker: No HX Cerebrovascular Accident: No Hx Seizures: No Hx Diabetes: No Hx Gastrointestinal Disorders: No Hx Liver Disease: No Hx Genitourinary Disorders: No Hx Sexually Transmitted Disorders: No Hx Renal Disease (ESRD): No Hx Thyroid Disease: No Hx Human Immunodeficiency Virus (HIV): No (10/2019 negative) Hx Hepatitis C: No Hx Depression: No Hx Suicide Attempt: No Hx Bipolar Disorder: No Hx Schizophrenia: No Other Medical History: no suicidal,no homicidal - Patient Surgical History Past Surgical History: No Hx Neurologic Surgery: No Hx Cataract Extraction: No Hx Cardiac Surgery: No Hx Lung Surgery: No Hx Breast Surgery: No Hx Breast Biopsy: No Hx Abdominal Surgery: No Hx Appendectomy: No Hx Cholecystectomy: No Hx Genitourinary Surgery: No Hx Section: No Hx Orthopedic Surgery: No Anesthesia Reaction: No - PPD History Previous Implant?: Yes Documented Results: Negative w/o proof Implanted On Prior R Admission?: Yes Date: 02/08/19 Results: 0 mm PPD to be Administered?: Yes - Smoking Cessation Smoking history: Current every day smoker Have you smoked in the past 12 months: Yes Aproximately how many cigarettes per day: 10 Cigars Per Day: 0 Hx Chewing Tobacco Use: No Initiated information on smoking cessation: Yes 'Breaking Loose' booklet given: 05/14/20 - Substance & Tx. History Hx Alcohol Use: Yes Hx Substance Use: Yes Substance Use Type: Alcohol, Cocaine, Heroin Hx Substance Use Treatment: Yes (project renewal in 03/15) - Substances abused Heroin Substance route: Inhalation Amount used: 7 bags Age of first use: 19 Date of last use: 05/13/20 Alcohol Substance route: Oral Frequency: Daily Amount used: 6 packs of 16 ozs of beer Age of first use: 19 Date of last use: 05/13/20 Crack Substance route: Smoking Amount used: 80$ Age of first use: 19 Date of last use: 05/12/20 Admission Physical Exam S - Vital Signs Vital Signs: t97.8,p60,r8,bp111/70 - Physical General Appearance: Yes: Moderate Distress, Tremorous, Irritable, Sweating, Anxious HEENTM: Yes: Normal ENT Inspection, IAN, Pharynx Normal Respiratory: Yes: Within Normal Limits, Lungs Clear, Normal Breath Sounds Neck: Yes: Within Normal Limits, Supple, Trachea in good position Breast: Yes: Within Normal Limits Cardiology: Yes: Within Normal Limits, Regular Rhythm, Regular Rate, S1, S2 Abdominal: Yes: Within Normal Limits, Normal Bowel Sounds, Non Tender, Flat, Soft Genitourinary: Yes: Within Normal Limits Back: Yes: Muscle Spasm Musculoskeletal: Yes: Back pain, Muscle Pain Extremities: Yes: Tremors, Inflammation Neurological: Yes: Fully Oriented, Alert, Motor Strength 5/5 Integumentary: Yes: Dry Lymphatic: Yes: Within Normal Limits - Diagnostic (1) Opioid dependence with withdrawal Current Visit: No Status: Chronic (2) Alcohol dependence with uncomplicated withdrawal Current Visit: No Status: Chronic (3) Chronic back pain Current Visit: No Status: Chronic Qualifiers: Back pain location: back pain in unspecified location Back pain laterality: unspecified Qualified Code(s): M54.9 - Dorsalgia, unspecified; G89.29 - Other chronic pain (4) Cocaine dependence Current Visit: No Status: Chronic Qualifiers: Substance use status: uncomplicated Qualified Code(s): F14.20 - Cocaine dependence, uncomplicated (5) Nicotine dependence Current Visit: No Status: Chronic Qualifiers: Nicotine product type: cigarettes Substance use status: uncomplicated Qualified Code(s): F17.210 - Nicotine dependence, cigarettes, uncomplicated (6) Underweight Current Visit: No Status: Chronic (7) Low back pain Current Visit: Yes Status: Acute Cleared for Admission [facility] - Detox or Rehab [facility] Level of Care: Medically Managed Detox Regimen/Protocol: Methadone/Librium Breathalyzer - Breathalyzer Breathalyzer: 0 Urine Drug Screen - Test Device Lot number: [id number] Expiration date: 05/26/21 - Control Is test valid?: Yes - Results Drug screen NEGATIVE: No Urine drug screen results: SUPRIYA-Cocaine, FEN-Fentanyl, MOP-Opiates Inpatient Rehab Admission - Rehab Decision to Admit Inpatient rehab admission?: No
[2020-05-14 18:50] VITALS: BMI 21.2
[2020-05-14] MEDS ORDERED: MAGNESIUM CITRATE 300 ML BOTTLE PO PRN (18:53)
[2020-05-14] MEDS ORDERED: MENTHOL/PHENOL 1 EACH UD MM PRN (18:53)
[2020-05-14] MEDS ORDERED: NICOTINE POLACRILEX 2 MG GUM BUC PRN (18:53)
[2020-05-14] MEDS ORDERED: MAGNESIUM HYDROX 2400MG/30ML ORAL SUSPENSION 30 ML CUP PO PRN (18:53)
[2020-05-14] MEDS ORDERED: cloNIDine HCL 0.1 MG TABLET PO PRN (18:53)
[2020-05-14] MEDS ORDERED: BISMUTH SUBSALICYLATE 524 MG/30 ML UD PO PRN (18:53)
[2020-05-14] MEDS ORDERED: chlordiazePOXIDE HCL 25 MG CAPSULE PO PRN (18:53)
[2020-05-14] MEDS ORDERED: ACETAMINOPHEN 325 MG TABLET (FP) PO PRN (18:53)
[2020-05-14] MEDS ORDERED: MAG HYDROX/AL HYDROX/SIMETH 30 ML UNIT-DOSE CUP PO PRN (18:53)
[2020-05-14] MEDS ORDERED: ONDANSETRON *ODT* 4 MG TABLET SL ONE (19:30)
[2020-05-14] MEDS ORDERED: METHADONE HCL 10 MG TABLET (FOR DETOX USE ONLY) PO ONE (19:30)
[2020-05-14] MEDS: hydrOXYzine PAMOATE 25 MG CAPSULE (FP) PO SCH (22:07)
[2020-05-14] MEDS: THIAMINE HCL 100 MG TABLET (FP) PO SCH (22:07)
[2020-05-14] MEDS: chlordiazePOXIDE HCL 25 MG CAPSULE PO SCH (22:07)
[2020-05-14] MEDS: MELATONIN 5 MG TABLETS PO SCH (22:08)
[2020-05-15] MEDS: chlordiazePOXIDE HCL 25 MG CAPSULE PO SCH ×4 (05:26→22:12)
[2020-05-15] MEDS: hydrOXYzine PAMOATE 25 MG CAPSULE (FP) PO SCH ×5 (05:27→22:12)
[2020-05-15] MEDS ORDERED: METHADONE HCL 5 MG TABLET (FOR DETOX USE ONLY) ONE (09:00)
[2020-05-15] MEDS ORDERED: METHADONE HCL 10 MG TABLET (FOR DETOX USE ONLY) ONE (09:01)
[2020-05-15] MEDS: METHOCARBAMOL 500 MG TABLET PO PRN (09:26)
[2020-05-15] MEDS: IBUPROFEN 400 MG TABLET (FP) PO PRN (09:26)
[2020-05-15] MEDS ORDERED: METHADONE (DETOX) 20 MG, METHADONE (DETOX) 5 MG PO ONE (10:00)
[2020-05-15] MEDS: PRENATAL VITAMINS W/ FOLIC ACID TABLET (FP) PO SCH (10:14)
[2020-05-15 10:15] LABS: HEMATOCRIT 39.4 % (35.4-49); HEMOGLOBIN 12.7 GM/dL (11.7-16.9); MCH 27.6 pg (25.7-33.7); MCHC 32.1 g/dl (32.0-35.9); MEAN CELL VOLUME 85.8 fl (80-96); MEAN PLT VOLUME 7.5 fl (7.5-11.1); PLATELET COUNT 279 K/MM3 (134-434); RDW 14.8 % (11.9-15.9); WHITE BLOOD COUNT 3.2 K/mm3 (4.0-10.0)
[2020-05-15] MEDS: NICOTINE 7 MG/24 HOURS TOPICAL PATCH TD SCH (10:15)
[2020-05-15 10:35] LABS: ALBUMIN 2.8 g/dl (3.4-5.0); BLOOD UREA NITROGEN 15.9 mg/dL (7-18); CALCIUM 8.7 mg/dL (8.5-10.1); CREATININE 1.1 mg/dL (0.55-1.3); POTASSIUM 4.2 mmol/L (3.5-5.1); TOT PROT 5.8 g/dl (6.4-8.2)
[2020-05-15 10:36] LABS: BILIRUBIN,TOTAL 0.8 mg/dL (0.2-1)
--- NOTE | 2020-05-15 10:38 | CONSULT ---
[facility] Psychiatric Consult - Data Date of interview: 05/15/20 Admission source: Self-referred Identifying data: Mr Leon is a 49 years old single Black male, father of 6 children, unemployed [employer], homeless seeking detox treatment for alcohol, opioid and cocaine Substance Abuse History: Reports history of alcohol, heroin and cocaine use. Refer toaddiction counselor's summary for further information. Medical History: Unremarkable besides low back pain. Smokes 10 cigaretes daily Psychiatric History: Denies history of previous psychiatric treatment. However, reports sheeping poorly Physical/Sexual Abuse/Trauma History: Denies history of abuse as a child or DV relationship as an adult Mental Status Exam - Mental Status Exam Alert and Oriented to: Time, Place, Person Cognitive Function: Fair Patient Appearance: Well Groomed Mood: Hopeful Affect: Appropriate Patient Behavior: Cooperative Speech Pattern: Clear Voice Loudness: Normal Thought Process: Intact, Goal Oriented Thought Disorder: Not Present Hallucinations: Denies Suicidal Ideation: Denies Homicidal Ideation: Denies Insight/Judgement: Poor Sleep: Poorly Appetite: Good Muscle strength/Tone: Normal Gait/Station: Normal Psychiatric Findings - Problem List ([place] 1, 2,3) (1) Substance-induced sleep disorder Current Visit: Yes Status: Acute (2) Alcohol dependence with uncomplicated withdrawal Current Visit: No Status: Chronic (3) Opioid dependence with withdrawal Current Visit: No Status: Chronic (4) Cocaine dependence, uncomplicated Current Visit: No Status: Chronic (5) Nicotine dependence Current Visit: No Status: Chronic Qualifiers: Nicotine product type: cigarettes Substance use status: uncomplicated Qualified Code(s): F17.210 - Nicotine dependence, cigarettes, uncomplicated (6) Chronic back pain Current Visit: No Status: Chronic Qualifiers: Back pain location: back pain in unspecified location Back pain laterality: unspecified Qualified Code(s): M54.9 - Dorsalgia, unspecified; G89.29 - Other chronic pain - Initial Treatment Plan Initial Treatment Plan: 1) Start Belsomra 10 mg po HS prn for insomnia. 2) Continue inpatient detoxification
--- NOTE | 2020-05-15 13:08 | PN ---
S CIWA - CIWA Score Nausea/Vomitin Muscle Tremors: 2 Anxiety: 2 Agitation: 2 Paroxysmal Sweats: No Perspiration Orientation: 0-Oriented Tacttile Disturbances: 1-Very Mild Itch/Numbness Auditory Disturbances: 0-None Visual Disturbances: 0-None Headache: 2-Mild CIWA-Ar Total Score: 11 S COWS - Scale Resting Pulse: 1= [place] 81-100 Sweatin= No chills or Flushing Restless Observation: 1= Difficult to Sit Still Pupil Size: 0= Normal to Room Light Bone or Joint Aches: 1= Mild Discomfort Runny Nose/ Eye Tearin= Nasal Congestion GI Upset > 30mins: 1= Stomach Cramp Tremor Observation of Outstretched Hands: 2= Slight Tremor Visible Yawning Observation: 1= 1-2x During Session Anxiety or Irritability: 2=Irritable/Anxious Goose Flesh Skin: 0=Smooth Skin COWS Score: 10 S Progress Note (SOAP) Subjective: alert,irritable,interrupted sleep,tremor,pain in the body and back Objective: 05/15/20 13:10 Vital Signs Temperature 98.8 F 05/15/20 09:08 Pulse Rate 81 05/15/20 09:08 Respiratory Rate 18 05/15/20 09:08 Blood Pressure 127/71 05/15/20 09:08 O2 Sat by Pulse Oximetry (%) 99 05/15/20 09:08 Laboratory Last Values WBC 3.2 K/mm3 (4.0-10.0) L 05/15/20 08:15 RBC 4.60 M/mm3 (4.00-5.60) 05/15/20 08:15 Hgb 12.7 GM/dL (11.7-16.9) 05/15/20 08:15 Hct 39.4 % (35.4-49) 05/15/20 08:15 MCV 85.8 fl (80-96) 05/15/20 08:15 MCH 27.6 pg (25.7-33.7) 05/15/20 08:15 MCHC 32.1 g/dl (32.0-35.9) 05/15/20 08:15 RDW 14.8 % (11.9-15.9) 05/15/20 08:15 Plt Count 279 K/MM3 (134-434) 05/15/20 08:15 MPV 7.5 fl (7.5-11.1) 05/15/20 08:15 Sodium 140 mmol/L (136-145) 05/15/20 08:15 Potassium 4.2 mmol/L (3.5-5.1) 05/15/20 08:15 Chloride 106 mmol/L (98-107) 05/15/20 08:15 Carbon Dioxide 30 mmol/L (21-32) 05/15/20 08:15 Anion Gap 4 MMOL/L (8-16) L 05/15/20 08:15 BUN 15.9 mg/dL (7-18) 05/15/20 08:15 Creatinine 1.1 mg/dL (0.55-1.3) 05/15/20 08:15 Est GFR (CKD-EPI)AfAm 90.88 05/15/20 08:15 Est GFR (CKD-EPI)NonAf 78.41 05/15/20 08:15 Random Glucose 63 mg/dL (74-106) L 05/15/20 08:15 Calcium 8.7 mg/dL (8.5-10.1) 05/15/20 08:15 Total Bilirubin 0.8 mg/dL (0.2-1) 05/15/20 08:15 AST 20 U/L (15-37) 05/15/20 08:15 ALT 23 U/L (13-61) 05/15/20 08:15 Alkaline Phosphatase 91 U/L (45-117) 05/15/20 08:15 Total Protein 5.8 g/dl (6.4-8.2) L 05/15/20 08:15 Albumin 2.8 g/dl (3.4-5.0) L 05/15/20 08:15 Syphilis Serology Non-reactive (NONREACTIVE) 05/15/20 08:15 Assessment: 05/15/20 13:10 withdrawal symptom Plan: continue detox methadone and librium regimen,encourage oral fluid
[2020-05-15] MEDS ORDERED: SUVOREXANT 10 MG TABLET PO PRN (22:00)
[2020-05-15] MEDS: THIAMINE HCL 100 MG TABLET (FP) PO SCH (22:12)
[2020-05-15] MEDS: MELATONIN 5 MG TABLETS PO SCH (22:13)
[2020-05-16] MEDS ORDERED: chlordiazePOXIDE HCL 25 MG CAPSULE PO SCH (05:00)
[2020-05-16] MEDS: hydrOXYzine PAMOATE 25 MG CAPSULE (FP) PO SCH (06:26)
[2020-05-16] MEDS ORDERED: METHADONE HCL 10 MG TABLET (FOR DETOX USE ONLY) PO ONE (10:00)
[2020-05-16] MEDS ORDERED: diazePAM 5 MG TABLET PO PRN (10:06)
--- NOTE | 2020-05-16 10:14 | PN ---
[facility] CIWA - CIWA Score Nausea/Vomitin-No Nausea/No Vomiting Muscle Tremors: 2 Anxiety: 2 Agitation: 2 Paroxysmal Sweats: 2 Orientation: 0-Oriented Tacttile Disturbances: 0-None Auditory Disturbances: 0-None Visual Disturbances: 0-None Headache: 0-None Present CIWA-Ar Total Score: 8 BHS COWS - Scale Resting Pulse: 1= [place] 81-100 Sweatin= Chills/Flushing Restless Observation: 1= Difficult to Sit Still Pupil Size: 0= Normal to Room Light Bone or Joint Aches: 2= Severe Diffuse Aches Runny Nose/ Eye Tearin= None GI Upset > 30mins: 1= Stomach Cramp Tremor Observation of Outstretched Hands: 1= Tremor [place], Not Seen Yawning Observation: 1= 1-2x During Session Anxiety or Irritability: 2=Irritable/Anxious Goose Flesh Skin: 0=Smooth Skin COWS Score: 10 S Progress Note (SOAP) Subjective: sweats shakes interrupted sleep groggy the librium is upsetting my stomach, please change the medication for me. Objective: 05/16/20 10:14 Vital Signs Temperature 97.5 F L 05/16/20 08:55 Pulse Rate 86 05/16/20 08:55 Respiratory Rate 18 05/16/20 08:55 Blood Pressure 124/69 05/16/20 08:55 O2 Sat by Pulse Oximetry (%) 95 05/16/20 08:55 Laboratory Tests 05/15/20 05/15/20 05/15/20 08:15 08:15 08:15 WBC 3.2 L RBC 4.60 Hgb 12.7 Hct 39.4 MCV 85.8 MCH 27.6 MCHC 32.1 RDW 14.8 Plt Count 279 MPV 7.5 Sodium 140 Potassium 4.2 Chloride 106 Carbon Dioxide 30 Anion Gap 4 L BUN 15.9 Creatinine 1.1 Est GFR (CKD-EPI)AfAm 90.88 Est GFR (CKD-EPI)NonAf 78.41 Random Glucose 63 L Calcium 8.7 Total Bilirubin 0.8 AST 20 ALT 23 Alkaline Phosphatase 91 Total Protein 5.8 L Albumin 2.8 L Syphilis Serology Non-reactive labs noted aaox3 ambulating no acute distress Assessment: 05/16/20 10:14 withdrawals libirum d/c as per request. pt agreed to take valium regimen in stead of librium for detox. Plan: continue detox increase fluids
[2020-05-16] MEDS: NICOTINE 7 MG/24 HOURS TOPICAL PATCH TD SCH (10:36)
[2020-05-16] MEDS: PRENATAL VITAMINS W/ FOLIC ACID TABLET (FP) PO SCH (10:37)
[2020-05-16] MEDS: diazePAM 5 MG TABLET PO SCH ×2 (13:32→22:06)
[2020-05-16] MEDS: MELATONIN 5 MG TABLETS PO SCH (22:05)
[2020-05-16] MEDS: THIAMINE HCL 100 MG TABLET (FP) PO SCH (22:05)
[2020-05-17] MEDS ORDERED: chlordiazePOXIDE HCL 10 MG CAPSULE PO PRN
[2020-05-17] MEDS ORDERED: chlordiazePOXIDE HCL 10 MG CAPSULE PO SCH (05:00)
[2020-05-17] MEDS: diazePAM 5 MG TABLET PO SCH ×4 (07:00→21:37)
[2020-05-17] MEDS ORDERED: METHADONE HCL 5 MG TABLET (FOR DETOX USE ONLY) ONE (08:34)
[2020-05-17] MEDS ORDERED: METHADONE HCL 10 MG TABLET (FOR DETOX USE ONLY) ONE (08:35)
[2020-05-17] MEDS: PRENATAL VITAMINS W/ FOLIC ACID TABLET (FP) PO SCH (09:53)
[2020-05-17] MEDS: NICOTINE 7 MG/24 HOURS TOPICAL PATCH TD SCH (09:53)
[2020-05-17] MEDS ORDERED: METHADONE (DETOX) 10 MG, METHADONE (DETOX) 5 MG PO ONE (10:00)
--- NOTE | 2020-05-17 10:00 | PN ---
S CIWA - CIWA Score Nausea/Vomitin-No Nausea/No Vomiting Muscle Tremors: 2 Anxiety: 1-Mildly Anxious Agitation: 2 Paroxysmal Sweats: 2 Orientation: 0-Oriented Tacttile Disturbances: 0-None Auditory Disturbances: 0-None Visual Disturbances: 0-None Headache: 0-None Present CIWA-Ar Total Score: 7 BHS COWS - Scale Resting Pulse: 0= [place] 80 or Below Sweatin= Chills/Flushing Restless Observation: 1= Difficult to Sit Still Pupil Size: 0= Normal to Room Light Bone or Joint Aches: 1= Mild Discomfort Runny Nose/ Eye Tearin= None GI Upset > 30mins: 0= None Tremor Observation of Outstretched Hands: 1= Tremor [place], Not Seen Yawning Observation: 0= None Anxiety or Irritability: 1=Feels Anxious/Irritable Goose Flesh Skin: 0=Smooth Skin COWS Score: 5 S Progress Note (SOAP) Subjective: sweats shakes interrupted sleep agitation Objective: 05/17/20 09:59 Vital Signs Temperature 97.3 F L 05/17/20 08:37 Pulse Rate 78 05/17/20 08:37 Respiratory Rate 17 05/17/20 08:37 Blood Pressure 127/70 05/17/20 08:37 O2 Sat by Pulse Oximetry (%) 96 05/17/20 05:42 Laboratory Tests 05/14/20 05/15/20 05/15/20 23:49 08:15 08:15 WBC 3.2 L RBC 4.60 Hgb 12.7 Hct 39.4 MCV 85.8 MCH 27.6 MCHC 32.1 RDW 14.8 Plt Count 279 MPV 7.5 Sodium Potassium Chloride Carbon Dioxide Anion Gap BUN Creatinine Est GFR (CKD-EPI)AfAm Est GFR (CKD-EPI)NonAf Random Glucose Calcium Total Bilirubin AST ALT Alkaline Phosphatase Total Protein Albumin Syphilis Serology Non-reactive COVID-19 ([facility]) Not detected 05/15/20 08:15 WBC RBC Hgb Hct MCV MCH MCHC RDW Plt Count MPV Sodium 140 Potassium 4.2 Chloride 106 Carbon Dioxide 30 Anion Gap 4 L BUN 15.9 Creatinine 1.1 Est GFR (CKD-EPI)AfAm 90.88 Est GFR (CKD-EPI)NonAf 78.41 Random Glucose 63 L Calcium 8.7 Total Bilirubin 0.8 AST 20 ALT 23 Alkaline Phosphatase 91 Total Protein 5.8 L Albumin 2.8 L Syphilis Serology COVID-19 ([facility]) labs noted aaox3 ambulating no acute distress Assessment: 05/17/20 10:00 withdrawals Plan: continue detox
[2020-05-17] MEDS ORDERED: MASKS NR ONE (16:18)
[2020-05-17] MEDS ORDERED: PT OWN MED DRAWER 7, Y5N ONE (20:41)
[2020-05-17] MEDS: hydrOXYzine PAMOATE 25 MG CAPSULE (FP) PO PRN (21:38)
[2020-05-17] MEDS: THIAMINE HCL 100 MG TABLET (FP) PO SCH (21:38)
[2020-05-17] MEDS: MELATONIN 5 MG TABLETS PO SCH (21:38)
[2020-05-18] MEDS ORDERED: chlordiazePOXIDE HCL 10 MG CAPSULE PO SCH (05:00)
[2020-05-18] MEDS: METHOCARBAMOL 500 MG TABLET PO PRN (06:16)
[2020-05-18] MEDS: diazePAM 5 MG TABLET PO SCH ×2 (06:16→17:27)
[2020-05-18] MEDS ORDERED: METHADONE HCL 10 MG TABLET (FOR DETOX USE ONLY) PO ONE (10:00)
[2020-05-18] MEDS: PRENATAL VITAMINS W/ FOLIC ACID TABLET (FP) PO SCH (10:55)
[2020-05-18] MEDS: NICOTINE 7 MG/24 HOURS TOPICAL PATCH TD SCH (10:56)
--- NOTE | 2020-05-18 11:23 | PN ---
[facility] CIWA - CIWA Score Nausea/Vomitin-No Nausea/No Vomiting Muscle Tremors: 1-None Visible, but [place] Anxiety: 1-Mildly Anxious Agitation: 1-Slight > Activity Paroxysmal Sweats: No Perspiration Orientation: 0-Oriented Tacttile Disturbances: 0-None Auditory Disturbances: 0-None Visual Disturbances: 0-None Headache: 0-None Present CIWA-Ar Total Score: 3 S COWS - Scale Resting Pulse: 0= ID 80 or Below Sweatin= Chills/Flushing Restless Observation: 0= Sits Still Pupil Size: 0= Normal to Room Light Bone or Joint Aches: 1= Mild Discomfort Runny Nose/ Eye Tearin= None GI Upset > 30mins: 0= None Tremor Observation of Outstretched Hands: 1= Tremor [place], Not Seen Yawning Observation: 0= None Anxiety or Irritability: 1=Feels Anxious/Irritable Goose Flesh Skin: 0=Smooth Skin COWS Score: 4 [facility] Progress Note (SOAP) Subjective: irritable sweats interrupted sleep Objective: 05/18/20 11:26 Vital Signs Temperature 98.0 F 05/18/20 05:51 Pulse Rate 75 05/18/20 05:51 Respiratory Rate 16 05/18/20 05:51 Blood Pressure 148/88 05/18/20 05:51 O2 Sat by Pulse Oximetry (%) 96 05/18/20 05:51 aaox3 ambulating no acute distress Assessment: 05/18/20 11:26 withdrawals Plan: continue detox
[2020-05-18] MEDS: IBUPROFEN 400 MG TABLET (FP) PO PRN (20:26)
[2020-05-18] MEDS: THIAMINE HCL 100 MG TABLET (FP) PO SCH (21:11)
[2020-05-18] MEDS: MELATONIN 5 MG TABLETS PO SCH (23:00)
[2020-05-19] MEDS ORDERED: chlordiazePOXIDE HCL 10 MG CAPSULE PO ONE (05:00)
[2020-05-19] MEDS ORDERED: diazePAM 5 MG TABLET PO ONE (06:00)
[2020-05-19] MEDS ORDERED: METHADONE HCL 5 MG TABLET (FOR DETOX USE ONLY) PO ONE (06:00)
--- NOTE | 2020-05-19 08:36 | DS ---
[facility] Detox Discharge Summary Admission Date: 05/14/20 Discharge Date: 05/19/20 - History Present History: Alcohol Dependence, Cannabis Dependence, Cocaine Dependence, Opioid Dependence - Physical Exam Results Vital Signs: Vital Signs Temperature 97.1 F L 05/19/20 05:31 Pulse Rate 55 L 05/19/20 05:31 Respiratory Rate 16 05/19/20 05:31 Blood Pressure 131/70 05/19/20 05:31 O2 Sat by Pulse Oximetry (%) 98 05/19/20 05:31 Pertinent Admission Physical Exam Findings: Vital Signs Temperature 97.1 F L 05/19/20 05:31 Pulse Rate 55 L 05/19/20 05:31 Respiratory Rate 16 05/19/20 05:31 Blood Pressure 131/70 05/19/20 05:31 O2 Sat by Pulse Oximetry (%) 98 05/19/20 05:31 Laboratory Tests 05/14/20 05/15/20 05/15/20 23:49 08:15 08:15 WBC 3.2 L RBC 4.60 Hgb 12.7 Hct 39.4 MCV 85.8 MCH 27.6 MCHC 32.1 RDW 14.8 Plt Count 279 MPV 7.5 Sodium Potassium Chloride Carbon Dioxide Anion Gap BUN Creatinine Est GFR (CKD-EPI)AfAm Est GFR (CKD-EPI)NonAf Random Glucose Calcium Total Bilirubin AST ALT Alkaline Phosphatase Total Protein Albumin Syphilis Serology Non-reactive COVID-19 (SOPHIE) Not detected 05/15/20 08:15 WBC RBC Hgb Hct MCV MCH MCHC RDW Plt Count MPV Sodium 140 Potassium 4.2 Chloride 106 Carbon Dioxide 30 Anion Gap 4 L BUN 15.9 Creatinine 1.1 Est GFR (CKD-EPI)AfAm 90.88 Est GFR (CKD-EPI)NonAf 78.41 Random Glucose 63 L Calcium 8.7 Total Bilirubin 0.8 AST 20 ALT 23 Alkaline Phosphatase 91 Total Protein 5.8 L Albumin 2.8 L Syphilis Serology COVID-19 (SOPHIE) aaox3 ambulating no acute distress lungs CTA - Treatment Hospital Course: Detox Protocol Followed, Detoxed Safely, Responded well, Discharged Condition Good, Rehab Referral Accepted - Medication Discharge Medications: Ambulatory Orders NK [No Known Home Medication] 05/14/20 - Diagnosis (1) Low back pain Current Visit: Yes Status: Acute (2) Substance-induced sleep disorder Current Visit: Yes Status: Acute (3) Nasal congestion with rhinorrhea Current Visit: No Status: Acute (4) Alcohol dependence with uncomplicated withdrawal Current Visit: Yes Status: Chronic (5) Chronic back pain Current Visit: No Status: Chronic Qualifiers: Back pain location: back pain in unspecified location Back pain laterality: unspecified Qualified Code(s): M54.9 - Dorsalgia, unspecified; G89.29 - Other chronic pain (6) Cocaine dependence, uncomplicated Current Visit: No Status: Chronic (7) Depression (emotion) Current Visit: No Status: Chronic Qualifiers: Depression Type: dysthymia Qualified Code(s): F34.1 - Dysthymic disorder (8) Nicotine dependence Current Visit: Yes Status: Chronic Qualifiers: Nicotine product type: cigarettes Substance use status: uncomplicated Qualified Code(s): F17.210 - Nicotine dependence, cigarettes, uncomplicated (9) Opioid dependence on agonist therapy Current Visit: No Status: Chronic (10) Opioid dependence with withdrawal Current Visit: Yes Status: Chronic (11) Underweight Current Visit: No Status: Chronic - AMA Did Patient Leave Against Medical Advice: No
[2020-05-19] MEDS: PRENATAL VITAMINS W/ FOLIC ACID TABLET (FP) PO SCH (11:02)
[2020-05-19] MEDS: NICOTINE 7 MG/24 HOURS TOPICAL PATCH TD SCH (11:02)
[2020-05-19] MEDS ORDERED: SUVOREXANT 10 MG TABLET PO PRN (12:38)
[2020-05-19] MEDS: hydrOXYzine PAMOATE 25 MG CAPSULE (FP) PO PRN (21:55)
[2020-05-19] MEDS: MELATONIN 5 MG TABLETS PO SCH (21:56)
[2020-05-19] MEDS: THIAMINE HCL 100 MG TABLET (FP) PO SCH (21:56)
[2020-05-19] MEDS ORDERED: PT OWN MED DRAWER 7, Y5N ONE (21:59)
[2020-05-20] MEDS: PRENATAL VITAMINS W/ FOLIC ACID TABLET (FP) PO SCH (10:12)
[2020-05-20] MEDS: NICOTINE 7 MG/24 HOURS TOPICAL PATCH TD SCH (10:12)
[2020-05-20] MEDS: MELATONIN 5 MG TABLETS PO SCH (22:19)
[2020-05-20] MEDS: THIAMINE HCL 100 MG TABLET (FP) PO SCH (22:19)
[2020-05-21] MEDS: NICOTINE 7 MG/24 HOURS TOPICAL PATCH TD SCH (10:11)
[2020-05-21] MEDS: PRENATAL VITAMINS W/ FOLIC ACID TABLET (FP) PO SCH ×2 (10:11→11:55)
[2020-05-21] MEDS: ACETAMINOPHEN 325 MG TABLET (FP) PO PRN ×2 (11:55→21:55)
[2020-05-21 17:59] LABS: PH,URINE 7.5 (5.0-8.0); URINE APPEARANCE CLEAR; URINE BILIRUBIN NEGATIVE (NEGATIVE); URINE COLOR YELLOW; URINE GLUCOSE (UA) NEGATIVE (NEGATIVE); URINE KETONE NEGATIVE (NEGATIVE); URINE LEUK ESTERASE NEGATIVE (NEGATIVE); URINE NITRITE NEGATIVE (NEGATIVE); URINE PROTEIN NEGATIVE (NEGATIVE); URINE UROBILINOGEN 0.2 mg/dL (0.2-1.0)
[2020-05-21 20:56] VITALS: TEMP 97.7
[2020-05-21] MEDS: THIAMINE HCL 100 MG TABLET (FP) PO SCH (21:53)
[2020-05-21] MEDS: MELATONIN 5 MG TABLETS PO SCH (21:53)
[2020-05-22 08:06] VITALS: BP 127/65; PULSE 59
[2020-05-22] MEDS: NICOTINE 7 MG/24 HOURS TOPICAL PATCH TD SCH (09:45)
[2020-05-22] MEDS: PRENATAL VITAMINS W/ FOLIC ACID TABLET (FP) PO SCH (09:46)
[2020-05-22] MEDS ORDERED: PANTOPRAZOLE 40 MG TABLET PO SCH (10:00)
[2020-05-22] MEDS ORDERED: SUVOREXANT 10 MG TABLET PO PRN (22:00)
== END 2020-05-19 11:14 | disposition other institution (70) | DRG 773 ==
LOC: YASAS 16:43 → Y6N 19:26 → Y3W 05-19 11:13
PROVIDERS: ADMIT Allergy & Immunology; ATTEND Allergy & Immunology
PROC: HZ2ZZZZ Detoxification Services for Substance Abuse Treatment (ICD-10-PCS; principal; 2020-05-14)
DX: F10.230 Alcohol dependence with withdrawal, uncomplicated (principal); F11.23 Opioid dependence with withdrawal; F14.20 Cocaine dependence, uncomplicated; F17.210 Nicotine dependence, cigarettes, uncomplicated; F19.282 Other psychoactive substance dependence with psychoactive substance-induced sleep disorder; F34.1 Dysthymic disorder; J34.89 Other specified disorders of nose and nasal sinuses; R09.81 Nasal congestion; M54.5 Low back pain; G89.29 Other chronic pain; R63.6 Underweight; Z68.22 Body mass index [BMI] 22.0-22.9, adult; Z56.0 Unemployment, unspecified; Z59.0 Homelessness
CPT/HCPCS: 36415; 80053; 81003; 85027; 86780; U0003

== ENCOUNTER 2020-05-19 11:12 | Inpatient (IN) | payer OTHER ==
--- NOTE | 2020-05-22 14:58 | HP ---
[facility] Rehab Assess/Revision - Admission History Admitted to Rehab from: [address] - Findings Detox History & Physical reviewed: Yes Concur with findings: Yes Comments/Additional Findings: Pt was discharged from [address] [place] [address] on 05/19/20 and referred to rehab for aftercare. Inpatient Rehab Admission - Rehab Decision to Admit Inpatient rehab admission?: Yes - Initial Determination Are CD services needed?: Yes Free of communicable disease: Yes Not in need of hospitalization: Yes - Rehab Admission Criteria Previous failed treatment: Yes Poor recovery environment: Yes Comorbidities: Yes Lacks judgement: Yes Patient is meeting Inpatient Rehab admission criteria:: Yes
--- NOTE | 2020-05-22 15:03 | PN ---
[facility] COWS - Scale Resting Pulse: 0= ME 80 or Below Sweatin=Flushed/Facial Moisture Restless Observation: 0= Sits Still Pupil Size: 0= Normal to Room Light Bone or Joint Aches: 2= Severe Diffuse Aches Runny Nose/ Eye Tearin= Runny Nose/Eyes GI Upset > 30mins: 2= Nausea/Diarrhea (no diarrhea) Tremor Observation of Outstretched Hands: 1= Tremor [place], Not Seen Yawning Observation: 0= None Anxiety or Irritability: 1=Feels Anxious/Irritable Goose Flesh Skin: 3=Piloerection COWS Score: 13 [facility] Progress Note (SOAP) Subjective: Pt c/o withdrawal sx- nausea, stomach cramps, chills, queezy stomach, nasal congestion . Pt reports he is on suboxone MAT with [facility] on [address] [place] [address] josé luis Wilson. Suboxone 8mg/2mg sl BID #60 verified from [facility]. Last Picked up on 04/14/20. Pt reports last took Suboxone on 05/12/20 and was using Heroin on the street and had to come into detox. pt now wants to restart Suboxone and go back to [facility] after Rehab. Pt's request discussed with counselor Ms Caitlin Hidalgo who will follow up with patient for arrangement to CD aftercare. Objective: 05/22/20 15:34 Vital Signs - 24 hr 05/22/20 14:57 Temperature 98.4 F Pulse Rate 86 Respiratory 18 Rate Blood Pressure 112/68 UTox 05/22/20 bnzo (+) Meth (+) Assessment: 05/22/20 15:34 protracted withdrawal sx S/p Detox [address] Plan: Restart suboxone 4 mg po now. Then adjust to pt's regular dose in coming days. pt to return to [facility] after Rehab
[2020-05-22] MEDS ORDERED: MAGNESIUM CITRATE 300 ML BOTTLE PO PRN (15:05)
[2020-05-22] MEDS ORDERED: LOPERAMIDE HCL 2 MG CAPSULE PO PRN (15:05)
[2020-05-22] MEDS ORDERED: MENTHOL/PHENOL 1 EACH UD MM PRN (15:05)
[2020-05-22] MEDS ORDERED: guaiFENesin 200 MG/10 ML 10 ML UNIT-DOSE CUPS PO PRN (15:05)
[2020-05-22] MEDS ORDERED: MAGNESIUM HYDROX 2400MG/30ML ORAL SUSPENSION 30 ML CUP PO PRN (15:05)
[2020-05-22] MEDS ORDERED: P-EPHED 60MG/TRIPROLIDI 2.5MG TABLET PO PRN (15:05)
[2020-05-22] MEDS ORDERED: ACETAMINOPHEN 325 MG TABLET (FP) PO PRN (15:05)
[2020-05-22] MEDS ORDERED: BUPRENORPHINE/NALOXONE 4 MG/1 MG FILM PACKET SL ONE (15:30)
[2020-05-22] MEDS: MAG HYDROX/AL HYDROX/SIMETH 30 ML UNIT-DOSE CUP PO PRN (16:01)
[2020-05-22] MEDS: METHOCARBAMOL 500 MG TABLET PO PRN (16:01)
[2020-05-22] MEDS: hydrOXYzine PAMOATE 25 MG CAPSULE (FP) PO PRN (21:54)
[2020-05-22] MEDS: MELATONIN 5 MG TABLETS PO SCH (21:55)
[2020-05-22] MEDS: THIAMINE HCL 100 MG TABLET (FP) PO SCH (21:55)
[2020-05-23] MEDS: PRENATAL VITAMINS W/ FOLIC ACID TABLET (FP) PO SCH (10:07)
[2020-05-23] MEDS: BUPRENORPHINE/NALOXONE 8 MG/2 MG FILM PACKET SL SCH (10:08)
--- NOTE | 2020-05-23 15:25 | PN ---
S Progress Note Note: Suboxone 8mg/2 mg sl daily ordered Vital Signs - 24 hr 05/22/20 05/23/20 05/23/20 20:38 04:08 06:00 Temperature 98.0 F 98.0 F 97.7 F Pulse Rate 62 Respiratory 18 Rate Blood Pressure 109/67 O2 Sat by Pulse 95 95 98 Oximetry (%) 05/23/20 15:18 Temperature Pulse Rate Respiratory Rate Blood Pressure O2 Sat by Pulse 98 Oximetry (%) Pt may increase to previously original dose of 8mg/2mg sl BID if request to do so. Pt to follow up with prescriber Dr. Jake Wilson at [facility] for continued care.
[2020-05-23] MEDS: THIAMINE HCL 100 MG TABLET (FP) PO SCH (21:02)
[2020-05-23] MEDS: hydrOXYzine PAMOATE 25 MG CAPSULE (FP) PO PRN (21:02)
[2020-05-23] MEDS: MELATONIN 5 MG TABLETS PO SCH (21:02)
[2020-05-24] MEDS: BUPRENORPHINE/NALOXONE 8 MG/2 MG FILM PACKET SL SCH (09:35)
[2020-05-24] MEDS: PRENATAL VITAMINS W/ FOLIC ACID TABLET (FP) PO SCH (09:35)
[2020-05-24] MEDS: IBUPROFEN 400 MG TABLET (FP) PO PRN (09:35)
[2020-05-24] MEDS: LIDOCAINE 5% TOPICAL PATCH TP SCH (11:48)
[2020-05-24] MEDS: LIDOCAINE PATCH REMOVAL MC SCH (21:31)
[2020-05-24] MEDS: THIAMINE HCL 100 MG TABLET (FP) PO SCH (21:31)
[2020-05-24] MEDS: MELATONIN 5 MG TABLETS PO SCH (21:31)
[2020-05-24] MEDS: hydrOXYzine PAMOATE 25 MG CAPSULE (FP) PO PRN (21:32)
[2020-05-25] MEDS: PRENATAL VITAMINS W/ FOLIC ACID TABLET (FP) PO SCH (09:08)
[2020-05-25] MEDS: LIDOCAINE 5% TOPICAL PATCH TP SCH (09:08)
[2020-05-25] MEDS: BUPRENORPHINE/NALOXONE 8 MG/2 MG FILM PACKET SL SCH ×2 (09:09→18:02)
[2020-05-25] MEDS: IBUPROFEN 400 MG TABLET (FP) PO PRN (18:57)
[2020-05-25] MEDS: THIAMINE HCL 100 MG TABLET (FP) PO SCH (21:01)
[2020-05-25] MEDS: MELATONIN 5 MG TABLETS PO SCH (21:01)
[2020-05-25] MEDS: LIDOCAINE PATCH REMOVAL MC SCH (21:01)
[2020-05-26] MEDS: PRENATAL VITAMINS W/ FOLIC ACID TABLET (FP) PO SCH (09:54)
[2020-05-26] MEDS: BUPRENORPHINE/NALOXONE 8 MG/2 MG FILM PACKET SL SCH ×2 (09:54→18:00)
[2020-05-26] MEDS: IBUPROFEN 400 MG TABLET (FP) PO PRN ×2 (09:54→21:34)
[2020-05-26] MEDS: LIDOCAINE 5% TOPICAL PATCH TP SCH (09:56)
--- NOTE | 2020-05-26 11:23 | PN ---
S Progress Note Note: Patient evaluated for c/o dizziness. He denies chest pain, sob and syncope. States symptoms intermittent and resolve spontaneously. Vital Signs Temperature 97.4 F L 05/26/20 06:38 Pulse Rate 62 05/26/20 06:38 Respiratory Rate 16 05/26/20 06:38 Blood Pressure 108/73 05/26/20 06:38 O2 Sat by Pulse Oximetry (%) 97 05/26/20 06:38 Laboratory Tests 05/26/20 10:54 POC Glucometer 106 PE alert and oriented x 3 skin warm and dry car s1s2 resp cta bl ext full rom, amb ad angle no tremors cn 1-x11 grossly intact A/P Uzoihcapo-rydirkjl-idb resolved BS 106 Repeat BP 116/74 Encourage oral fluids monitor clinically
[2020-05-26] MEDS: LIDOCAINE PATCH REMOVAL MC SCH (21:35)
[2020-05-26] MEDS: MELATONIN 5 MG TABLETS PO SCH (21:35)
[2020-05-26] MEDS: THIAMINE HCL 100 MG TABLET (FP) PO SCH (21:35)
[2020-05-27] MEDS: PRENATAL VITAMINS W/ FOLIC ACID TABLET (FP) PO SCH (09:48)
[2020-05-27] MEDS: BUPRENORPHINE/NALOXONE 8 MG/2 MG FILM PACKET SL SCH ×2 (09:48→17:58)
[2020-05-27] MEDS: LIDOCAINE 5% TOPICAL PATCH TP SCH (09:49)
[2020-05-27] MEDS: MELATONIN 5 MG TABLETS PO SCH (21:47)
[2020-05-27] MEDS: LIDOCAINE PATCH REMOVAL MC SCH (21:47)
[2020-05-27] MEDS: THIAMINE HCL 100 MG TABLET (FP) PO SCH (21:47)
[2020-05-28] MEDS: IBUPROFEN 400 MG TABLET (FP) PO PRN (07:36)
[2020-05-28] MEDS: BUPRENORPHINE/NALOXONE 8 MG/2 MG FILM PACKET SL SCH ×2 (09:54→17:56)
[2020-05-28] MEDS: LIDOCAINE 5% TOPICAL PATCH TP SCH (09:54)
[2020-05-28] MEDS: PRENATAL VITAMINS W/ FOLIC ACID TABLET (FP) PO SCH (09:54)
[2020-05-28] MEDS: THIAMINE HCL 100 MG TABLET (FP) PO SCH (21:30)
[2020-05-28] MEDS: MELATONIN 5 MG TABLETS PO SCH ×2 (21:30→21:50)
[2020-05-28] MEDS: LIDOCAINE PATCH REMOVAL MC SCH (21:30)
[2020-05-29] MEDS: BUPRENORPHINE/NALOXONE 8 MG/2 MG FILM PACKET SL SCH ×2 (09:41→18:02)
[2020-05-29] MEDS: PRENATAL VITAMINS W/ FOLIC ACID TABLET (FP) PO SCH (09:41)
[2020-05-29] MEDS: LIDOCAINE 5% TOPICAL PATCH TP SCH (09:42)
[2020-05-29] MEDS: IBUPROFEN 400 MG TABLET (FP) PO PRN (09:44)
[2020-05-29] MEDS: MELATONIN 5 MG TABLETS PO SCH (21:01)
[2020-05-29] MEDS: THIAMINE HCL 100 MG TABLET (FP) PO SCH (21:01)
[2020-05-29] MEDS: LIDOCAINE PATCH REMOVAL MC SCH (21:02)
[2020-05-30] MEDS: IBUPROFEN 400 MG TABLET (FP) PO PRN (10:16)
[2020-05-30] MEDS: PRENATAL VITAMINS W/ FOLIC ACID TABLET (FP) PO SCH (10:16)
[2020-05-30] MEDS: BUPRENORPHINE/NALOXONE 8 MG/2 MG FILM PACKET SL SCH ×2 (10:18→17:31)
[2020-05-30] MEDS: LIDOCAINE 5% TOPICAL PATCH TP SCH (10:18)
[2020-05-30] MEDS: LIDOCAINE PATCH REMOVAL MC SCH (21:35)
[2020-05-30] MEDS: THIAMINE HCL 100 MG TABLET (FP) PO SCH (21:35)
[2020-05-30] MEDS: MELATONIN 5 MG TABLETS PO SCH (21:35)
[2020-05-31] MEDS: LIDOCAINE 5% TOPICAL PATCH TP SCH (10:20)
[2020-05-31] MEDS: PRENATAL VITAMINS W/ FOLIC ACID TABLET (FP) PO SCH (10:20)
[2020-05-31] MEDS: BUPRENORPHINE/NALOXONE 8 MG/2 MG FILM PACKET SL SCH ×2 (10:20→18:00)
[2020-05-31] MEDS: MAG HYDROX/AL HYDROX/SIMETH 30 ML UNIT-DOSE CUP PO PRN (12:40)
--- NOTE | 2020-05-31 14:45 | CONSULT ---
[facility] Psychiatric Consult - Data Date of interview: 05/31/20 Admission source: Transfer from [address] [place] [address]. Identifying data: Detoxification completed at [address] [place] [address]. Patient has enlisted in rehabilitation treatment at [address] to further address his MICHELLE issues and manage chronic insomnia. Patient is single, father of six, homeless, unemployed and supported on Public Assistance. Substance Abuse History: Discussed with the patient. MICHELLE profile as follows : Smoking history: Current every day smoker. Have you smoked in the past 12 months: Yes. Aproximately how many cigarettes per day: 10. Cigars Per Day: 0. Hx Chewing Tobacco Use: No. Initiated information on smoking cessation: Yes. 'Breaking Loose' booklet given: 05/14/20. - Substance & Tx. History. Hx Alcohol Use: Yes. Hx Substance Use: Yes. Substance Use Type: Alcohol, Cocaine, Heroin. Hx Substance Use Treatment: Yes ([facility] in 03/15). - Substances abused. Heroin. Substance route: Inhalation. Amount used: 7 bags. Age of first use: 19. Date of last use: 05/13/20. Alcohol. Substance route: Oral. Frequency: Daily. Amount used: 6 packs of 16 ozs of beer. Age of first use: 19. Date of last use: 05/13/20. Crack. Substance route: Smoking. Amount used: 80$. Age of first use: 19. Date of last use: 05/12/20 Medical History: Patient endorses good general health. Psychiatric History: Patient denies history of psychiatric hospitalizations, OPD care or suicide attempts. Physical/Sexual Abuse/Trauma History: Patient denies. Additional Comment: Urine drug screen results: SUPRIYA-Cocaine, FEN-Fentanyl, MOP- Opiates. Noted. Mental Status Exam - Mental Status Exam Alert and Oriented to: Time, Place, Person Cognitive Function: Good Patient Appearance: Well Groomed Mood: Hopeful Affect: Appropriate, Normal Range Patient Behavior: Appropriate, Cooperative Speech Pattern: Clear, Appropriate Voice Loudness: Normal Thought Process: Intact, Goal Oriented Thought Disorder: Not Present Hallucinations: Denies Suicidal Ideation: Denies Homicidal Ideation: Denies Insight/Judgement: Fair Sleep: Poorly, Difficulty falling asleep Appetite: Good Gait/Station: Normal Psychiatric Findings - Problem List ([place] 1, 2,3) (1) Alcohol use disorder Current Visit: Yes Status: Chronic (2) Opioid dependence on agonist therapy Current Visit: Yes Status: Chronic (3) Cocaine dependence, uncomplicated Current Visit: Yes Status: Chronic (4) Nicotine dependence Current Visit: Yes Status: Chronic Qualifiers: Nicotine product type: cigarettes Substance use status: uncomplicated Qualified Code(s): F17.210 - Nicotine dependence, cigarettes, uncomplicated (5) Insomnia Current Visit: Yes Status: Acute - Initial Treatment Plan Initial Treatment Plan: Psychoeducation. Sleep hygiene. Motivational counseling. Insomnia is addressed with trazodone 100 mg po hs (patient's request). Mr Leon is made aware of risk odf priapism. He grants consent (verbal) to MD. [place].
[2020-05-31] MEDS: traZODone HCL 100 MG TABLET (FP) PO SCH (21:08)
[2020-05-31] MEDS: THIAMINE HCL 100 MG TABLET (FP) PO SCH (21:08)
[2020-05-31] MEDS: MELATONIN 5 MG TABLETS PO SCH (21:09)
[2020-05-31] MEDS: LIDOCAINE PATCH REMOVAL MC SCH (21:09)
[2020-06-01] MEDS: BUPRENORPHINE/NALOXONE 8 MG/2 MG FILM PACKET SL SCH ×2 (09:55→18:53)
[2020-06-01] MEDS: LIDOCAINE 5% TOPICAL PATCH TP SCH (09:55)
[2020-06-01] MEDS: PRENATAL VITAMINS W/ FOLIC ACID TABLET (FP) PO SCH (09:55)
[2020-06-01] MEDS: traZODone HCL 100 MG TABLET (FP) PO SCH (21:34)
[2020-06-01] MEDS: THIAMINE HCL 100 MG TABLET (FP) PO SCH (21:34)
[2020-06-01] MEDS: LIDOCAINE PATCH REMOVAL MC SCH (21:35)
[2020-06-01] MEDS: MELATONIN 5 MG TABLETS PO SCH (21:35)
[2020-06-02] MEDS: LIDOCAINE 5% TOPICAL PATCH TP SCH (10:51)
[2020-06-02] MEDS: PRENATAL VITAMINS W/ FOLIC ACID TABLET (FP) PO SCH (10:52)
[2020-06-02] MEDS: BUPRENORPHINE/NALOXONE 8 MG/2 MG FILM PACKET SL SCH ×2 (10:52→17:57)
[2020-06-02] MEDS: LIDOCAINE PATCH REMOVAL MC SCH (21:13)
[2020-06-02] MEDS: THIAMINE HCL 100 MG TABLET (FP) PO SCH (21:13)
[2020-06-02] MEDS: MELATONIN 5 MG TABLETS PO SCH (21:14)
[2020-06-02] MEDS: traZODone HCL 100 MG TABLET (FP) PO SCH (21:14)
[2020-06-02] MEDS: MAG HYDROX/AL HYDROX/SIMETH 30 ML UNIT-DOSE CUP PO PRN (23:04)
[2020-06-03] MEDS: METHOCARBAMOL 500 MG TABLET PO PRN (06:46)
[2020-06-03] MEDS: LIDOCAINE 5% TOPICAL PATCH TP SCH (09:40)
[2020-06-03] MEDS: PRENATAL VITAMINS W/ FOLIC ACID TABLET (FP) PO SCH (09:40)
[2020-06-03] MEDS: BUPRENORPHINE/NALOXONE 8 MG/2 MG FILM PACKET SL SCH ×2 (09:40→18:05)
[2020-06-03] MEDS: traZODone HCL 100 MG TABLET (FP) PO SCH (21:39)
[2020-06-03] MEDS: THIAMINE HCL 100 MG TABLET (FP) PO SCH (21:39)
[2020-06-03] MEDS: LIDOCAINE PATCH REMOVAL MC SCH (21:40)
[2020-06-03] MEDS: MELATONIN 5 MG TABLETS PO SCH (21:40)
[2020-06-04 07:54] VITALS: TEMP 97.8
[2020-06-04] MEDS: PRENATAL VITAMINS W/ FOLIC ACID TABLET (FP) PO SCH (10:16)
[2020-06-04] MEDS: BUPRENORPHINE/NALOXONE 8 MG/2 MG FILM PACKET SL SCH ×2 (10:16→18:30)
[2020-06-04] MEDS: LIDOCAINE 5% TOPICAL PATCH TP SCH (10:16)
--- NOTE | 2020-06-04 13:26 | PN ---
S Progress Note Note: Psychiatric nurse practitioner note: Patient scheduled for discharge for 06/05/20. A 30 day prescription of trazodone 100mg HS was electronically sent to [facility], [address] [place] [address].
[2020-06-04] MEDS: LIDOCAINE PATCH REMOVAL MC SCH (21:08)
[2020-06-04] MEDS: THIAMINE HCL 100 MG TABLET (FP) PO SCH (21:08)
[2020-06-04] MEDS: traZODone HCL 100 MG TABLET (FP) PO SCH (21:08)
[2020-06-04] MEDS: MELATONIN 5 MG TABLETS PO SCH (21:09)
[2020-06-04] MEDS: METHOCARBAMOL 500 MG TABLET PO PRN (22:57)
[2020-06-05 07:30] VITALS: BP 117/76; PULSE 69
[2020-06-05] MEDS: PRENATAL VITAMINS W/ FOLIC ACID TABLET (FP) PO SCH (09:07)
[2020-06-05] MEDS: BUPRENORPHINE/NALOXONE 8 MG/2 MG FILM PACKET SL SCH (09:07)
[2020-06-05] MEDS: LIDOCAINE 5% TOPICAL PATCH TP SCH (09:07)
--- NOTE | 2020-06-05 09:21 | DS ---
[facility] Rehab Discharge Summary - [facility] Rehab Discharge Summary Admission Date: 05/19/20 Discharge Date: 06/05/20 - History Present History: Alcohol dependence, Cocaine dependence, Opioid dependence - Discharge Physical Exam Vital Signs: Vital Signs Temperature 97.8 F 06/05/20 07:29 Pulse Rate 69 06/05/20 07:29 Respiratory Rate 18 06/05/20 07:29 Blood Pressure 117/76 06/05/20 07:29 O2 Sat by Pulse Oximetry (%) 95 06/05/20 07:29 ROS DENIES ETOH/OPIOD CRAVINGS, SHAKES, SWEATS AND BODY ACHES PE ALERT AND ORIENTED X 3 SKIN WARM AND DRY CAR S1S2, RRR RESP CTA BL EXT NO TREMORS, AMB AD COMPA DENIES SI/HI A/P: ETOH/OPIOD DEPENDENCE COCAINE USE PATIENT IS MEDICALLY STABLE FOR D/C AFTERCARE ARRANGED FOR [facility] , APPT TODAY AT 11AM - Treatment Discharge Condition: Discharge condition good Hospital Course: PATIENT COMPLETED REHAB TODAY FOR ETOH/OPIOD DEPENDENCE. PATIENT IS MEDICALLY STABLE AND DENIES SI/HI. DURING COURSE OF TREATMENT, PATIENT ATTENDED GROUP MEETINGS, 1:1 SESSIONS WITH COUNSELOR AND STARTED ON SUBOXONE MAT. AFTERCARE ARRANGED FOR [facility], APPT TODAY AT 11AM. PATIENT MEDICALLY ADVISED TO F/U WITH PCP RECOMMENDED AND OTP TO MAINTAIN SOBRIETY. NARCAN PRESCRIPTION REFUSED. Ambulatory Orders traZODone HCL [Desyrel -] 100 mg PO HS #30 tablet 06/04/20 Buprenorphine/Naloxone [Suboxone 8Mg/2Mg Sl Film -] 1 film SL BID #6 film MDD 16mg 06/05/20 - Medication Discharge Medications: Ambulatory Orders traZODone HCL [Desyrel -] 100 mg PO HS #30 tablet 06/04/20 Buprenorphine/Naloxone [Suboxone 8Mg/2Mg Sl Film -] 1 film SL BID #6 film MDD 16mg 06/05/20 - Medication-Assisted Treatment (MAT) Medication-Assisted Treatment (MAT): Yes Medication Prescribed: Suboxone MAT Follow-up Referral: [facility], APPT 06/05/2020 11AM - Discharge Instructions Diet, activity, other medical instructions: Diet: REG TOLERATED Activity: AMB AD COMPA TOLERATED Other medical instructions: F/U WITH PCP RECOMMENDED - Follow-up Referral Minutes to complete discharge: 40 - AMA Did Patient Leave Against Medical Advice: No
== END 2020-06-05 09:55 | disposition home or self-care (01) | DRG 772 ==
LOC: YASAS 11:12 → Y3W 11:13
PROVIDERS: ADMIT Allergy & Immunology; ATTEND Allergy & Immunology
PROC: HZ42ZZZ Group Counseling for Substance Abuse Treatment, Cognitive-Behavioral (ICD-10-PCS; principal; 2020-05-19)
DX: F11.23 Opioid dependence with withdrawal (principal); F10.230 Alcohol dependence with withdrawal, uncomplicated; F14.20 Cocaine dependence, uncomplicated; F17.210 Nicotine dependence, cigarettes, uncomplicated; G47.00 Insomnia, unspecified; R42 Dizziness and giddiness
CPT/HCPCS: 82962

== ENCOUNTER 2023-10-25 22:18 | Inpatient (IN) | payer OTHER ==
[2023-10-25 23:18] VITALS: BMI 18.8
[2023-10-25] MEDS ORDERED: BENZOCAINE/MENTHOL (CHLORASEPTIC ) LOZENGE MM PRN (23:34)
[2023-10-25] MEDS ORDERED: ONDANSETRON *ODT* 4 MG TABLET SL PRN (23:34)
[2023-10-25] MEDS ORDERED: NALOXONE HCL (KLOXXADO) 8 MG SPRAY NS PRN (23:34)
[2023-10-25] MEDS ORDERED: IBUPROFEN 600 MG TABLET (FP) PO PRN (23:34)
[2023-10-25] MEDS ORDERED: MAGNESIUM HYDROX 2400MG/30ML ORAL SUSPENSION 30 ML CUP PO PRN (23:34)
[2023-10-25] MEDS ORDERED: POLYETHYLENE GLYCOL (HEALTHYLAX) 3350 17 GM PACKET PO PRN (23:34)
[2023-10-25] MEDS ORDERED: MAG HYDROX/AL HYDROX/SIMETH 30 ML UNIT-DOSE CUP PO PRN (23:34)
[2023-10-25] MEDS ORDERED: P-EPHED 60MG/TRIPROLIDI 2.5MG TABLET PO PRN (23:34)
[2023-10-25] MEDS ORDERED: guaiFENesin 600 MG TABLET.ER (FP) PO PRN (23:34)
[2023-10-25] MEDS ORDERED: DICYCLOMINE HCL 10 MG CAPSULE PO PRN (23:34)
[2023-10-25] MEDS ORDERED: BENZONATATE 200 MG CAPSULE PO PRN (23:34)
[2023-10-25] MEDS ORDERED: IBUPROFEN 400 MG TABLET (FP) PO PRN (23:34)
[2023-10-25] MEDS ORDERED: hydrOXYzine PAMOATE 25 MG CAPSULE (FP) PO PRN (23:34)
[2023-10-25] MEDS ORDERED: NALOXONE HCL 0.4 MG/ML VIAL IM PRN (23:34)
[2023-10-25] MEDS ORDERED: LOPERAMIDE HCL 2 MG CAPSULE PO PRN (23:34)
[2023-10-25] MEDS ORDERED: BISMUTH SUBSALICYLATE 524 MG/30 ML PO PRN (23:34)
[2023-10-25] MEDS ORDERED: ACETAMINOPHEN 325 MG TABLET (FP) PO PRN (23:34)
[2023-10-25] MEDS ORDERED: ALBUTEROL SO4 HFA INHALER IH PRN (23:40)
[2023-10-25] MEDS ORDERED: methaDONE HCL 10 MG TABLET (FOR DETOX USE ONLY) PO ONE (23:42)
[2023-10-25] MEDS ORDERED: cloNIDine HCL 0.1 MG TABLET PO PRN (23:42)
[2023-10-26] MEDS ORDERED: methaDONE HCL 10 MG TABLET (FOR DETOX USE ONLY) ONE (01:20)
[2023-10-26] MEDS: METHOCARBAMOL 500 MG TABLET PO PRN (09:40)
[2023-10-26] MEDS: PRENATAL VITAMINS W/ FOLIC ACID TABLET (FP) PO SCH (09:40)
[2023-10-26] MEDS: MELATONIN 5 MG TABLETS PO SCH (21:24)
[2023-10-26] MEDS: THIAMINE HCL 100 MG TABLET (FP) PO SCH (21:24)
[2023-10-26] MEDS: traZODone HCL 50 MG TABLET (FP) PO SCH (21:24)
[2023-10-27] MEDS: PRENATAL VITAMINS W/ FOLIC ACID TABLET (FP) PO SCH (09:38)
[2023-10-27] MEDS ORDERED: methaDONE HCL 10 MG TABLET (FOR DETOX USE ONLY) PO ONE (10:00)
[2023-10-27] MEDS: METHOCARBAMOL 500 MG TABLET PO PRN (21:23)
[2023-10-27] MEDS: traZODone HCL 50 MG TABLET (FP) PO SCH (21:23)
[2023-10-27] MEDS: MELATONIN 5 MG TABLETS PO SCH (21:44)
[2023-10-27] MEDS: THIAMINE HCL 100 MG TABLET (FP) PO SCH (21:45)
[2023-10-28] MEDS: PRENATAL VITAMINS W/ FOLIC ACID TABLET (FP) PO SCH (09:48)
[2023-10-28] MEDS: METHOCARBAMOL 500 MG TABLET PO PRN ×2 (09:48→21:46)
[2023-10-28] MEDS: traZODone HCL 50 MG TABLET (FP) PO SCH (21:45)
[2023-10-28] MEDS: THIAMINE HCL 100 MG TABLET (FP) PO SCH (21:45)
[2023-10-28] MEDS: MELATONIN 5 MG TABLETS PO SCH (21:46)
[2023-10-29] MEDS ORDERED: methaDONE HCL 10 MG TABLET (FOR DETOX USE ONLY) PO ONE (10:00)
[2023-10-29] MEDS: PRENATAL VITAMINS W/ FOLIC ACID TABLET (FP) PO SCH (10:31)
[2023-10-29] MEDS: traZODone HCL 50 MG TABLET (FP) PO SCH (21:48)
[2023-10-29] MEDS: MELATONIN 5 MG TABLETS PO SCH (21:48)
[2023-10-29] MEDS: THIAMINE HCL 100 MG TABLET (FP) PO SCH (21:48)
[2023-10-29] MEDS: METHOCARBAMOL 500 MG TABLET PO PRN (21:48)
[2023-10-30 09:22] VITALS: BP 128/82; PULSE 80; RESP 18; TEMP 98
== END 2023-10-30 09:54 | disposition home or self-care (01) | DRG 773 ==
LOC: YASAS 22:18 → Y3N 10-26 01:48
PROVIDERS: ADMIT Allergy & Immunology; ATTEND Surgery
PROC: HZ2ZZZZ Detoxification Services for Substance Abuse Treatment (ICD-10-PCS; principal; 2023-10-26)
DX: F11.23 Opioid dependence with withdrawal (principal); F14.20 Cocaine dependence, uncomplicated; F19.282 Other psychoactive substance dependence with psychoactive substance-induced sleep disorder; U07.1 COVID-19; M54.50 Low back pain, unspecified; G89.29 Other chronic pain; Z87.891 Personal history of nicotine dependence
CPT/HCPCS: 36415; 71045-TC-FY; 80053; 85025; 87635; 87811